=== PATIENT | female | born 1930 | race Caucasian/White ===

== ENCOUNTER 2016-11-11 08:35 | Inpatient (IN) | payer MEDICARE ==
[~2016-11-11] VITALS: Ht 152.4 cm; Wt 49.9 kg
[2016-11-11] VITALS (16 sets, daily range): BP systolic 138–165; BP diastolic 67–100
[~2016-11-11 08:35] MED LIST: AMT25T PO; APIX5TAB2 PO; ASPI-266 PO; ATRV10T PO; BETA1TAB15 PO; BIOTIN; BIOTIN 5000MCG PO; CALC-80 PO; CALCIUM 1000 MG PO; CONJUGATED ESTROGENS; CORAL CALCIUM; DILT240C PO; DILT240T10 PO; ESTR0.5T3 VG; FISH1CAP15 PO; LISI10TA PO; LSNP20T PO; LVT.05T PO; MCLZ25TRX; MPR22T TP; MTP25TSR PO; NFBIOT1000 PO; OMEP20CA12 PO; OMG1KC PO; SULF1TAB35 PO; [UNRECOGNIZED DRUG - OTHER]
--- OUTSIDE RECORDS SUMMARY | 2016-11-11 08:41 | XMS REPORT | Continuity of Care Document ---
Author Author [facility] Organization [facility] Address Unknown Phone Unavailable Care Team Providers Care Associate Accountant Name Role Phone NALINI ZARCO DO PCP Insurance Providers Payer Name Policy Number Subscriber Name Relationship [employer] Medicare [id number] Cristal Howard 18 Self / Same As Patient [employer] [facility] Supp [id number] Cristal Howard 18 Self / Same As Patient Advance Directives Directive Response Recorded Date/Time Advance Directives Yes 10/23/16 7:57pm Health Care Power of Magazine Supervisor No 10/23/16 7:57pm Organ Donor No 10/23/16 7:57pm Resuscitation Status Full Code 10/23/16 7:57pm Chief Complaint and Reason for Visit Chief Complaint Trauma-Non Activation Reason for Visit Status post fall Pahizqbvvb-jbizhphxf-tzoprkf (DPT) vaccination administeredat current visit Head contusion MINOR LACERATION TO LEFT 5TH FINGER MINOR LACERATION TO SCALP Problems Active Problems Medical Problem Onset Date Status Acute myocardial infarction Unknown Acute Pyccmppxqu-odsalymun-aovjgpk (DPT) vaccination administeredat current visit Unknown Acute Head contusion Unknown Acute Head injury, acute Unknown Acute Head injury, acute Unknown Acute Status post fall Unknown Acute Medications Current Home Medications Medication Dose Units Route Directions Days/Qty Instructions Start Date Atorvastatin Calcium 10 Mg 10 Mg Oral Mon, Wed, Fri 07/21/08 Amitriptyline Hcl 25 Mg 25 Mg Oral Bedtime 07/21/08 Omeprazole 20 Mg 20 Mg Oral Daily 07/21/08 Levothyroxine Sodium (Levothroid) 50 Mcg 50 Mcg Oral Daily 03/12/13 Fish Oil/Dha/Epa 1 Each 1,200 Mg Oral Twice A Day 01/06/14 [Biotin 5000MCG] 5,000 Mcg Oral Daily 01/06/14 Calcium Carbonate/Vitamin D3 1 Each 1 Tab Oral Twice A Day 01/06/14 Vit A/Vit C/Vit E/Zinc/Copper 1 Each 1 Tab Oral Daily 01/06/14 Apixaban 5 Mg 5 Mg Oral Twice A Day 12/15/14 Diltiazem Hcl 240 Mg 240 Mg Oral Daily 12/16/14 Past Home Medications Medication Directions Ordered Status [Occivite] , 07/21/08 Discontinued [Biotin] , 07/21/08 Discontinued [Premarin 3MG] , 07/21/08 Discontinued Fish Oil 1,000 Mg Cap, 1000 Mg Oral Daily 07/21/08 Discontinued [Coral Calcium 1000] , 07/21/08 Discontinued Meclizine Hcl 25 Mg Tab, 07/21/08 Discontinued Lisinopril (Zestril) 10 Mg Tablet, 10 Mg Oral Daily 10/02/09 Discontinued Mupirocin 22 Gm Tube, 0 Topical Three Times A Day 10/02/09 Discontinued Trimethoprim/Sulfamethoxazole 1 Each Tablet, 1 Each Oral Twice A Day Discontinued Biotin 1,000 Mcg Tablet, 1000 Mcg Oral Daily 01/06/14 Discontinued Estradiol 0.5 Mg Tablet, 0.5 Mg Vaginal 01/06/14 Discontinued [Calcium 1000MG] , 1000 Mg Oral Daily 01/06/14 Discontinued Lisinopril 20 Mg Tab, 20 Mg Oral Daily@0900 01/07/14 Discontinued Metoprolol Succinate (Metoprolol Er 25MG) 25 Mg Tab, 25 Mg Oral Daily Discontinued Diltiazem Hcl (Cardizem Cd) 240 Mg Cap.sr.24h, 240 Mg Oral Daily 12/15/14 Discontinued Aspirin 81 Mg Tablet.dr, 81 Mg Oral Daily 12/15/14 Discontinued Social History Social History Problem Response Recorded Date/Time Alcohol Use Denies Use 12/15/2014 8:15pm Recreational Drug Use No 12/15/2014 8:15pm Recent Foreign Travel No 10/23/2016 7:57pm Recent Infectious Disease Exposure No 10/23/2016 7:57pm Hospitalization with Isolation Denies 10/23/2016 7:57pm Sexually Transmitted Disease No 10/23/2016 7:57pm HIV/AIDS No 10/23/2016 7:57pm Smoking Status Never a Smoker 10/23/2016 7:57pm Recent Hopitalizations No 10/23/2016 7:57pm Sexually Transmitted Disease No 10/23/2016 7:57pm Hospitalization with Isolation Denies 10/23/2016 7:57pm Query Response Start Date Stop Date Smoking Status Never a Smoker Hospital Discharge Instructions No hospital discharge instructions. Plan of Care Discharge Date 10/23/16 9:20pm Disposition 01 HOME, SELF-CARE Condition at Discharge Stable Instructions/Education Provided Diphtheria and Tetanus Toxoids, and Acellular Pertussis Vaccine Preventing Falls in the Older Adult Minor Head Injury (DC) Skin Abrasions (DC) Getting Up From a Fall Prescriptions See Medication Section Referrals NALINI ZARCO DO - Primary Care Physician Additional Instructions/Education USE WALKER AT ALL TIMES TYLENOL NEEDED FOR PAIN FOLLOW UP WITH YOUR DR NEEDED All discharge instructions reviewed with patient and/or family. Voiced understanding. Functional Status No functional status results. Allergies, Adverse Reactions, Alerts Allergen Type Severity Reaction Status Last Updated egg ([id number]) Allergy Mild Active 07/19/08 Immunizations Name Given Type DTaP-Tetanus, Dipth, Pertuss P/F (Boostrix) 10/23/16 Administered Vital Signs Acute Vital Signs Vital Response Date/Time Temperature (Fahrenheit) 97.2 degrees F (97.6 - 99.5) 10/23/2016 7:57pm Temperature (Calculated Celsius) 36.83323 degrees C (36.4 - 37.5) 10/23/2016 7:57pm Temperature Source Temporal 10/23/2016 7:57pm Pulse Rate (adult) 87 bpm (60 - 90) 10/23/2016 7:57pm Respiratory Rate 14 bpm (12 - 24) 10/23/2016 7:57pm O2 Sat by Pulse Oximetry 97 % (88 - 100) 10/23/2016 7:57pm Blood Pressure 177/102 mm Hg 10/23/2016 7:57pm Blood Pressure Mean 127 mm Hg 10/23/2016 7:57pm Pain Height (Feet) 4 feet 10/23/2016 7:57pm Height (Inches) 11.00 inches 10/23/2016 7:57pm Height (Calculated Centimeters) 149.783894 cm 10/23/2016 7:57pm Weight (Pounds) 120 pounds 10/23/2016 7:57pm Weight (Ounces) 2.0 oz 10/23/2016 7:57pm Weight (Calculated Grams) 96570.784 gm 10/23/2016 7:57pm Weight (Calculated Kilograms) 54.502761 kilograms 10/23/2016 7:57pm Calculated BMI 24.23 10/23/2016 7:57pm Capillary Refill Capillary Refill Less Than 3 Seconds 10/23/2016 7:57pm Results No known relevant diagnostic tests, laboratory data and/or discharge summary. Procedures No known history of procedures. Encounters Encounter Location Arrival/Admit Date Discharge/Depart Date Attending Provider Departed Emergency Room [facility] 10/23/16 7:19pm 10/23 9:20pm EDIL PHELPS DO Recent Diagnosis
[2016-11-11] MEDS ORDERED: DILTIAZEM 25 MG/5 ML INJ (CARDIZEM) VIAL ONE (08:42)
--- NOTE | 2016-11-11 08:57 | ED Cardiac General ---
History of Present Illness General Chief Complaint: Cardiac/General Problems Stated Complaint: HEART PALPITATIONS Source: patient (SOMEWHAT LIMITED HISTORIAN) History of Present Illness Time seen by provider: 08:35 Initial Comments PT ARRIVES VIA POV--WAS FOUND BY RADIOLOGY STAFF TO BE WALKING DOWN THE [place], STATING SHE WAS TRYING TO GET TO DR. OCAMPO'S OFFICE ( PT WAS UNAWARE THAT IT WAS A SATURDAY OR NOVEMBER FIRST) PT STATES SHE FELT FINE ALL DAY YESTERDAY AND WHEN SHE WENT TO BED, BUT WOKE UP SOME TIME DURING THE NIGHT WITH PALPITATIONS--STATES IT WOKE HER UP AND HER HEART WAS RACING INITIALLY STATED THAT SHE HAD CHEST PAIN ALL NIGHT, BUT THEN LATER STATES SHE DID NOT HAVE ANY PAIN --ONLY PALPITATIONS NO SHORTNESS OF BREATH NO SWEATS NO SWELLING IN LEGS/FEET OR PAIN IN CALVES NO NAUSEA NO HISTORY OF IRREGULAR HEART BEAT PER PT, BUT OLD RECORDS REPORT A FIB/FLUTTER PT SEEN HERE 10/23/16 AFTER A FALL WHEN AT THE [employer] [facility] ( PT STATES IT WAS ON THE ) --HAS FREQUENT FALLS, DOES NOT USE A WALKER EVEN THOUGH SHE HAS 2 AT HOME, AND WAS GIVEN ONE LAST TIME TO KEEP IN HER VEHICLE. Allergies and Home Medications Allergies Coded Allergies: egg (Unverified Allergy, Mild, 07/19/08) Home Medications 5,000 MCG PO DAILY (Reported) Amitriptyline Hcl 25 Mg Tablet 25 MG PO HS (Reported) Apixaban 5 Mg Tablet 5 MG PO BID (Reported) Atorvastatin Calcium 10 Mg Tablet 10 MG PO MON, WED, FRI (Reported) Calcium Carbonate/Vitamin D3 1 Each Tablet 1 TAB PO BID (Reported) Diltiazem HCl 240 Mg Tab.er.24h 240 MG PO DAILY (Reported) Fish Oil/Dha/Epa 1 Each Capsule 1,200 MG PO BID (Reported) Levothyroxine Sodium 50 Mcg Tablet 50 MCG PO DAILY (Reported) Omeprazole 20 Mg Capsule.dr 20 MG PO DAILY (Reported) Vit A/Vit C/Vit E/Zinc/Copper 1 Each Tablet 1 TAB PO DAILY (Reported) Review of Systems Constitutional: no symptoms reported Respiratory: No Symptoms Reported Cardiovascular: See HPI Gastrointestinal: No Symptoms Reported Genitourinary: No Symptoms Reported Musculoskeletal: no symptoms reported Skin: no symptoms reported Psychiatric/Neurological: No Symptoms Reported Endocrine: No Symptoms Reported Hematologic/Lymphatic: No Symptoms Reported Past Kdvqrvk-Kzjqyt-Syijzz Hx Patient Social History Alcohol Use: Denies Use Recreational Drug Use: No Smoking Status: Never a Smoker Recent Hopitalizations: No Immunizations Up To Date Tetanus Booster (TDap): Unknown Seasonal Allergies Seasonal Allergies: No Surgeries HX Surgeries: Yes (CARDIAC CATH 2013--NO INTERVENTION; HEMORRHOIDECTOMY; HYST/ BSO; CATARACTS; ANTERIOR REPAIR WITH CYSTOSCOPY) Surgeries: Appendectomy, Bladder Surgery, Cardiac, Eye Surgery, Gallbladder, Hysterectomy, Oophorectomy, Rectal Respiratory Hx Respiratory Disorders: No Cardiovascular Hx Cardiac Disorders: Yes (CATH 2013--NO INTERVENTION, MILD TO MODERATE DISEASE ) Cardiac Disorders: Atrial Fibrillation, Coronary Artery Disease, Heart Attack, High Cholesterol, Hypertension Neurological Hx Neurological Disorders: No Reproductive System Hx Reproductive Disorders: No Sexually Transmitted Disease: No HIV/AIDS: No Female Reproductive Disorders: Denies Genitourinary Hx Genitourinary Disorders: Yes (CYSTOCELE AND INCONTINENCE) Gastrointestinal Hx Gastrointestinal Disorders: No Musculoskeletal Hx Musculoskeletal Disorders: Yes (FALLS) Musculoskeletal Disorders: Arthritis Endocrine Hx Endocrine Disorders: Yes Endocrine Disorders: Hypothyroidsim HEENT HX ENT Disorders: Yes HEENT Disorders: Cataract Cancer Hx Cancer: No Psychosocial Hx Psychiatric Problems: No Integumentary HX Skin/Integumentary Disorder: No Blood Transfusions Hx Blood Disorders: No Adverse Reaction to a Blood Tr: No Physical Exam Vital Signs Vital Sign - Last 12Hours 11/11/16 08:35 Temp 98.0 Pulse 120 Resp 18 B/P 144/60 Pulse Ox 96 O2 Delivery Nasal Cannula O2 Flow Rate 2 Capillary Refill : General Appearance: No Apparent Distress WD/WN Other (WELL GROOMED) HEENT: PERRL/EOMI Neck: Full Range of Motion Normal Inspection Non Tender Supple Respiratory: Normal Breath Sounds No Accessory Muscle Use No Respiratory Distress Cardiovascular: No Edema No JVD Normal Peripheral Pulses Systolic Murmur (11/16 ) Irregularly Irregular Tachycardia Gastrointestinal: Normal Bowel Sounds No Organomegaly No Pulsatile Mass Non Tender Soft Extremity: Normal Capillary Refill Normal Inspection Normal Range of Motion Non Tender No Calf Tenderness No Pedal Edema Neurologic/Psychiatric: Alert No Motor/Sensory Deficits Normal Mood/Affect vat packer II-XII Norm as Tested Other (SOMEWAHT DISORIENTED TO TIME/DATE) Skin: Normal Color Warm/Dry Other (OLD BRUISING TO BACK FROM FALL 2 WEEKS AGO) Progress/Results/Core Measures Results/Orders Lab Results Laboratory Tests Test 11/11/16 08:50 Range/Units Activated Partial Thromboplast Time 36 H 24-35 SEC Alanine Aminotransferase (ALT/SGPT) 14 0-55 U/L Albumin 4.0 3.2-4.5 G/DL Alkaline Phosphatase 113 40-136 U/L Anion Gap 12 5-14 MMOL/L Aspartate Amino Transf (AST/SGOT) 20 5-34 U/L B-Type Natriuretic Peptide 86.8 <100.0 PG/ML BUN/Creatinine Ratio 18 Basophils # (Auto) 0.0 0.0-0.1 10^3/uL Basophils (%) (Auto) 0 0-10 % Blood Urea Nitrogen 23 H 7-18 MG/DL Calcium Level 9.6 8.5-10.1 MG/DL Carbon Dioxide Level 22 21-32 MMOL/L Chloride Level 108 H 98-107 MMOL/L Creatine Kinase MB 2.7 <6.6 NG/ML Creatinine 1.27 0.60-1.30 MG/DL Eosinophils # (Auto) 0.1 0.0-0.3 10^3/uL Eosinophils (%) (Auto) 2 0-10 % Estimat Glomerular Filtration Rate 40 Glucose Level 89 70-105 MG/DL Hematocrit 40 35-52 % Hemoglobin 12.8 11.5-16.0 G/DL INR Comment 1.6 H 0.8-1.4 Lymphocytes # (Auto) 1.8 1.0-4.0 X 10^3 Lymphocytes (%) (Auto) 24 12-44 % Magnesium Level 2.1 1.8-2.4 MG/DL Mean Corpuscular Hemoglobin 29 25-34 PG Mean Corpuscular Hemoglobin Concent 32 32-36 G/DL Mean Corpuscular Volume 91 80-99 FL Mean Platelet Volume 9.5 7.4-10.4 FL Monocytes # (Auto) 0.6 0.0-1.0 X 10^3 Monocytes (%) (Auto) 9 0-12 % Neutrophils # (Auto) 4.9 1.8-7.8 X 10^3 Neutrophils (%) (Auto) 65 42-75 % Platelet Count 290 130-400 10^3/uL Potassium Level 4.4 3.6-5.0 MMOL/L Prothrombin Time 18.6 H 12.2-14.7 SEC Red Blood Count 4.35 4.35-5.85 10^6/uL Red Cell Distribution Width 14.2 10.0-14.5 % Sodium Level 142 135-145 MMOL/L TSH [place] Testing 3.38 0.35-4.94 UIU/ML Total Bilirubin 0.4 0.1-1.0 MG/DL Total Creatine Kinase 100 29-168 U/L Total Protein 7.0 6.4-8.2 G/DL Troponin I < 0.30 <0.30 NG/ML White Blood Count 7.5 4.3-11.0 10^3/uL My Orders Orders-EDIL PHELPS DO Diltiazem Injection (Cardizem Injection) (11/11/16 09:00) Sodium Chloride (Ad... W/Diltiazem Drip (11/11/16 09:00) Aspirin Chewable Tablet (Baby Aspirin Ch (11/11/16 09:00) Enoxaparin Injection (Lovenox Injection) (11/11/16 09:00) Cbc With Automated Diff (11/11/16 08:48) Comprehensive Metabolic Panel (11/11/16 08:48) Creatine Kinase (11/11/16 08:48) Creatine Kinase Mb (11/11/16 08:48) Partial Thromboplastin Time (11/11/16 08:48) Protime With Inr (11/11/16 08:48) Troponin I (11/11/16 08:48) Chest 1 View, Ap/Pa Only (11/11/16 08:48) O2 (11/11/16 08:48) Ekg Tracing (11/11/16 08:48) BNP (11/11/16 08:48) Monitor-Rhythm Ecg Trace Only (11/11/16 08:48) Magnesium (11/11/16 08:48) Thyroid Analyzer (11/11/16 08:48) Diltiazem Injection (Cardizem Injection) (11/11/16 08:42) Medications Given in ED Current Medications Medications Dose Ordered Sig/Janiya Route Start Time Stop Time Status Last Admin Dose Admin Aspirin 324 mg ONCE ONCE PO 11/11/16 09:00 11/11/16 09:01 DC 11/11/16 08:58 324 MG Diltiazem HCl 25 mg STK-MED ONCE .ROUTE 11/11/16 08:42 11/11/16 08:49 DC 11/11/16 08:52 10 MG Enoxaparin Sodium 70 mg ONCE ONCE SC 11/11/16 09:00 11/11/16 09:01 DC 11/11/16 08:59 70 MG Vital Signs/I&O Vital Sign - Last 12Hours 11/11/16 11/11/16 11/11/16 11/11/16 08:35 08:35 08:58 09:35 Temp 98.0 Pulse 120 78 100 Resp 18 18 B/P 144/60 144/80 151/78 Pulse Ox 96 100 O2 Delivery Nasal Cannula Room Air O2 Flow Rate 2 Progress Note : Progress Note RATE DOWN WITH CARDIZEM DRIP UNEVENTFUL ER STAY ECG Initial ECG Impression Time: 08:46 Initial ECG Rate: 108 Initial ECG Rhythm: A Fib/Flutter Initial ECG Comparisson: Changed (FROM NSR) Diagnostic Imaging Comments CXR --NO ACUTE PROCESS, PER RADIOLOGIST REPORT @ 0955 Reviewed: Reviewed by Me Departure Communication Progress Notes 0955--SPOKE WITH DR. BOOTHE, SUPERVISOR UNLOADING FOR DR. ZARCO, ACCEPTS PT FOR ADMIT 0956--SPOKE WITH DR. MARQUEZ FOR CARDIOLOGY CONSULT Impression Impression: Primary Impression: Atrial fibrillation with RVR Additional Impression: Hx of coronary artery disease Disposition: ADMITTED INPATIENT Condition: Improved Decision to Admit Reason: Admit from ER (General) Decision to Admit/Date: Nov 11, 2016 Time/Decision to Admit Time: 10:00 Departure-Patient Inst. Referrals: NALINI ZARCO DO (PCP/Family) Primary Care Physician EDIL PHELPS DO Nov 11, 2016 08:57
[2016-11-11] MEDS ORDERED: ASPIRIN 81 MG CHEW (CHILDREN'S ASA) PO ONE (09:00)
[2016-11-11] MEDS ORDERED: DILTIAZEM 25 MG/5 ML INJ (CARDIZEM) VIAL IVP ONE (09:00)
[2016-11-11] MEDS ORDERED: ENOXAPARIN 80 MG/0.8 ML (LOVENOX) SYR SC ONE (09:00)
[2016-11-11] MEDS ORDERED: DILTIAZEM DRIP 100 MG in SODIUM CHLORIDE (ADD-VANTAGE) 100 ML IV SCH (09:00)
[2016-11-11 09:02] LABS: BASOPHILS % (AUTO) 0 % (0-10); EOSINOPHILS # (AUTO) 0.1 10^3/uL (0.0-0.3); EOSINOPHILS % (AUTO) 2 % (0-10); LYMPHOCYTES # (AUTO) 1.8 X 10^3 (1.0-4.0); LYMPHOCYTES % (AUTO) 24 % (12-44); MEAN CORPUSCULAR HEMOGLOBIN 29 PG (25-34); MEAN CORPUSCULAR HGB CONC 32 G/DL (32-36); MEAN CORPUSCULAR VOLUME 91 FL (80-99); MEAN PLATELET VOLUME 9.5 FL (7.4-10.4); MONOCYTES # (AUTO) 0.6 X 10^3 (0.0-1.0); MONOCYTES % (AUTO) 9 % (0-12); NEUTROPHILS # (AUTO) 4.9 X 10^3 (1.8-7.8); NEUTROPHILS % (AUTO) 65 % (42-75); PLATELET COUNT 290 10^3/uL (130-400); RED BLOOD COUNT 4.35 10^6/uL (4.35-5.85); RED CELL DISTRIBUTION WIDTH 14.2 % (10.0-14.5); WHITE BLOOD COUNT 7.5 10^3/uL (4.3-11.0)
[2016-11-11 09:13] LABS: INR 1.6 (0.8-1.4); PROTHROMBIN TIME PATIENT 18.6 SEC (12.2-14.7)
[2016-11-11 09:19] LABS: ALANINE AMINOTRANSFERASE 14 U/L (0-55); ANION GAP 12 MMOL/L (5-14); ASPARTATE AMINO TRANSFERASE 20 U/L (5-34); BILIRUBIN,TOTAL 0.4 MG/DL (0.1-1.0); BLOOD UREA NITROGEN 23 MG/DL (7-18); BUN/CREATININE RATIO 18; CALCIUM 9.6 MG/DL (8.5-10.1); CARBON DIOXIDE 22 MMOL/L (21-32); CHLORIDE 108 MMOL/L (98-107); CREATINE KINASE 100 U/L (29-168); CREATININE SERUM 1.27 MG/DL (0.60-1.30); GFR ESTIMATED 40; GLUCOSE 89 MG/DL (70-105); MAGNESIUM 2.1 MG/DL (1.8-2.4); POTASSIUM 4.4 MMOL/L (3.6-5.0); SODIUM 142 MMOL/L (135-145)
[2016-11-11 09:38] LABS: TROPONIN I < 0.30 NG/ML (<0.30)
--- NOTE | 2016-11-11 09:43 | Diagnostic Imaging Report ---
Indication: Heart palpitations Indication: Arrhythmia Portable chest 9:30 AM Heart size and pulmonary vascularity are normal. Lungs are clear. There are no effusions or pneumothoraces. Impression: Negative chest Dictated by: Dictated on workstation # [id number]
[2016-11-11] MEDS ORDERED: CATHETER FLUSH 10 ML SYR IV PRN (11:30)
[2016-11-11] MEDS: DILTIAZEM DRIP 100 MG/NS 100 ML IV SCH ×2 (11:30)
--- NOTE | 2016-11-11 13:44 | Consultation-Cardiology ---
HPI-Cardiology Cardiology Consultation: Date of Consultation 11/11/16 Date of Admission Attending Physician Lucas Pantoja DO Admitting Physician Jessica Girard DO Consulting Physician Keena ARELLANO MD HPI: Chief Complaint: Palpitations This is a pleasant 86-year-old lady who is a patient of Dr. Pantoja and Dr. Santiago. She has history of atrial fibrillation. She has mild to moderate coronary artery disease on coronary angiography which showed a 50 percent stenosis in the RCA. She's been on Cardizem and Eliquis for atrial fibrillation. She had a recent syncopal episode when the dose of Cardizem was reduced. She presented with increased palpitations. She denies any shortness of breath or chest pain. Review of Systems-Cardiology Review of Systems Constitutional: No As described under HPI, No no symptoms reported, No chills, No fever, No lightheadedness, No malaise, No tiredness, No weight loss, No weight gain, No other Eyes: No As described under HPI, No no symptoms reported, No blindness, No blurred vision, No contact lenses, No drainage, No decreased acuity, No foreign body sensation, No glasses, No inflammation, No pain, No photophobia, No previous injury, No shadows, No tunnel vision, No other, No vision change Ears/Nose/Throat: No As described under HPI, No no symptoms reported, No chronic hearing loss, No epistaxis, No ear discharge, No ear pain, No loose teeth, No mouth pain, No mouth swelling, No nasal drainage, No nose pain, No recent hearing loss, No throat pain, No throat swelling, No ulcerations, No other Respiratory: No no symptoms reported, No As described under HPI, No cough, No orthopnea, No shortness of breath, No SOB with excertion, No SOB at rest, No stridor, No wheezing, No other Cardiovascular: palpitations Gastrointestinal: No no symptoms reported, No As described under HPI, No abdomen distended, No abdominal pain, No blood streaked bowels, No constipation , No diarrhea, No difficulty swallowing, No nausea, No poor appetite, No poor fluid intake, No rectal bleeding, No vomiting, No other, No nausea/vomiting/ diarrhea, No stool coloration changes Genitourinary: No no symptoms reported, No As described under HPI, No burning, No dysuria, No discharge, No frequency, No flank pain, No hematuria, No incontinence, No pain, No urgency, No other, No urine frequency changes, No urine coloration changes Musculoskeletal: No no symptoms reported, No As describe under HPI, No back pain, No gout, No joint pain, No joint swelling, No muscle pain, No muscle stiffness, No neck pain, No other Skin: No no symptoms reported, No As described under HPI, No change in color, No change in hair/nails, No dryness, No lesions, No lumps, No rash, No other, No skin related problems, No ulcerations, No rash on exposed areas, No ulcerations on exposed areas Psychiatric/Neurological: No As described under HPI, No anxiety, No depression , No emotional problems, No focal weakness, No headache, No no symptoms reported , No numbness, No other, No pre-existing deficit, No seizure, No syncope, No tingling, No tremors, No weakness Hematologic: No no symptoms reported, No As described under HPI, No anemia, No blood clots, No easy bleeding, No easy bruising, No swollen glands, No other, No bleeding abnormalities [id number]-[id number] Hx Patient Social History Alcohol Use: Denies Use Recreational Drug Use: No Smoking Status: Never a Smoker Recent Foreign Travel: No Recent Infectious Disease Expo: No Hospitalization with Isolation: Denies Physical Abuse Screen: No Sexual Abuse: No Immunizations Up To Date Tetanus Booster (TDap): Unknown Past Medical History PMH As described under Assessment. Allergies and Home Medications Allergies Coded Allergies: No Known Drug Allergies (Unverified , 11/11/16) Home Medications 5,000 MCG PO DAILY (Reported) Amitriptyline Hcl 25 Mg Tablet 25 MG PO HS (Reported) Apixaban 5 Mg Tablet 5 MG PO BID (Reported) Atorvastatin Calcium 10 Mg Tablet 10 MG PO MON, WED, FRI (Reported) Calcium Carbonate/Vitamin D3 1 Each Tablet 1 TAB PO BID (Reported) Diltiazem HCl 240 Mg Tab.er.24h 240 MG PO DAILY (Reported) Fish Oil/Dha/Epa 1 Each Capsule 1,200 MG PO BID (Reported) Levothyroxine Sodium 50 Mcg Tablet 50 MCG PO DAILY (Reported) Omeprazole 20 Mg Capsule.dr 20 MG PO DAILY (Reported) Vit A/Vit C/Vit E/Zinc/Copper 1 Each Tablet 1 TAB PO DAILY (Reported) Physical Exam-Cardiology Physical Exam Vital Signs/I&O Vital Sign - Last 12Hours 11/11/16 11/11/16 11/11/16 11/11/16 08:35 08:35 08:58 09:35 Temp 98.0 Pulse 120 78 100 Resp 18 18 B/P 144/60 144/80 151/78 Pulse Ox 96 100 O2 Delivery Nasal Cannula Room Air O2 Flow Rate 2 11/11/16 11/11/16 11/11/16 11/11/16 10:39 10:50 12:00 13:00 Pulse 85 96 73 80 Resp 18 12 11 12 B/P 165/84 158/90 153/86 Pulse Ox 98 98 98 98 O2 Delivery Nasal Cannula Room Air Room Air Room Air O2 Flow Rate 2 Capillary Refill : Less Than 3 Seconds Constitutional: No appears stated age, No AAO x 3, No apparent distress, No PERRL, No well-developed, No well-nourished, No other HEENT: No PERRL, No normal ENT inspection, No TMs normal, No pharynx normal, No scleral icterus (R), No scleral icterus (L), No pale conjunctivae (R), No pale conjunctivae (L), No photophobia, No TM abnormal (R), No TM abnormal (L), No pharyngeal erythema, No tonsillar exudate, No other, No discharge, No EOMI, No hearing is well preserved, No hard of hearing, No oral hygience is good, No ulceration, No xanthelasmas are seen Neck: No non-tender, No full range of motion, No supple, No normal inspection, No carotid bruit, No limited range of motion, No lymphadenopathy (R), No lymphadenopathy (L), No tender lateral, No tender midline, No thyromegaly, No other, No carotid pulses are 2 + bilaterally, No with good upstrokes Respiratory: No accessory muscle use, No respiratory distress, No chest tender , No chest expansion is symmetric, No chest is bilaterally symmetric, No lungs clear to percussion, No lungs clear to auscultation, No crackles, No rhonchi, No rales, No stridor, No wheezing, No pleural rub, No other Cardiovascular: No regular rate-rhythm, irregularly irregularNo extra beats, No parasternal heave is noted, No JVD, No edema, No bradycardia, No tachycardia , No point of maximal impulse, No cardiac thrills are palpable, No S1 and S2, No gallop/S3, No gallop/S4, No diastolic murmur, No systolic murmur, No friction rub, No click, No other Gastrointestinal: No tender, No soft, No round, No distended, No pulsatile mass , No organomegaly, No guarding, No rebound, No tenderness, No hernia, No mass, No audible bowel sounds, No abnormal bowel sounds, No abdominal bruits, No spleenomegaly, No other Rectal: deferred Extremities: No normal range of motion, No non-tender, No normal inspection, No pedal edema, No calf tenderness, No normal capillary refill, No pelvis stable , No calf tenderness, No inflammation, No pedal edema, No slow capillary refill , No swelling, No other, No abrasion, No clubbing, No cyanosis, No ecchymosis, No laceration, No no lower extremity edema bilateral, No significant edema, No tenderness, No wound Neurologic/Psychiatric: No wheel aligner II-XII nml as tested, No no motor/sensory deficits, No alert, No normal mood/affect, No oriented x 3, No abnormal cerebellar tests, No abnormal wheel aligner II-XII, No abnormal gait, No aphasia, No EOM palsy, No facial droop, No motor weakness, No sensory deficit, No depressed affect, No disoriented x 3, No other, No grossly intact, No power is 5/5 both on sides Skin: No normal color, No warm/dry, No cyanosis, No cool, No diaphoresis, No damp, No ecchymosis, No jaundice, No mottled, No pallor, No rash, No tattoos/ piercings, No ulcerations, No rash on exposed areas, No ulcerations on exposed areas, No other Lymphatic: No no adenopathy, No axilla node tender (R), No axilla node tender ( L), No inguinal node tender (R), No inguinal node tender (L), No other Data Review Labs Laboratory Tests 11/11/16 08:50: Activated Partial Thromboplast Time 36H, Alanine Aminotransferase (ALT/SGPT) 14 , Albumin 4.0, Alkaline Phosphatase 113, Anion Gap 12, Aspartate Amino Transf ( AST/SGOT) 20, B-Type Natriuretic Peptide 86.8, BUN/Creatinine Ratio 18, Basophils # (Auto) 0.0, Basophils (%) (Auto) 0, Blood Urea Nitrogen 23H, Calcium Level 9.6, Carbon Dioxide Level 22, Chloride Level 108H, Creatine Kinase MB 2.7, Creatinine 1.27, Eosinophils # (Auto) 0.1, Eosinophils (%) (Auto ) 2, Estimat Glomerular Filtration Rate 40, Glucose Level 89, Hematocrit 40, Hemoglobin 12.8, INR Comment 1.6H, Lymphocytes # (Auto) 1.8, Lymphocytes (%) ( Auto) 24, Magnesium Level 2.1, Mean Corpuscular Hemoglobin 29, Mean Corpuscular Hemoglobin Concent 32, Mean Corpuscular Volume 91, Mean Platelet Volume 9.5, Monocytes # (Auto) 0.6, Monocytes (%) (Auto) 9, Neutrophils # (Auto) 4.9, Neutrophils (%) (Auto) 65, Platelet Count 290, Potassium Level 4.4, Prothrombin Time 18.6H, Red Blood Count 4.35, Red Cell Distribution Width 14.2, Sodium Level 142, TSH Morrill Testing 3.38, Total Bilirubin 0.4, Total Creatine Kinase 100, Total Protein 7.0, Troponin I < 0.30, White Blood Count 7.5 ECG Impression ECG Initial ECG Impression: Atrial Fibrillation w/RVR A/P-Cardiology Assessment/Admission Diagnosis Atrial fibrillation, coronary artery disease, syncope Plan Give home dose of Cardizem 240 mg. Gradually taper off Cardizem infusion. Continue Eliquis. Discontinue aspirin. History of syncope is concerning, therefore, she will need to go home on an event monitor. Heart rate is much better controlled. Mild to moderate coronary artery disease; continue outpatient medications except aspirin. Thank you for your consultation. Please call me if you have any questions. John Arellano MD, FACP, FACC, FSCAI, FHRS, CCDS Interventional Cardiology Cardiac Electrophysiology Vascular Medicine and Endovascular Interventions Keena ARELLANO MD Nov 11, 2016 1:43 pm
[2016-11-11] MEDS: CATHETER FLUSH 10 ML SYR IV SCH ×2 (14:00→22:20)
[2016-11-11] MEDS ORDERED: ASPI-983 PO (14:17)
[2016-11-11] MEDS ORDERED: METO-270 PO (14:17)
--- NOTE | 2016-11-11 18:45 | History & Physicial ---
History of Present Illness History of Present Illness Reason for visit/HPI patient states she had palpitations. Patient woke up during the night and her heart is beating quick. Patient has history of atrial fibrillation. Patient had a syncopal episodes and the Cardizem dose was decreased. Surgeries appendectomy, gallbladder Date of Admission Nov 11, 2016 at 10:00 I consulted on this patient on 11/11/16 18:41 Attending Physician Lucas Boothe DO Admitting Physician Jessica Girard DO Consult Allergies and Home Medications Allergies Coded Allergies: No Known Drug Allergies (Unverified , 11/11/16) Home Medications 5,000 MCG PO DAILY (Reported) Amitriptyline Hcl 25 Mg Tablet 25 MG PO HS (Reported) Apixaban 5 Mg Tablet 5 MG PO BID (Reported) Aspirin 81 Mg Tablet.dr 81 MG PO DAILY (Reported) Atorvastatin Calcium 10 Mg Tablet 10 MG PO MON, WED, FRI (Reported) Calcium Carbonate/Vitamin D3 1 Each Tablet 1 TAB PO BID (Reported) Diltiazem HCl 240 Mg Tab.er.24h 240 MG PO DAILY (Reported) Fish Oil/Dha/Epa 1 Each Capsule 1,200 MG PO BID (Reported) Levothyroxine Sodium 50 Mcg Tablet 50 MCG PO DAILY (Reported) Metoprolol Succinate 25 Mg Tab.er.24h 25 MG PO DAILY (Reported) Omeprazole 20 Mg Capsule.dr 20 MG PO DAILY (Reported) Vit A/Vit C/Vit E/Zinc/Copper 1 Each Tablet 1 TAB PO DAILY (Reported) Past [id number]-[id number] Hx Patient Social History Alcohol Use: Denies Use Recreational Drug Use: No Smoking Status: Never a Smoker Physical Abuse Screen: No Sexual Abuse: No Recent Foreign Travel: No Contact w/other who traveled: No Recent Hopitalizations: No Recent Infectious Disease Expo: No Immunizations Up To Date Tetanus Booster (TDap): Unknown Seasonal Allergies Seasonal Allergies: No Surgeries HX Surgeries: Yes Surgeries: Appendectomy, Bladder Surgery, Cardiac, Eye Surgery, Gallbladder, Hysterectomy, Oophorectomy, Rectal Respiratory Hx Respiratory Disorders: No Cardiovascular Hx Cardiovascular Disorders: Yes (CATH 2013--NO INTERVENTION, MILD TO MODERATE DISEASE) Cardiac Disorders: Atrial Fibrillation, Coronary Artery Disease, Heart Attack, High Cholesterol, Hypertension Neurological Hx Neurological Disorders: No Reproductive System Hx Reproductive Disorders: No Sexually Transmitted Disease: No HIV/AIDS: No Female Reproductive Disorders: Denies Genitourinary Hx Genitourinary Disorders: Yes (CYSTOCELE AND INCONTINENCE) Gastrointestinal Hx Gastrointestinal Disorders: No Musculoskeletal Hx Musculoskeletal Disorders: Yes (FALLS) Musculoskeletal Disorders: Arthritis Endocrine Hx Endocrine Disorders: Yes Endocrine Disorders: Hypothyroidsim HEENT HX ENT Disorders: Yes HEENT Disorders: Cataract Cancer Hx Cancer: No Psychosocial Hx Psychiatric Problems: No Integumentary HX Skin/Integumentary Disorder: No Blood Transfusions Hx Blood Disorders: No Adverse Reaction to a Blood Tr: No Constitutional: weakness other (heart palpitation) EENTM: no symptoms reported Respiratory: no symptoms reported Cardiovascular: palpitations Gastrointestinal: constipation Genitourinary: no symptoms reported Physical Exam Vital Signs Vital Sign - Last 12Hours 11/11/16 08:35 Temp 98.0 Pulse 120 Resp 18 B/P 144/60 Pulse Ox 96 O2 Delivery Nasal Cannula O2 Flow Rate 2 Capillary Refill : Less Than 3 Seconds General Appearance: No Apparent Distress Thin Eyes: Bilateral Eye Normal Inspection HEENT: Normal ENT Inspection Neck: Full Range of Motion Normal Inspection Respiratory: Chest Non Tender Lungs Clear Normal Breath Sounds No Accessory Muscle Use No Respiratory Distress Cardiovascular: Irregularly Irregular Gastrointestinal: Non Tender Soft Assessment/Plan Assessment and Plan atrial fibrillation with RVR. Coronary artery disease. Hyperlipidemia Clinical Quality Measures DVT/VTE Risk/Contraindication: Risk Factor Score Per Nursin RFS Level Per Nursing on Admit: 4+=Very High LUCAS BOOTHE DO Nov 11, 2016 18:44
[2016-11-11] MEDS ORDERED: ATORVASTATIN CALCIUM 10 MG PO SCH (19:00)
[2016-11-11] MEDS: AMITRIPTYLINE 25 MG (ELAVIL) TAB PO SCH (20:10)
[2016-11-11] MEDS: APIXABAN 5 MG (ELIQUIS) TABLET PO SCH (20:10)
[2016-11-11] MEDS ORDERED: FISH OIL PO SCH (21:00)
[2016-11-11] MEDS ORDERED: DHA PO SCH (21:00)
[2016-11-11] MEDS ORDERED: EPA PO SCH (21:00)
[2016-11-11] MEDS ORDERED: [UNRECOGNIZED DRUG - OTHER] PO SCH (21:00)
[2016-11-12] VITALS (12 sets, daily range): BP systolic 108–152; BP diastolic 65–95
[2016-11-12 04:25] LABS: BASOPHILS % (AUTO) 0 % (0-10); EOSINOPHILS # (AUTO) 0.1 10^3/uL (0.0-0.3); EOSINOPHILS % (AUTO) 1 % (0-10); LYMPHOCYTES # (AUTO) 2.1 X 10^3 (1.0-4.0); LYMPHOCYTES % (AUTO) 28 % (12-44); MEAN CORPUSCULAR HEMOGLOBIN 30 PG (25-34); MEAN CORPUSCULAR HGB CONC 33 G/DL (32-36); MEAN CORPUSCULAR VOLUME 91 FL (80-99); MEAN PLATELET VOLUME 9.4 FL (7.4-10.4); MONOCYTES # (AUTO) 0.7 X 10^3 (0.0-1.0); MONOCYTES % (AUTO) 9 % (0-12); NEUTROPHILS # (AUTO) 4.6 X 10^3 (1.8-7.8); NEUTROPHILS % (AUTO) 62 % (42-75); PLATELET COUNT 279 10^3/uL (130-400); RED BLOOD COUNT 4.36 10^6/uL (4.35-5.85); RED CELL DISTRIBUTION WIDTH 14.3 % (10.0-14.5); WHITE BLOOD COUNT 7.5 10^3/uL (4.3-11.0)
[2016-11-12 04:58] LABS: ALBUMIN 3.7 G/DL (3.2-4.5); BILIRUBIN,TOTAL 0.3 MG/DL (0.1-1.0); CALCIUM 9.2 MG/DL (8.5-10.1); CREATININE SERUM 1.1 MG/DL (0.60-1.30); MAGNESIUM 2.4 MG/DL (1.8-2.4); PHOSPHORUS 2.9 MG/DL (2.3-4.7); POTASSIUM 3.8 MMOL/L (3.6-5.0); TOTAL PROTEIN 6.6 G/DL (6.4-8.2)
[2016-11-12] MEDS ORDERED: POTASSIUM CL 10MEQ/50ML IVPB 50 ML IV SCH (06:00)
[2016-11-12] MEDS ORDERED: KCL 20 MEQ TAB (K-DUR) PO SCH (06:00)
[2016-11-12] MEDS ORDERED: MAGNESIUM 1 GM/100 ML IVPB 100 ML IV SCH (06:00)
[2016-11-12] MEDS: CATHETER FLUSH 10 ML SYR IV SCH ×3 (06:17→20:52)
--- NOTE | 2016-11-12 08:50 | Diagnostic Imaging Report ---
INDICATION: Atrial fibrillation. FINDINGS: The lungs are clear. The heart and vessels are normal. There is no effusion or pneumothorax. Air trapping is a chronic finding. IMPRESSION: Clear hyperexpanded lungs; otherwise, negative. Dictated by: Dictated on workstation # [id number]
[2016-11-12] MEDS ORDERED: NON-FORMULARY MEDICATION 1 EA EA (Diltiazem HCl (Diltiazem ER) 240 MG) PO SCH (09:00)
[2016-11-12] MEDS ORDERED: DILTIAZEM 240 MG (CARDIZEM CD) CAP PO SCH (09:00)
[2016-11-12] MEDS: APIXABAN 5 MG (ELIQUIS) TABLET PO SCH ×2 (10:11→20:52)
[2016-11-12] MEDS: PANTOPRAZOLE 20 MG TABLET (PROTONIX) PO SCH (10:11)
[2016-11-12] MEDS: OMEGA 3 (FISH OIL) 1000 MG CAP PO SCH ×2 (10:11→20:52)
[2016-11-12] MEDS: LEVOTHYROXINE 50 MCG (LEVOTHROID) TAB PO SCH (10:11)
[2016-11-12] MEDS: DILTIAZEM DRIP 100 MG/NS 100 ML IV SCH ×2 (10:20)
[2016-11-12] MEDS ORDERED: DILT300C51 PO (11:55)
[2016-11-12] MEDS: DILTIAZEM 60 MG (CARDIZEM) TAB PO NR ×2 (12:27→12:37)
--- NOTE | 2016-11-12 13:02 | Progress Note (SOAP) ---
Subjective Subjective/Events-last exam Fwup atrial fibrillation with RVR, hypertension, history of CAD, recent syncopal episode. Off Cardizem drip but still complains of palpitations. Objective Exam Vital Signs Date Time Temp Pulse Resp B/P Pulse Ox O2 Delivery O2 Flow Rate FiO2 11/12/16 10:00 116 17 141/90 97 Room Air 11/12/16 09:00 97.5 11/12/16 09:00 102 11 123/79 97 Room Air 11/12/16 08:00 83 16 133/80 95 Room Air 11/12/16 07:00 82 15 149/65 93 Room Air 11/12/16 07:00 80 11/12/16 06:00 79 16 133/95 94 Room Air 11/12/16 05:00 73 15 117/84 95 Room Air 11/12/16 04:00 95 Room Air 11/12/16 04:00 73 17 127/92 94 Room Air 11/12/16 03:00 75 16 134/74 94 Room Air 11/12/16 02:00 73 16 152/87 95 Room Air 11/12/16 01:00 73 11/12/16 01:00 67 16 150/78 95 Room Air 11/12/16 00:00 94 Room Air 11/12/16 00:00 97.0 77 16 146/82 94 Room Air 11/11/16 23:00 80 17 147/92 94 Room Air 11/11/16 22:00 103 18 152/82 93 Room Air 11/11/16 21:00 87 15 138/89 96 Room Air 11/11/16 20:00 108 9 154/100 97 Room Air 11/11/16 20:00 96 Room Air 11/11/16 19:55 97.6 71 18 163/74 97 Room Air 11/11/16 19:00 80 11/11/16 19:00 79 13 156/74 95 Room Air 11/11/16 18:00 75 14 157/74 96 Room Air 11/11/16 17:00 74 13 155/85 96 Room Air 11/11/16 16:52 98.3 11/11/16 16:50 96 Room Air 11/11/16 16:00 75 12 158/75 95 Room Air 11/11/16 15:18 96 Room Air 11/11/16 15:00 73 18 143/70 97 Room Air 11/11/16 14:00 78 16 143/70 96 Room Air 11/11/16 13:10 86 I & O 11/12/16 07:00 Intake Total 800 ml Balance 800 ml Capillary Refill : Less Than 3 Seconds General Appearance: No Apparent Distress Neck: Supple Respiratory: Lungs Clear Cardiovascular: Systolic Murmur Gallop/S3 Irregularly Irregular Extremity: Non Tender No Calf Tenderness No Pedal Edema Neurologic/Psychiatric: Alert Oriented x3 Results Lab Laboratory Tests 11/11/16 14:55: Troponin I < 0.30 11/12/16 04:10: Alanine Aminotransferase (ALT/SGPT) 12, Albumin 3.7, Alkaline Phosphatase 111, Anion Gap 10, Aspartate Amino Transf (AST/SGOT) 18, BUN/Creatinine Ratio 17, Basophils # (Auto) 0.0, Basophils (%) (Auto) 0, Blood Urea Nitrogen 19H, Calcium Level 9.2, Carbon Dioxide Level 24, Chloride Level 108H, Creatinine 1.10 , Eosinophils # (Auto) 0.1, Eosinophils (%) (Auto) 1, Estimat Glomerular Filtration Rate 47, Glucose Level 93, Hematocrit 40, Hemoglobin 13.1, Lymphocytes # (Auto) 2.1, Lymphocytes (%) (Auto) 28, Magnesium Level 2.4, Mean Corpuscular Hemoglobin 30, Mean Corpuscular Hemoglobin Concent 33, Mean Corpuscular Volume 91, Mean Platelet Volume 9.4, Monocytes # (Auto) 0.7, Monocytes (%) (Auto) 9, Neutrophils # (Auto) 4.6, Neutrophils (%) (Auto) 62, Phosphorus Level 2.9, Platelet Count 279, Potassium Level 3.8, Red Blood Count 4.36, Red Cell Distribution Width 14.3, Sodium Level 142, Total Bilirubin 0.3, Total Protein 6.6, White Blood Count 7.5 Assessment/Plan Assessment/Plan Assess & Plan/Chief Complaint 1. Atrial Fibrillation with RVR--off cardizem drip and on oral Cardizem, await any further cardiology recommendations 2. Hypertension--stable 3. History of CAD--stable 4. Recent Syncope--likely due to A Fib with RVR or orthostasis but will consider event monitor on discharge as per cardiology recommendations Diagnosis/Problems: Clinical Quality Measures DVT/VTE Risk/Contraindication: Risk Factor Score Per Nursin RFS Level Per Nursing on Admit: 4+=Very High Contraindications-Pharm: Other *list below* NALINI ZARCO DO Nov 12, 2016 13:02
--- NOTE | 2016-11-12 13:45 | Cardiology Progress Note ---
Cardiology SOAP Progress Note Subjective: stable Objective: I&O/Vital Signs Vital Sign - Last 12Hours 11/12/16 11/12/16 11/12/16 11/12/16 10:00 12:00 13:00 15:55 Temp 97.4 99.1 Pulse 116 73 Resp 17 B/P 141/90 Pulse Ox 97 O2 Delivery Room Air 11/12/16 11/12/16 19:00 20:00 Temp 98.0 Pulse 61 60 Resp 20 B/P 108/76 Pulse Ox 95 O2 Delivery Room Air Intake and Output 11/12/16 00:00 Intake Total 400 ml Balance 400 ml Weight (Pounds): 111 Weight (Ounces): 0.0 Weight (Calculated Kilograms): [id number] Constitutional: No appears stated age, No AAO x 3, No apparent distress, No PERRL, No well-developed, No well-nourished, No other Respiratory: No accessory muscle use, No respiratory distress, No chest tender , No chest expansion is symmetric, No chest is bilaterally symmetric, No lungs clear to percussion, No lungs clear to auscultation, No crackles, No rhonchi, No rales, No stridor, No wheezing, No pleural rub, No other Cardiovascular: No regular rate-rhythm, irregularly irregularNo extra beats, No parasternal heave is noted, No JVD, No edema, No bradycardia, No tachycardia , No point of maximal impulse, No cardiac thrills are palpable, No S1 and S2, No gallop/S3, No gallop/S4, No diastolic murmur, No systolic murmur, No friction rub, No click, No other Gastrointestional: No tender, No soft, No round, No distended, No pulsatile mass, No organomegaly, No guarding, No rebound, No tenderness, No hernia, No mass, No audible bowel sounds, No abnormal bowel sounds, No abdominal bruits, No spleenomegaly, No other Extremities: No normal range of motion, No non-tender, No normal inspection, No pedal edema, No calf tenderness, No normal capillary refill, No pelvis stable , No calf tenderness, No inflammation, No pedal edema, No slow capillary refill , No swelling, No other, No abrasion, No clubbing, No cyanosis, No ecchymosis, No laceration, No no lower extremity edema bilateral, No significant edema, No tenderness, No wound Neurologic/Psychiatric: No registered midwife II-XII nml as tested, No no motor/sensory deficits, No alert, No normal mood/affect, No oriented x 3, No abnormal cerebellar tests, No abnormal registered midwife II-XII, No abnormal gait, No aphasia, No EOM palsy, No facial droop, No motor weakness, No sensory deficit, No depressed affect, No disoriented x 3, No other, No grossly intact, No power is 5/5 both on sides Skin: No normal color, No warm/dry, No cyanosis, No cool, No diaphoresis, No damp, No ecchymosis, No jaundice, No mottled, No pallor, No rash, No tattoos/ piercings, No ulcerations, No rash on exposed areas, No ulcerations on exposed areas, No other Results/Procedures: Labs Laboratory Tests 11/12/16 04:10: Alanine Aminotransferase (ALT/SGPT) 12, Albumin 3.7, Alkaline Phosphatase 111, Anion Gap 10, Aspartate Amino Transf (AST/SGOT) 18, BUN/Creatinine Ratio 17, Basophils # (Auto) 0.0, Basophils (%) (Auto) 0, Blood Urea Nitrogen 19H, Calcium Level 9.2, Carbon Dioxide Level 24, Chloride Level 108H, Creatinine 1.10 , Eosinophils # (Auto) 0.1, Eosinophils (%) (Auto) 1, Estimat Glomerular Filtration Rate 47, Glucose Level 93, Hematocrit 40, Hemoglobin 13.1, Lymphocytes # (Auto) 2.1, Lymphocytes (%) (Auto) 28, Magnesium Level 2.4, Mean Corpuscular Hemoglobin 30, Mean Corpuscular Hemoglobin Concent 33, Mean Corpuscular Volume 91, Mean Platelet Volume 9.4, Monocytes # (Auto) 0.7, Monocytes (%) (Auto) 9, Neutrophils # (Auto) 4.6, Neutrophils (%) (Auto) 62, Phosphorus Level 2.9, Platelet Count 279, Potassium Level 3.8, Red Blood Count 4.36, Red Cell Distribution Width 14.3, Sodium Level 142, Total Bilirubin 0.3, Total Protein 6.6, White Blood Count 7.5 A/P: Assessment/Dx: afib, mild to moderate CAD Plan: increase Cardizem to 300 mg. Gradually taper off Cardizem infusion. Continue Eliquis. Discontinue aspirin. History of syncope is concerning, therefore, she will need to go home on an event monitor. however, patient refused to wear an event monitor. She will see Dr Santiago/Sandy as outpatient and they can decide whether she needs to be monitored or not. Heart rate is much better controlled. Mild to moderate coronary artery disease; continue outpatient medications except aspirin. ok to discharge Keena ARELLANO MD Nov 12, 2016 1:45 pm Give home dose of Cardizem 240 mg. Gradually taper off Cardizem infusion. Continue Eliquis. Discontinue aspirin. History of syncope is concerning, therefore, she will need to go home on an event monitor. Heart rate is much better controlled. Mild to moderate coronary artery disease; continue outpatient medications except aspirin. Thank you for your consultation. Please call me if you have any questions. John Arellano MD, FACP, FACC, FSCAI, FHRS, CCDS Interventional Cardiology Cardiac Electrophysiology Vascular Medicine and Endovascular Interventions Keena ARELLANO MD Nov 12, 2016 1:45 pm
[2016-11-12] MEDS: AMITRIPTYLINE 25 MG (ELAVIL) TAB PO SCH (20:52)
[2016-11-12] MEDS ORDERED: ATORVASTATIN 10 MG (LIPITOR) TABLET PO SCH (21:00)
[2016-11-13] VITALS: BP 146/75
[2016-11-13] MEDS: DILTIAZEM DRIP 100 MG/NS 100 ML IV SCH ×2 (03:30)
[2016-11-13 03:54] LABS: BASOPHILS % (AUTO) 0 % (0-10); EOSINOPHILS # (AUTO) 0.2 10^3/uL (0.0-0.3); EOSINOPHILS % (AUTO) 2 % (0-10); LYMPHOCYTES # (AUTO) 2.6 X 10^3 (1.0-4.0); LYMPHOCYTES % (AUTO) 31 % (12-44); MEAN CORPUSCULAR HEMOGLOBIN 30 PG (25-34); MEAN CORPUSCULAR HGB CONC 33 G/DL (32-36); MEAN CORPUSCULAR VOLUME 91 FL (80-99); MEAN PLATELET VOLUME 9.7 FL (7.4-10.4); MONOCYTES # (AUTO) 0.8 X 10^3 (0.0-1.0); MONOCYTES % (AUTO) 9 % (0-12); NEUTROPHILS # (AUTO) 4.9 X 10^3 (1.8-7.8); NEUTROPHILS % (AUTO) 58 % (42-75); PLATELET COUNT 284 10^3/uL (130-400); RED BLOOD COUNT 4.51 10^6/uL (4.35-5.85); RED CELL DISTRIBUTION WIDTH 14.2 % (10.0-14.5); WHITE BLOOD COUNT 8.5 10^3/uL (4.3-11.0)
[2016-11-13 04:00] VITALS: BP 132/88
[2016-11-13 04:17] LABS: CALCIUM 9.1 MG/DL (8.5-10.1); CREATININE SERUM 1.27 MG/DL (0.60-1.30); MAGNESIUM 2.3 MG/DL (1.8-2.4); PHOSPHORUS 3.1 MG/DL (2.3-4.7); POTASSIUM 4.1 MMOL/L (3.6-5.0)
[2016-11-13] MEDS: CATHETER FLUSH 10 ML SYR IV SCH (06:08)
[2016-11-13 08:00] VITALS: BP 150/82
--- NOTE | 2016-11-13 08:22 | Discharge Inst-Simple/Standard ---
Discharge Inst-Standard Discharge Medications New, Converted or Re-Newed RX: Transmitted to Pharmacy Patient Instructions/Follow Up Plan of Care/Instructions/FU: Fwup with Dr. Santiago in 1-2weeks Activity as Tolerated: Yes Discharge Diet: Cardiac Diet Planned Outpatient Orders/Ref. Pneu Vac Indicated: Yes NALINI ZARCO DO Nov 13, 2016 8:22 am
[2016-11-13] MEDS: PANTOPRAZOLE 20 MG TABLET (PROTONIX) PO SCH (08:45)
[2016-11-13] MEDS: OMEGA 3 (FISH OIL) 1000 MG CAP PO SCH (08:45)
[2016-11-13] MEDS: APIXABAN 5 MG (ELIQUIS) TABLET PO SCH (08:45)
[2016-11-13] MEDS: LEVOTHYROXINE 50 MCG (LEVOTHROID) TAB PO SCH (08:45)
[2016-11-13] MEDS ORDERED: ASPIRIN E.C. 81 MG (ECOTRIN) TAB PO SCH (09:00)
[2016-11-13] MEDS ORDERED: DILTIAZEM 300 MG (CARDIZEM CD) CAP PO SCH (09:00)
[2016-11-13 10:35] VITALS: BP 150/82
--- NOTE | 2016-11-15 12:41 | Physician Query-Final Dx ---
KAPIL STINSON 11/15/16 1241: Final Diagnosis Give Final Diagnosis Please give Final Diagnosis NALINI ZARCO DO 11/20/16 1910: Final Diagnosis Give Final Diagnosis See Discharge Summary KAPIL STINSON Nov 15, 2016 12:41 NALINI ZARCO DO Nov 20, 2016 19:10
--- NOTE | 2016-11-20 19:09 | Discharge Summary ---
Diagnosis/Chief Complaint Date of Admission Nov 11, 2016 at 10:00 Date of Discharge Nov 13, 2016 at 10:55 Discharge Date: Nov 13, 2016 Admission Diagnosis Admission Diagnosis atrial fibrillation with RVR. Coronary artery disease. Hyperlipidemia Discharge Diagnosis 1. Atrial Fibrillation with RVR--improved 2. Hypertension 3. History of CAD 4. Hyperlipidemia 5. Recent Syncope 6. Hypothyroidism Discharge Summary Hospital Course Hospital Course This is an 86 year old female admitted to the ICU with atrial fibrillation with RVR. The patient is in chronic atrial fibrillation but presented to the emergency room due to worsening palpitations as well as recent syncopal episode. She was found to be in atrial fibrillation with RVR and was placed on a Cardizem drip. By the following day she was taken off the cardizem drip and switched back to oral cardizem. She continued to have heart rates up to the low 100s and continued to complain of palpitations so she was kept another day and her oral cardizem dose was increased. She was continued on her eliquis and all of her other home medications were resumed. By the day of discharge, her heart rate was ranging from 70s to 90s and she was having no further palpitations. Cardiology recommended she go home on an event monitor but the patient refused this and stated she would followup with Dr. Santiago in his office and discuss this with him. Procedures None. Consultations Dr. Arellano Discharge Physical Examination Allergies: Coded Allergies: No Known Drug Allergies (Unverified , 11/11/16) General Appearance: Alert, Oriented X3, Cooperative, No Acute Distress Respiratory: Clear to Auscultation Cardiovascular: Other (irregularly irregular) Extremities: No Clubbing, No Cyanosis, No Edema Neuro: Normal Gait, Normal Speech Psych/Mental Status: Mental Status NL, Mood NL Discharge Home Medications Reviewed and agree with Discharge Medication list on patient's Discharge Instruction sheet Instructions to Patient/Family Please see electonic discharge instructions given to patient. Clinical Quality Measures DVT/VTE Risk/Contraindication: Risk Factor Score Per Nursin RFS Level Per Nursing on Admit: 4+=Very High Contraindications-Pharm: Other *list below* NALINI ZARCO DO Nov 20, 2016 19:09
== END 2016-11-13 10:55 | disposition home or self-care (01) | DRG 310 ==
LOC: EDUNIT# 08:35 → ER 08:37 → ICU 10:00
PROVIDERS: ADMIT Family Medicine; ATTEND Family Medicine
DX: I48.91 Unspecified atrial fibrillation (principal); I25.10 Atherosclerotic heart disease of native coronary artery without angina pectoris; E78.5 Hyperlipidemia, unspecified; E03.9 Hypothyroidism, unspecified; I10 Essential (primary) hypertension; E78.00 Pure hypercholesterolemia, unspecified; I25.2 Old myocardial infarction; R29.6 Repeated falls; Z91.81 History of falling
CPT/HCPCS: 36415; 71010; 80048; 80053; 82550; 82553; 83735; 83880; 84100; 84443; 84484; 85025; 85610; 85730; 93005; 93041; 96365; 96366; 96372

== ENCOUNTER → 2017-08-28 | Outpatient (CLI) | payer MEDICARE ==
[~2017-08-28] MED LIST changes: +ASPI-983 PO; +DILT300C51 PO; +METO-270 PO
== END ==
LOC: CARD 08:36
PROVIDERS: ATTEND Internal Medicine Cardiovascular Disease
DX: I48.0 Paroxysmal atrial fibrillation (principal); I10 Essential (primary) hypertension; E78.2 Mixed hyperlipidemia; I27.20 Pulmonary hypertension, unspecified
CPT/HCPCS: 93306

== ENCOUNTER 2018-06-03 12:14 | Observation (INO) | payer MEDICARE ==
[~2018-06-03] VITALS: Ht 152.4 cm; Wt 50.8 kg
[~2018-06-03 12:14] MED LIST changes: -METO-270 PO; +METO-387 PO
--- NOTE | 2018-06-03 12:34 | ED Fall/Injury ---
General Chief Complaint: Trauma-Non Activation Stated Complaint: FALL,LEFT LEG INJ Source: patient Exam Limitations: no limitations History of Present Illness Date Seen by Provider: Jun 03, 2018 Time Seen by Provider: 12:15 Initial Comments Here with report of fall. Patient was exiting her car when she fell backward and landed on her left hip/pelvis and hit her head. Denies neck or back pain. Denies abdominal chest pain. Denies loss of consciousness. Does have swelling to the back of the head on the left. No bleeding. No bruising noted. Patient is on Eliquis. Occurred: just prior to arrival (proximal 30 minutes ago) Severity: moderate Injuries/Pain Location: head, pelvis Context: unknown Loss of Consciousness: no loss of consciousness Modifying Factors: Worse With Immobilization; Improves With Movement Associated Symptoms (Fall): No Chest Pain, No Confusion; Headache; No Lightheadedness, No Muscle Spasms, No Neck Pain, No Shortness of Air, No Slurred Speech Allergies and Home Medications Allergies Coded Allergies: No Known Drug Allergies (Unverified , 11/11/16) Home Medications Apixaban 5 Mg Tablet, 5 MG PO BID, (Reported) Aspirin 81 Mg Tablet.dr, 81 MG PO DAILY, (Reported) Atorvastatin Calcium 10 Mg Tablet, 10 MG PO MON, WED, FRI, (Reported) Calcium Carbonate/Vitamin D3 1 Each Tablet, 1 TAB PO BID, (Reported) Diltiazem HCl 300 Mg Cap.er.24h, 300 MG PO DAILY Prescribed by: SYDNIE TOMLIN on 11/12/16 1155 Fish Oil/Dha/Epa 1 Each Capsule, 1,200 MG PO BID, (Reported) Levothyroxine Sodium 50 Mcg Tablet, 50 MCG PO DAILY, (Reported) Metoprolol Succinate 25 Mg Tab.er.24h, 25 MG PO DAILY, (Reported) Omeprazole 20 Mg Capsule.dr, 20 MG PO DAILY, (Reported) Vit A/Vit C/Vit E/Zinc/Copper 1 Each Tablet, 1 TAB PO DAILY, (Reported) [Biotin 5000MCG] , 5,000 MCG PO DAILY, (Reported) Patient Home Medication List Home Medication List Reviewed: Yes Review of Systems Constitutional: see HPI; No chills, No fever Eyes: No Symptoms Reported Ears, Nose, Mouth, Throat: no symptoms reported; denies nose pain, denies mouth pain Respiratory: No short of breath, No wheezing Cardiovascular: No chest pain, No edema Gastrointestinal: No abdominal pain, No nausea, No vomiting Genitourinary: no symptoms reported Musculoskeletal: No back pain; joint pain; No muscle stiffness, No neck pain Skin: No change in color, No lesions Psychiatric/Neurological: Headache; Denies Weakness Past Ojhbajv-Annigk-Jstdud Hx Past Med/Social Hx: Reviewed Nursing Past Med/Soc Hx Patient Social History Alcohol Use: Denies Use Recreational Drug Use: No Smoking Status: Never a Smoker Recent Hopitalizations: No Immunizations Up To Date Tetanus Booster (TDap): Unknown Seasonal Allergies Seasonal Allergies: No Past Medical History Surgeries: Yes Appendectomy, Bladder Surgery, Cardiac, Eye Surgery, Gallbladder, Hysterectomy, Oophorectomy, Rectal Cardiac: Yes Atrial Fibrillation, Coronary Artery Disease, Heart Attack, High Cholesterol, Hypertension Reproductive Disorders: Yes Female Reproductive Disorders: Denies Sexually Transmitted Disease: No HIV/AIDS: No Gastrointestinal: No Musculoskeletal: No Arthritis Endocrine: Yes Hypothyroidsim HEENT: Yes Cataract Psychosocial: Yes Adverse Reaction/Blood Tranf: No Family Medical History Reviewed Nursing Family Hx No Pertinent Family Hx Physical Exam Vital Signs Vital Signs - First Documented Capillary Refill : Height, Weight, BMI Height: 5'0.00" Weight: 110lbs. 0.0oz. [id number]; 21.5 BMI Method:Stated General Appearance: WD/WN, no apparent distress HEENT: PERRL/EOMI, TMs normal, pharynx normal, other (small 3 x 3 cm area of contusion posterior scalp on the left side. No bleeding noted.) Neck: full range of motion, supple; No tender lateral, No tender midline Cardiovascular: regular rate, rhythm, no murmur Respiratory: lungs clear, normal breath sounds Peripheral Pulses: 2+ Dorsalis Pedis (R), 2+ Left Dors-Pedis (L), 2+ Radial Pulses (R), 2+ Radial Pulses (L) Gastrointestinal: non tender, soft Back: normal inspection, no CVA tenderness, no vertebral tenderness Extremities: pelvis stable, other (tender to the low pelvis posterior medial to the hip. No bruising or abrasions noted. Complains of pain to the left elbow and small amount of bruising noted there.) Neurologic/Psychiatric: alert, oriented x 3 Skin: normal color, warm/dry, ecchymosis (left lateral elbow) Jessa Coma Score Best Eye Response: (4) Open Spontaneously Best Verbal Response: (5) Oriented Best Motor Response: (6) Obeys Commands Progress/Results/Core Measures Results/Orders Lab Results Laboratory Tests Test 06/03/18 14:10 06/03/18 15:25 06/03/18 16:00 Range/Units Urine Color YELLOW Urine Clarity CLEAR Urine pH 7 5-9 Urine Specific [place] 1.005 L 1.016-1.022 Urine Protein NEGATIVE NEGATIVE Urine Glucose (UA) NEGATIVE NEGATIVE Urine Ketones NEGATIVE NEGATIVE Urine Nitrite NEGATIVE NEGATIVE Urine Bilirubin NEGATIVE NEGATIVE Urine Urobilinogen NORMAL NORMAL MG/DL Urine Leukocyte Esterase 3+ H NEGATIVE Urine RBC (Auto) NEGATIVE NEGATIVE Urine RBC NONE /HPF Urine WBC 5-10 H /HPF Urine Squamous Epithelial Cells 2-5 /HPF Urine Renal Epithelial Cells 0-2 /HPF Urine Crystals NONE /LPF Urine Bacteria TRACE /HPF Urine Casts NONE /LPF Urine Mucus NEGATIVE /LPF Urine Culture Indicated YES White Blood Count 10.2 4.3-11.0 10^3/uL Red Blood Count 4.49 4.35-5.85 10^6/uL Hemoglobin 13.9 11.5-16.0 G/DL Hematocrit 42 35-52 % Mean Corpuscular Volume 93 80-99 FL Mean Corpuscular Hemoglobin 31 25-34 PG Mean Corpuscular Hemoglobin Concent 33 32-36 G/DL Red Cell Distribution Width 14.2 10.0-14.5 % Platelet Count 288 130-400 10^3/uL Mean Platelet Volume 9.9 7.4-10.4 FL Neutrophils (%) (Auto) 82 H 42-75 % Lymphocytes (%) (Auto) 12 12-44 % Monocytes (%) (Auto) 5 0-12 % Eosinophils (%) (Auto) 1 0-10 % Basophils (%) (Auto) 0 0-10 % Neutrophils # (Auto) 8.4 H 1.8-7.8 X 10^3 Lymphocytes # (Auto) 1.2 1.0-4.0 X 10^3 Monocytes # (Auto) 0.5 0.0-1.0 X 10^3 Eosinophils # (Auto) 0.1 0.0-0.3 10^3/uL Basophils # (Auto) 0.0 0.0-0.1 10^3/uL Sodium Level 142 135-145 MMOL/L Potassium Level 4.5 3.6-5.0 MMOL/L Chloride Level 108 H 98-107 MMOL/L Carbon Dioxide Level 23 21-32 MMOL/L Anion Gap 11 5-14 MMOL/L Blood Urea Nitrogen 17 7-18 MG/DL Creatinine 1.23 0.60-1.30 MG/DL Estimat Glomerular Filtration Rate 41 BUN/Creatinine Ratio 14 Glucose Level 105 70-105 MG/DL Calcium Level 10.6 H 8.5-10.1 MG/DL Total Bilirubin 0.4 0.1-1.0 MG/DL Aspartate Amino Transf (AST/SGOT) 25 5-34 U/L Alanine Aminotransferase (ALT/SGPT) 13 0-55 U/L Alkaline Phosphatase 116 40-136 U/L Total Protein 8.7 H 6.4-8.2 GM/DL Albumin 4.4 3.2-4.5 GM/DL TSH [place] Testing 1.82 0.35-4.94 UIU/ML Lactic Acid Level 0.73 0.50-2.00 MMOL/L Micro Results Microbiology 06/03/18 Urine Culture - Preliminary, Resulted Sent To [facility] My Orders Orders - SANDER RASHID MD Ct Head/Cervical Spine Wo (06/03/18 12:21) Pelvis With Left Hip 2-3 Views (06/03/18 12:21) Elbow, Left, 3 Views (06/03/18 12:52) Cbc With Automated Diff (06/03/18 15:27) Thyroid Analyzer (06/03/18 15:27) Comprehensive Metabolic Panel (06/03/18 15:27) Ua Culture If Indicated (06/03/18 15:27) Urine Culture (06/03/18 14:10) Lactic Acid Analyzer (06/03/18 15:54) Blood Culture (06/03/18 15:54) Ceftriaxone Injection (Rocephin Injectio (06/03/18 16:00) Medications Given in ED Current Medications Medications Dose Ordered Sig/Janiya Route Start Time Stop Time Status Last Admin Dose Admin Ceftriaxone Sodium 1000 mg/ Sodium Chloride 50 ml @ 100 mls/hr ONCE ONCE IV 06/03/18 16:00 06/03/18 16:29 DC 06/03/18 16:43 100 MLS/HR Vital Signs/I&O 06/03/18 06/03/18 12:15 12:15 Temp 97.3 97.3 Pulse 60 60 Resp 15 15 B/P (MAP) 150/76 (100) 150/76 (100) Pulse Ox 98 98 O2 Delivery Room Air Room Air Progress Progress Note : Progress Note Seen and evaluated. CT head and neck ordered. X-ray left hip and pelvis ordered. Monitor patient. 1252: Patient complaining of left elbow pain. Does have small amount of bruising to the lateral aspect so we will add x-ray for that as well. 1530: Patient has had multiple urinations and she reports overactive bladder but we will check UA. We did attempt to stand her and she is too dizzy to stand on her own feet without significant assistance. Patient is not safe to go home and I do believe she has head injury with concussion findings with the persistent dizziness. I did discuss the case with Dr. Erika Palencia patient for admission to the trauma service due to fall and head injury on [facility]. 153 I discussed the case with Dr. Girard and she will see the patient in consult. Admit, observation status. Patient agrees with plan. 1550 : UA noted question urinary tract infection. We will get blood cultures and lactic acid and initiate Rocephin afterwards. Dr. Girard updated. Diagnostic Imaging Diagonstic Imaging: Xray Plain Films/CT/US/NM/MRI: elbow Comments VIA [facility], [facility]. [place], [place] NAME: BERTHA HOWARD [facility] REC#: [id number] PT STATUS: REG ER : 1930 PHYSICIAN: SANDER RASHID MD ADMIT DATE: 06/03/18/ER Draft Date of Exam:06/03/18 ELBOW, LEFT, 3 VIEWS INDICATION: Fall with left elbow pain. AP, oblique, and lateral views of left elbow are obtained. No fracture or acute bony abnormality is seen. IMPRESSION: Negative left elbow. Dictated on workstation # [id number] Dict: 06/03/18 1313 Trans: 06/03/18 1315 [facility] [id number] Interpreted by: TALYA LIRA MD Electronically signed by: Diagonstic Imaging: CT Plain Films/CT/US/NM/MRI: c-spine, head Comments PHYSICIAN: SANDER RASHID MD ADMIT DATE: 06/03/18/ER Draft Date of Exam:06/03/18 CT HEAD/CERVICAL SPINE WO PROCEDURE: CT head and CT cervical spine without contrast. TECHNIQUE: Multiple contiguous axial images were obtained through the brain and cervical spine without the use of intravenous contrast. Sagittal and coronal reformations through the cervical spine were then performed. INDICATION: Head injury with pain. COMPARISON: Head CT compared to 10/23/2016. FINDINGS: Substantial symmetrical periventricular white matter hypodensities, most suggestive of chronic small vessel disease, this appears unchanged. 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 No hemorrhage. No acute extra-axial fluid collection. No edema. No mass or mass effect. Orbits, sinuses, and calvarium appeared nonacute. CT cervical spine: Body heights are maintained. No acute or suspicious endplate irregularity. The spinal canal patent. There are degenerative changes to the cervical facets without facet joint widening, perching, or dislocation. No cervical fracture or paravertebral hemorrhage. There are vascular calcifications of the carotids, chronic. The bony skull base appeared intact. There is no mastoid effusion and the middle ear cavities are clear. IMPRESSION: 1. CT head: Chronic senescent changes. There is chronic white matter disease and old ischemic sequelae, stable. No hemorrhage, fracture, or acute finding. 2. CT cervical spine: Degenerative changes without fracture, stenosis, or traumatic malalignment. Dictated on workstation # [id number] Dict: 06/03/18 1315 Trans: 06/03/18 1325 [id number] Interpreted by: PHILIPP JONES Electronically signed by: Diagonstic Imaging: Xray Plain Films/CT/US/NM/MRI: pelvis, hip Comments VIA [facility]. [place], [place] NAME: BERTHA HOWARD [facility] REC#: [id number] PT STATUS: REG ER : 1930 PHYSICIAN: SANDER RASHID MD ADMIT DATE: 06/03/18/ER Draft Date of Exam:06/03/18 PELVIS WITH LEFT HIP 2-3 VIEWS INDICATION: Fall with left hip pain. TECHNIQUE: An AP pelvis and AP and oblique views of the left hip were obtained. FINDINGS: No fracture or acute bony abnormality is seen. A stimulator device over the right hemipelvis is noted. IMPRESSION: Negative pelvis and left hip. Dictated on workstation # [id number] Dict: 06/03/18 1314 Trans: 06/03/18 1317 [id number] Interpreted by: TALYA LIRA MD Electronically signed by: Departure Communication (Admissions) Time/Spoke to Admitting Phy: 15:30 Time/Spoke to Consulting Phy: 15:33 Impression Primary Impression: Head injury, closed, with concussion Qualified Codes: S06.0X0A - Concussion without loss of consciousness, initial encounter Additional Impressions: Dizziness UTI (urinary tract infection) Qualified Codes: N30.00 - Acute cystitis without hematuria Disposition: ADMITTED INPATIENT Condition: Stable Admissions Decision to Admit Reason: Admit from ER (Trauma) Decision to Admit/Date: Jun 03, 2018 Time/Decision to Admit Time: 15:30 Departure-Patient Inst. Referrals: NALINI GIRARD DO (PCP/Family) Primary Care Physician SANDER RASHID MD Jun 03, 2018 12:34
--- NOTE | 2018-06-03 13:15 | Diagnostic Imaging Report ---
INDICATION: Fall with left elbow pain. AP, oblique, and lateral views of left elbow are obtained. No fracture or acute bony abnormality is seen. IMPRESSION: Negative left elbow. Dictated by: Dictated on workstation # [id number]
--- NOTE | 2018-06-03 13:18 | Diagnostic Imaging Report ---
INDICATION: Fall with left hip pain. TECHNIQUE: An AP pelvis and AP and oblique views of the left hip were obtained. FINDINGS: No fracture or acute bony abnormality is seen. A stimulator device over the right hemipelvis is noted. IMPRESSION: Negative pelvis and left hip. Dictated by: Dictated on workstation # [id number]
--- NOTE | 2018-06-03 13:26 | Diagnostic Imaging Report ---
PROCEDURE: CT head and CT cervical spine without contrast. TECHNIQUE: Multiple contiguous axial images were obtained through the brain and cervical spine without the use of intravenous contrast. Sagittal and coronal reformations through the cervical spine were then performed. INDICATION: Head injury with pain. COMPARISON: Head CT compared to 10/23/2016. FINDINGS: Substantial symmetrical periventricular white matter hypodensities, most suggestive of chronic small vessel disease, this appears unchanged. 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 No hemorrhage. No acute extra-axial fluid collection. No edema. No mass or mass effect. Orbits, sinuses, and calvarium appeared nonacute. CT cervical spine: Body heights are maintained. No acute or suspicious endplate irregularity. The spinal canal patent. There are degenerative changes to the cervical facets without facet joint widening, perching, or dislocation. No cervical fracture or paravertebral hemorrhage. There are vascular calcifications of the carotids, chronic. The bony skull base appeared intact. There is no mastoid effusion and the middle ear cavities are clear. IMPRESSION: 1. CT head: Chronic senescent changes. There is chronic white matter disease and old ischemic sequelae, stable. No hemorrhage, fracture, or acute finding. 2. CT cervical spine: Degenerative changes without fracture, stenosis, or traumatic malalignment. Dictated by: Dictated on workstation # [id number]
[2018-06-03 15:35] LABS: BILIRUBIN,URINE NEGATIVE (NEGATIVE); CLARITY,URINE CLEAR; COLOR,URINE YELLOW; GLUCOSE, URINE (UA) NEGATIVE (NEGATIVE); KETONES,URINE NEGATIVE (NEGATIVE); LEUKOCYTE ESTERASE ,URINE 3+ (NEGATIVE); NITRITE,URINE NEGATIVE (NEGATIVE); PH,URINE 7 (5-9); PROTEIN,URINE NEGATIVE (NEGATIVE); UROBILINOGEN,URINE NORMAL (NORMAL)
[2018-06-03 15:36] LABS: BASOPHILS % (AUTO) 0 % (0-10); EOSINOPHILS # (AUTO) 0.1 10^3/uL (0.0-0.3); EOSINOPHILS % (AUTO) 1 % (0-10); HEMATOCRIT 42 % (35-52); HEMOGLOBIN 13.9 G/DL (11.5-16.0); LYMPHOCYTES # (AUTO) 1.2 X 10^3 (1.0-4.0); LYMPHOCYTES % (AUTO) 12 % (12-44); MEAN CORPUSCULAR HEMOGLOBIN 31 PG (25-34); MEAN CORPUSCULAR HGB CONC 33 G/DL (32-36); MEAN CORPUSCULAR VOLUME 93 FL (80-99); MEAN PLATELET VOLUME 9.9 FL (7.4-10.4); MONOCYTES # (AUTO) 0.5 X 10^3 (0.0-1.0); MONOCYTES % (AUTO) 5 % (0-12); NEUTROPHILS # (AUTO) 8.4 X 10^3 (1.8-7.8); NEUTROPHILS % (AUTO) 82 % (42-75); PLATELET COUNT 288 10^3/uL (130-400); RED BLOOD COUNT 4.49 10^6/uL (4.35-5.85); RED CELL DISTRIBUTION WIDTH 14.2 % (10.0-14.5); WHITE BLOOD COUNT 10.2 10^3/uL (4.3-11.0)
[2018-06-03 15:43] LABS: BACTERIA,URINE TRACE /HPF; RENAL EPITHELIAL CELLS,URINE 0-2 /HPF
[2018-06-03 15:59] LABS: ALBUMIN 4.4 GM/DL (3.2-4.5); BILIRUBIN,TOTAL 0.4 MG/DL (0.1-1.0); CALCIUM 10.6 MG/DL (8.5-10.1); CREATININE SERUM 1.23 MG/DL (0.60-1.30); POTASSIUM 4.5 MMOL/L (3.6-5.0); TOTAL PROTEIN 8.7 GM/DL (6.4-8.2)
[2018-06-03] MEDS ORDERED: cefTRIAXone INJECTION 1,000 MG in NS (IVPB) 50 ML IV ONE (16:00)
[2018-06-03 16:19] LABS: TSH (THYROID ANALYZER) 1.82 UIU/ML (0.35-4.94)
[2018-06-03 17:00] VITALS: BP 144/80
[2018-06-03] MEDS ORDERED: ACETAMINOPHEN 325 MG TABLET PO PRN (17:45)
[2018-06-03] MEDS ORDERED: CATHETER FLUSH 10 ML SYR IV PRN (17:45)
--- NOTE | 2018-06-03 19:10 | History & Physical-Surgical ---
History of Present Illness History of Present Illness Reason for visit/HPI CC: Fall Patient is an 87 year old female who got out of car and fell backwards. Patient landed on her left hip and hit the left back side of her head. She denies any loss of consciousness. She has some pain in the left hip, left elbow and back of head. Her GCS 15 . SHe had a ct scan head and cspine that does not show any acute injury. Left elbow x ray no and pelvis x ray no abnormality. Patient still having some dizziness when standing. She is on Eliquis. Denies fever sweats chills shortness of breath, chest pain abdominal pain. Date of Admission Jun 03, 2018 at 16:25 Date Seen by Provider: Jun 03, 2018 Time Seen by Provider: 17:33 I consulted on this patient on 06/03/18 18:56 Attending Physician Jessica Girard DO Admitting Physician Jessica Girard DO Consult Allergies and Home Medications Allergies Coded Allergies: No Known Drug Allergies (Unverified , 11/11/16) Home Medications Apixaban 5 Mg Tablet, 5 MG PO BID, (Reported) Aspirin 81 Mg Tablet.dr, 81 MG PO DAILY, (Reported) Atorvastatin Calcium 10 Mg Tablet, 10 MG PO MON, WED, SAT, (Reported) Calcium Carbonate/Vitamin D3 1 Each Tablet, 1 TAB PO BID, (Reported) Diltiazem HCl 300 Mg Cap.er.24h, 300 MG PO DAILY Prescribed by: SYDNIE TOMLIN on 11/12/16 1155 Fish Oil/Dha/Epa 1 Each Capsule, 1,200 MG PO BID, (Reported) Levothyroxine Sodium 50 Mcg Tablet, 50 MCG PO DAILY, (Reported) Metoprolol Succinate 25 Mg Tab.er.24h, 25 MG PO DAILY, (Reported) Omeprazole 20 Mg Capsule.dr, 20 MG PO DAILY, (Reported) Vit A/Vit C/Vit E/Zinc/Copper 1 Each Tablet, 1 TAB PO DAILY, (Reported) [Biotin 5000MCG] , 5,000 MCG PO DAILY, (Reported) Patient Home Medication List Home Medication List Reviewed: Yes Past Siqkera-Okmunb-Eyyzjh Hx Patient Social History Alcohol Use: Denies Use Recreational Drug Use: No Smoking Status: Never a Smoker 2nd Hand Smoke Exposure: No Recent Foreign Travel: No Contact w/Someone Who Travel: No Recent Infectious Disease Expo: No Recent Hopitalizations: No Physical Abuse Screen: No Sexual Abuse: No Immunizations Up To Date Tetanus Booster (TDap): Unknown Seasonal Allergies Seasonal Allergies: No Surgeries History of Surgeries: Yes Surgeries: Appendectomy, Bladder Surgery, Cardiac, Eye Surgery, Gallbladder, Hysterectomy, Oophorectomy, Rectal Respiratory History of Respiratory Disorde: No Cardiovascular History of Cardiac Disorders: Yes Cardiac Disorders: Atrial Fibrillation, Coronary Artery Disease, Heart Attack, High Cholesterol, Hypertension Neurological History of Neurological Disord: Yes Reproductive System Hx Reproductive Disorders: Yes Sexually Transmitted Disease: No HIV/AIDS: No Female Reproductive Disorders: Denies Genitourinary History of Genitourinary Disor: Yes (OVERACTIVE BLADDER) Gastrointestinal History of Gastrointestinal Di: No Musculoskeletal History of Musculoskeletal Dis: No Musculoskeletal Disorders: Arthritis Endocrine History of Endocrine Disorders: No Endocrine Disorders: Hypothyroidsim HEENT History of HEENT Disorders: Yes HEENT Disorders: Cataract Hearing Impairment: Hard of Hearing, Hearing Aide Left Cancer History of Cancer: No Psychosocial History of Psychiatric Problem: No Integumentary History of Skin or Integumenta: No Blood Transfusions History of Blood Disorders: No Adverse Reaction to a Blood Tr: No Family Medical History Significant Family History: No Pertinent Family Hx Constitutional: dizziness EENTM: no symptoms reported Respiratory: no symptoms reported Cardiovascular: no symptoms reported Gastrointestinal: no symptoms reported Genitourinary: no symptoms reported Musculoskeletal: see HPI Skin: no symptoms reported Psychiatric/Neurological: No Symptoms Reported Physical Exam Vital Signs Vital Signs - First Documented Capillary Refill : Less Than 3 Seconds Height, Weight, BMI Height: 5'0" Weight: 112lbs. 0.0oz. 50.649221ls; 21.5 BMI Method:Stated General Appearance: No Apparent Distress HEENT: PERRL/EOMI, Normal ENT Inspection (swelling posterior scalp) Neck: Non Tender, Supple Respiratory: Chest Non Tender, Lungs Clear, No Accessory Muscle Use, No Respiratory Distress Cardiovascular: Regular Rate, Rhythm Gastrointestinal: Non Tender, Soft Back: Normal Inspection, No Vertebral Tenderness Extremity: No Calf Tenderness, Other (left elbow hematoma) Neurologic/Psychiatric: Alert, Oriented x3, No Motor/Sensory Deficits, Normal Mood/Affect, sewing demonstrator II-XII Norm as Tested Skin: Normal Color, Warm/Dry Lymphatic: No Adenopathy Data Review Labs Laboratory Tests 06/03/18 14:10: Urine Color YELLOW, Urine Clarity CLEAR, Urine pH 7, Urine Specific [place] 1.005L, Urine Protein NEGATIVE, Urine Glucose (UA) NEGATIVE, Urine Ketones NEGATIVE, Urine Nitrite NEGATIVE, Urine Bilirubin NEGATIVE, Urine Urobilinogen NORMAL, Urine Leukocyte Esterase 3+H, Urine RBC (Auto) NEGATIVE, Urine RBC NONE , Urine WBC 5-10H, Urine Squamous Epithelial Cells 2-5, Urine Renal Epithelial Cells 0-2, Urine Crystals NONE, Urine Bacteria TRACE, Urine Casts NONE, Urine Mucus NEGATIVE, Urine Culture Indicated YES 06/03/18 15:25: White Blood Count 10.2, Red Blood Count 4.49, Hemoglobin 13.9, Hematocrit 42, Mean Corpuscular Volume 93, Mean Corpuscular Hemoglobin 31, Mean Corpuscular Hemoglobin Concent 33, Red Cell Distribution Width 14.2, Platelet Count 288, Mean Platelet Volume 9.9, Neutrophils (%) (Auto) 82H, Lymphocytes (%) (Auto) 12 , Monocytes (%) (Auto) 5, Eosinophils (%) (Auto) 1, Basophils (%) (Auto) 0, Neutrophils # (Auto) 8.4H, Lymphocytes # (Auto) 1.2, Monocytes # (Auto) 0.5, Eosinophils # (Auto) 0.1, Basophils # (Auto) 0.0, Sodium Level 142, Potassium Level 4.5, Chloride Level 108H, Carbon Dioxide Level 23, Anion Gap 11, Blood Urea Nitrogen 17, Creatinine 1.23, Estimat Glomerular Filtration Rate 41, BUN/ Creatinine Ratio 14, Glucose Level 105, Calcium Level 10.6H, Total Bilirubin 0.4 , Aspartate Amino Transf (AST/SGOT) 25, Alanine Aminotransferase (ALT/SGPT) 13, Alkaline Phosphatase 116, Total Protein 8.7H, Albumin 4.4, TSH [place] Testing 1.82 06/03/18 16:00: Lactic Acid Level 0.73 Microbiology 06/03/18 Urine Culture - Preliminary, Resulted Sent To [facility] Assessment/Plan Assessment/Plan Admission Diagonsis Fall from standing traumatic head injury Fall on anticoagulant Patient with traumatic head injury and with dizziness . Patient will be admitted for observation. Neurochecks Repeat ct head in am since Patient on Eliquis in case of delayed bleed. Dr. Girard consulted fro medical management. Admission Status: Observation Assessment/Plan Fall from standing traumatic head injury Fall on anticoagulant Patient with traumatic head injury and with dizziness . Patient will be admitted for observation. Neurochecks Repeat ct head in am since Patient on Eliquis in case of delayed bleed. Dr. Girard consulted fro medical management. Clinical Quality Measures DVT/VTE Risk/Contraindication: Risk Factor Score Per Nursin RFS Level Per Nursing on Admit: 4+=Very High DEANNA PACE DO Jun 03, 2018 19:10
[2018-06-03 19:35] VITALS: BP 178/72
--- NOTE | 2018-06-03 19:57 | Consultation ---
History of Present Illness History of Present Illness Patient Consulted On(lynda/time) 06/03/18 19:52 Date Seen by Provider: Jun 03, 2018 Time Seen by Provider: 19:52 History of Present Illness This is an 87 year old female who was getting out of her car at a local laboratory when she fell backwards striking the back of her head, her left elbow and left hip. She was brought to the emergency room where she was found to have a posterior head contusion, a left hip contusion and left elbow contusion. Her CT head was negative for acute bleed and her left elbow, left hip and pelvis x-rays showed no fracture. She was having ongoing dizziness therefore she was admitted for observation under trauma and I am asked to consult for medical management. She currently complains of headache in the area of her contusion and dizziness when she turns her head. Allergies and Home Medications Allergies Coded Allergies: No Known Drug Allergies (Unverified , 11/11/16) Home Medications Apixaban 5 Mg Tablet, 5 MG PO BID, (Reported) Aspirin 81 Mg Tablet.dr, 81 MG PO DAILY, (Reported) Atorvastatin Calcium 10 Mg Tablet, 10 MG PO MON, WED, SAT, (Reported) Calcium Carbonate/Vitamin D3 1 Each Tablet, 1 TAB PO BID, (Reported) Diltiazem HCl 300 Mg Cap.er.24h, 300 MG PO DAILY Prescribed by: SYDNIE TOMLIN on 11/12/16 1155 Fish Oil/Dha/Epa 1 Each Capsule, 1,200 MG PO BID, (Reported) Levothyroxine Sodium 50 Mcg Tablet, 50 MCG PO DAILY, (Reported) Metoprolol Succinate 25 Mg Tab.er.24h, 25 MG PO DAILY, (Reported) Omeprazole 20 Mg Capsule.dr, 20 MG PO DAILY, (Reported) Vit A/Vit C/Vit E/Zinc/Copper 1 Each Tablet, 1 TAB PO DAILY, (Reported) [Biotin 5000MCG] , 5,000 MCG PO DAILY, (Reported) Patient Home Medication List Home Medication List Reviewed: Yes Past Efhuqbm-Llseai-Tqflct Hx Past Med/Social Hx: Reviewed Nursing Past Med/Soc Hx Patient Social History Alcohol Use: Denies Use Recreational Drug Use: No Smoking Status: Former Smoker 2nd Hand Smoke Exposure: No Recent Foreign Travel: No Contact w/Someone Who Travel: No Recent Infectious Disease Expo: No Recent Hopitalizations: No Physical Abuse: No Sexual Abuse: No Immunizations Up To Date Tetanus Booster (TDap): Unknown Seasonal Allergies Seasonal Allergies: No Past Medical History Surgeries: Yes Appendectomy, Bladder Surgery, Cardiac, Eye Surgery, Gallbladder, Hysterectomy, Oophorectomy, Rectal Respiratory: No Cardiac: Yes Atrial Fibrillation, Coronary Artery Disease, Heart Attack, High Cholesterol, Hypertension Neurological: Yes Reproductive Disorders: Yes Female Reproductive Disorders: Denies Sexually Transmitted Disease: No HIV/AIDS: No Genitourinary: Yes (OVERACTIVE BLADDER) Gastrointestinal: No Musculoskeletal: No Arthritis Endocrine: No Hypothyroidsim HEENT: Yes Cataract Hearing Impairment: Hard of Hearing, Hearing Aide Left Cancer: No Psychosocial: No Nursing Suicide Risk Score: 0 Integumentary: No Blood Disorders: No Adverse Reaction/Blood Tranf: No Family Medical History Reviewed Nursing Family Hx No Pertinent Family Hx Review of Systems-General Constitutional: weakness EENTM: No see HPI, No no symptoms reported, No ear discharge, No hearing loss, No ear pain, No blurred vision, No double vision, No eye pain, No tearing, No vision loss, No dental problems, No hoarseness, No mouth pain, No mouth swelling , No epistaxis, No nose congestion, No nose pain, No throat pain, No throat swelling, No other Respiratory: No no symptoms reported, No see HPI, No cough, No dyspnea on exertion, No hemoptysis, No orthopnea, No phlegm, No short of breath, No stridor , No wheezing, No other Cardiovascular: No no symptoms reported, No see HPI, No chest pain, No edema, No Hx of Intervention, No palpitations, No syncope, No vascular heart diseas, No other Gastrointestinal: No RUQ, No LUQ, No RLQ, No LLQ, No no symptoms reported, No see HPI, No abdominal pain, No constipation, No diarrhea, No dysphagia, No hematemesis, No heartburn, No jaundice, No loss of appetite, No melena, No nausea, No vomiting, No other Genitourinary: frequency Musculoskeletal: joint pain (left elbow and left hip) Skin: other (head contusion) Psychiatric/Neurological: Headache, Weakness, Other (dizziness) Physical Exam-General Problems Physical Exam Vital Signs Vital Signs - First Documented Capillary Refill : Less Than 3 Seconds General Appearance: WD/WN, no apparent distress HEENT: other (contusion to left posterior scalp) Neck: supple Respiratory: lungs clear Cardiovascular: regular rate, rhythm, gallop/S4 Gastrointestinal: normal bowel sounds, non tender, soft Rectal: deferred Back: no CVA tenderness Extremities: non-tender, no pedal edema, no calf tenderness Neurologic/Psychiatric: alert, normal mood/affect, oriented x 3, other ( nystagmus with EOMs) Skin: ecchymosis (left elbow and hip) Comments Laboratory Tests 06/03/18 14:10: Urine Color YELLOW, Urine Clarity CLEAR, Urine pH 7, Urine Specific [place] 1.005L, Urine Protein NEGATIVE, Urine Glucose (UA) NEGATIVE, Urine Ketones NEGATIVE, Urine Nitrite NEGATIVE, Urine Bilirubin NEGATIVE, Urine Urobilinogen NORMAL, Urine Leukocyte Esterase 3+H, Urine RBC (Auto) NEGATIVE, Urine RBC NONE , Urine WBC 5-10H, Urine Squamous Epithelial Cells 2-5, Urine Renal Epithelial Cells 0-2, Urine Crystals NONE, Urine Bacteria TRACE, Urine Casts NONE, Urine Mucus NEGATIVE, Urine Culture Indicated YES 06/03/18 15:25: White Blood Count 10.2, Red Blood Count 4.49, Hemoglobin 13.9, Hematocrit 42, Mean Corpuscular Volume 93, Mean Corpuscular Hemoglobin 31, Mean Corpuscular Hemoglobin Concent 33, Red Cell Distribution Width 14.2, Platelet Count 288, Mean Platelet Volume 9.9, Neutrophils (%) (Auto) 82H, Lymphocytes (%) (Auto) 12 , Monocytes (%) (Auto) 5, Eosinophils (%) (Auto) 1, Basophils (%) (Auto) 0, Neutrophils # (Auto) 8.4H, Lymphocytes # (Auto) 1.2, Monocytes # (Auto) 0.5, Eosinophils # (Auto) 0.1, Basophils # (Auto) 0.0, Sodium Level 142, Potassium Level 4.5, Chloride Level 108H, Carbon Dioxide Level 23, Anion Gap 11, Blood Urea Nitrogen 17, Creatinine 1.23, Estimat Glomerular Filtration Rate 41, BUN/ Creatinine Ratio 14, Glucose Level 105, Calcium Level 10.6H, Total Bilirubin 0.4 , Aspartate Amino Transf (AST/SGOT) 25, Alanine Aminotransferase (ALT/SGPT) 13, Alkaline Phosphatase 116, Total Protein 8.7H, Albumin 4.4, TSH [place] Testing 1.82 06/03/18 16:00: Lactic Acid Level 0.73 Microbiology 06/03/18 Urine Culture - Preliminary, Resulted Sent To [facility] Assessment/Plan Assessment/Plan Admission Diagnosis/Plan 1. Fall with Head Injury and left elbow and left hip contusion--patient will undergo neurochecks and repeat CT scan of head in AM due to being on eliquis 2. Hypertension--toprol and clonidine now 3. Vertigo with nystagmus--meclizine now 4. UTI--started on rocephin Admission Status: Observation Clinical Quality Measures DVT/VTE Risk/Contraindication: Risk Factor Score Per Nursin RFS Level Per Nursing on Admit: 4+=Very High NALINI ZARCO DO Jun 03, 2018 19:57
[2018-06-03] MEDS ORDERED: ONDANSETRON 4 MG/2 ML (SDV) Z0FRAN IVP PRN (20:00)
[2018-06-03] MEDS ORDERED: cloNIDine 0.1 MG (CATAPRES) TAB PO NR (20:00)
[2018-06-03] MEDS ORDERED: MECLIZINE 25 MG (ANTIVERT) TAB PO NR (20:00)
[2018-06-03 21:04] VITALS: BP 170/70
[2018-06-03] MEDS: CATHETER FLUSH 10 ML SYR IV SCH (21:09)
[2018-06-03 23:35] VITALS: BP 124/65
[2018-06-04 03:25] VITALS: BP 118/61
[2018-06-04] MEDS: CATHETER FLUSH 10 ML SYR IV SCH ×3 (06:08→20:16)
[2018-06-04 06:23] LABS: BASOPHILS % (AUTO) 0 % (0-10); EOSINOPHILS # (AUTO) 0.1 10^3/uL (0.0-0.3); EOSINOPHILS % (AUTO) 2 % (0-10); HEMATOCRIT 38 % (35-52); HEMOGLOBIN 12.3 G/DL (11.5-16.0); LYMPHOCYTES # (AUTO) 1.6 X 10^3 (1.0-4.0); LYMPHOCYTES % (AUTO) 27 % (12-44); MEAN CORPUSCULAR HEMOGLOBIN 30 PG (25-34); MEAN CORPUSCULAR HGB CONC 33 G/DL (32-36); MEAN CORPUSCULAR VOLUME 93 FL (80-99); MEAN PLATELET VOLUME 9.8 FL (7.4-10.4); MONOCYTES # (AUTO) 0.6 X 10^3 (0.0-1.0); MONOCYTES % (AUTO) 10 % (0-12); NEUTROPHILS # (AUTO) 3.6 X 10^3 (1.8-7.8); NEUTROPHILS % (AUTO) 61 % (42-75); PLATELET COUNT 268 10^3/uL (130-400); RED BLOOD COUNT 4.04 10^6/uL (4.35-5.85); RED CELL DISTRIBUTION WIDTH 14.5 % (10.0-14.5); WHITE BLOOD COUNT 5.9 10^3/uL (4.3-11.0)
[2018-06-04 06:44] LABS: CALCIUM 9.6 MG/DL (8.5-10.1); CREATININE SERUM 1.15 MG/DL (0.60-1.30); POTASSIUM 3.9 MMOL/L (3.6-5.0)
[2018-06-04 08:00] VITALS: BP 136/60
[2018-06-04] MEDS: cefTRIAXone 1 GM/NS 50 ML IVPB IV SCH ×2 (08:26)
[2018-06-04] MEDS ORDERED: ATOR10TA66 PO (08:44)
[2018-06-04] MEDS ORDERED: DILT300C26 PO (08:44)
[2018-06-04] MEDS ORDERED: OMEP20CA12 PO (08:44)
[2018-06-04] MEDS ORDERED: AMIT25TA9 PO (08:44)
[2018-06-04] MEDS ORDERED: APIX5TAB PO (08:55)
[2018-06-04] MEDS ORDERED: LEVO50TA6 PO (08:55)
[2018-06-04] MEDS ORDERED: CALC-9 PO (08:55)
[2018-06-04] MEDS ORDERED: VIT1CAPS9 PO (08:55)
[2018-06-04] MEDS ORDERED: OMEG1CAP24 PO (08:55)
--- NOTE | 2018-06-04 08:57 | Diagnostic Imaging Report ---
PROCEDURE: CT head without contrast. TECHNIQUE: Multiple contiguous axial images were obtained through the brain without the use of intravenous contrast. INDICATION: Fell, headache. FINDINGS: The recent exam of 06/03/2018 noted senescent changes involving the brain but failed to show any sign of an acute intracranial abnormality. On this exam, there is still no mass, shift of midline or hemorrhage to suggest an acute abnormality. The ventricles are not abnormally dilated and stable in size when compared to the prior exam. As on the previous study, there are diffuse areas of low density in the periventricular white matter bilaterally. These findings are probably secondary to encephalomalacia from microvascular ischemia. There is also some diminished density within the octaviano on the left. This too may be a sequela of a prior infarct. The cortical atrophy seen on the prior study is again visualized and no different. The bone windows show no sign of a fracture or destructive lesion. There is soft tissue edema along the posterior aspect of the left parietal bone near the vertex of the skull. The orbits are symmetrical and within normal limits. The sinuses are generally clear. IMPRESSION: 1. There is still no evidence for an acute intracranial abnormality. 2. If clinical concern regarding an underlying abnormality persists, then MRI would be recommended for further study. Dictated by: Dictated on workstation # [id number]
[2018-06-04 12:00] VITALS: BP 128/56
--- NOTE | 2018-06-04 12:10 | Occupational Therapy Eval ---
OT Evaluation-General/PLF Medical Diagnosis Admission Date Jun 03, 2018 at 16:25 Medical Diagnosis: Traumatic head injury Onset Date: Jun 03, 2018 Therapy Diagnosis Therapy Diagnosis: Weakness Height/Weight Height (Feet): 5 Height (Inches): 0.00 Weight (Pounds): 112 Weight (Ounces): 0.0 Precautions Precautions/Isolations: Fall Prevention, Standard Precautions Safety Interventions: Bed Exit Alarm Weight Bear Status Weight Bearing Restriction: Weight Bearing/Tolerated Referral Physician: Dr. James Referral Reason: Activity Tolerance, Self Care, Evaluation/Treatment, Strengthening/ROM Referral Comments Two orders from yesterday..... 1. Pt. on bedrest with bathroom privileges with assistance. 2. Pt. to ambulate TID. Will clarify orders. Medical History Additional Medical History Appendectomy, bladder surgery, hysterectomy Current History Pt. fell getting out of car. Hit left hip, left elbow, and head. No fx noted but pt. does get dizzy with movement. Reviewed History: Yes Social History Home: Apartment Current Living Status: Alone Entry Into Home: Level Entry ADL-Prior Level of Function ADL PLOF Comments Pt. states that she uses a walker, and is independent with all ADLs. DME/Equipment: Bath Chair, Shower DME/Equipment Comments Pt. has a walker. Drive Self: Yes OT Current Status Subjective Pt. reports stewart in left hip, but does not report pain level. Appearance Pt. has put her light on when OT enters room. Pt. is on bedpan and requesting to get off. Mental Status/Objective Patient Orientation: Person Pt. is distracted by her IV in left arm. Also states that her hearing aide is not working, therefore she is [place]. Current Glasses/Contacts: Yes Hearing Aids: Yes Upper Extremity ROM WFL ADL-Treatment Functional [place] Measure 0=Not Assessed/NA 4=Minimal Assistance 1=Total Assistance 5=Supervision or Setup 2=Maximal Assistance 6=Modified [place] 3=Moderate Assistance 7=Complete IndependenceIRFPAI Quality Coding Scale 6 Independent with activity with or without an assistive device 5 Patient requires set up or clean up by helper. Patient completes activity by themselves 4 Supervision or touching assist (CGA). Kemp provide cues , steadying assist 3 The helper provides less than half the effort to complete the activity 2 The helper provides more than half the effort to complete the activity 1 Dependent. The helper does all the effort to complete an activity 7 Patient refused to complete or attempt activity 9 The patient did not perform the activity before the current illness or injury 88 Not attempted due to Medical conditions or safety concerns Lower Body Dressing (FIM): 1 (Pt. attempts to doff left sock, but is unable to pull leg up to her or bend over to it.) Toileting (FIM): 1 (Pt. is on bed stewart. Does roll for OT to take off. However , is unable to pull up her pants. OT attempts to do this in bed, but pt. states that they "don't feel right." Agrees to transfer to side of bed so that OT can adjust underwear and pad.) Transfers (B, C, W/C) (FIM): 3 (Mod assist supine-sit and sit-stand. SBA sit- supine.) Other Treatments When pt. stood at bedside for OT to adjust underwear, pt. had great difficulty standing without mod assist. Does require multiple cues and demonstrates decreased balance. OT assisted pt. back to supine. Education OT Patient Education: Correct positioning, Modified ADL techniques, Progress toward Goal/Update tx plan, Purpose of tx/functional activities, Reviewed precautions, Rehab process, Transfer techniques Teaching Recipient: Patient Teaching Methods: Demonstration, Discussion Response to Teaching: Verbalize Understanding, Return Demonstration OT Short Term Goals Short Term Goals Time Frame: Jun 11, 2018 Eating(FIM): 5 Grooming(FIM): 5 Bathing(FIM): 4 Upper Body Dressing(FIM): 4 Lower Body Dressing(FIM): 4 Toileting(FIM): 4 Transfers (B,C,W/C) (FIM): 4 Toilet/Commode Transfer(FIM): 4 Additional Short Term Goals: 1-Demonstrate ADL Tasks, 2-Verbalize Understanding , 3-ImproveStrength/Frank 1=Demonstrate adherence to instructed precautions during ADL tasks. 2=Patient will verbalize/demonstrate understanding of assistive devices/ modifications for ADL. 3=Patient will improve strength/tolerance for activity to enable patient to perform ADL's. OT Food Service Order Clerk Goals Food Service Order Clerk Goals Time Frame: Jun 18, 2018 Eating (FIM): 6 Grooming(FIM): 6 Bathing(FIM): 5 Upper Body Dressing(FIM): 5 Lower Body Dressing(FIM): 5 Toileting(FIM): 6 Transfers (B,C,W/C) (FIM): 6 Toilet/Commode Transfer(FIM): 6 Shower Transfer(FIM): 5 Additional Goals: 1-Demonstrate ADL Tasks, 2-Verbalize Understanding, 3- ImproveStrength/Frank 1=Demonstrate adherence to instructed precautions during ADL tasks. 2=Patient will verbalize/demonstrate understanding of assistive devices/ modifications for ADL. 3=Patient will improve strength/tolerance for activity to enable patient to perform ADL's. OT Education/Plan Problem List/Assessment Assessment: Decreased Activ Tolerance, Decreased Safety Aware, Dependent Transfers, Impaired Bed Mobility, Impaired Cognition, Impaired Funct Balance, Impaired I ADL's, Impaired Self-Care Skills Bed alarm set after treatment. Discharge Recommendations Plan/Recommendations: Continue POC Therapy D/C Recommendations: 24 hr Supervision Comment Discharge location to be determined. Treatment Plan/Plan of Care Treatment,Training & Education: Yes Patient would benefit from OT for education, treatment and training to promote independence in ADL's, mobility, safety and/or upper extremity function for ADL' s. Plan of Care: ADL Retraining, Cognitive Retraining, Functional Mobility, UE Funct Exercise/Act Treatment Duration: Jun 18, 2018 Frequency: 5 times per week Estimated Hrs Per Day: .25 hour per day Agreement: Yes Rehab Potential: Fair Time/GCodes Start Time: 11:15 Stop Time: 11:40 Total Time Billed (hr/min): 25 Billed Treatment Time 1, EVH x 10minutes, ADL x 15minutes Selfcur- CM Selfgoal-CI G Codes Necessary: Yes MALINI MCKEE OT Jun 04, 2018 12:10
--- NOTE | 2018-06-04 12:45 | Progress Note (SOAP) ---
Subjective Date Seen by Provider: Jun 04, 2018 Time Seen by Provider: 12:42 Subjective/Events-last exam Fwup fall with head contusion, left elbow contusion and left hip contusion. Feels better but still gets dizzy with movement. Head not hurting as bad. Focused Exam Lactate Level 06/03/18 16:00: Lactic Acid Level 0.73 Objective Exam Vital Signs Date Time Temp Pulse Resp B/P (MAP) Pulse Ox O2 Delivery O2 Flow Rate FiO2 06/04/18 08:00 96 Room Air 06/04/18 08:00 97.2 60 18 136/60 (85) 95 Room Air 06/04/18 03:25 97.3 60 18 118/61 (80) 96 Room Air 06/03/18 23:35 97.5 63 18 124/65 (84) 95 Room Air 06/03/18 21:04 74 170/70 (103) 06/03/18 19:50 Room Air 06/03/18 19:35 98.7 73 18 178/72 (107) 97 Room Air 06/03/18 17:00 98.4 78 18 144/80 (101) 96 Room Air 06/03/18 16:55 98.7 67 18 163/76 (100) 97 Room Air I & O 06/04/18 07:00 Intake Total 320 ml Output Total 750 ml Balance -430 ml Capillary Refill : Less Than 3 Seconds General Appearance: No Apparent Distress Respiratory: Lungs Clear Cardiovascular: Regular Rate, Rhythm, Gallop/S4 Gastrointestinal: normal bowel sounds, non tender, soft Extremity: Non Tender, No Calf Tenderness, No Pedal Edema Neurologic/Psychiatric: Alert, Oriented x3 Skin: Ecchymosis (left elbow and left hip) Results Lab Laboratory Tests 06/03/18 14:10: Urine Color YELLOW, Urine Clarity CLEAR, Urine pH 7, Urine Specific [place] 1.005L, Urine Protein NEGATIVE, Urine Glucose (UA) NEGATIVE, Urine Ketones NEGATIVE, Urine Nitrite NEGATIVE, Urine Bilirubin NEGATIVE, Urine Urobilinogen NORMAL, Urine Leukocyte Esterase 3+H, Urine RBC (Auto) NEGATIVE, Urine RBC NONE , Urine WBC 5-10H, Urine Squamous Epithelial Cells 2-5, Urine Renal Epithelial Cells 0-2, Urine Crystals NONE, Urine Bacteria TRACE, Urine Casts NONE, Urine Mucus NEGATIVE, Urine Culture Indicated YES 06/03/18 15:25: White Blood Count 10.2, Red Blood Count 4.49, Hemoglobin 13.9, Hematocrit 42, Mean Corpuscular Volume 93, Mean Corpuscular Hemoglobin 31, Mean Corpuscular Hemoglobin Concent 33, Red Cell Distribution Width 14.2, Platelet Count 288, Mean Platelet Volume 9.9, Neutrophils (%) (Auto) 82H, Lymphocytes (%) (Auto) 12 , Monocytes (%) (Auto) 5, Eosinophils (%) (Auto) 1, Basophils (%) (Auto) 0, Neutrophils # (Auto) 8.4H, Lymphocytes # (Auto) 1.2, Monocytes # (Auto) 0.5, Eosinophils # (Auto) 0.1, Basophils # (Auto) 0.0, Sodium Level 142, Potassium Level 4.5, Chloride Level 108H, Carbon Dioxide Level 23, Anion Gap 11, Blood Urea Nitrogen 17, Creatinine 1.23, Estimat Glomerular Filtration Rate 41, BUN/ Creatinine Ratio 14, Glucose Level 105, Calcium Level 10.6H, Total Bilirubin 0.4 , Aspartate Amino Transf (AST/SGOT) 25, Alanine Aminotransferase (ALT/SGPT) 13, Alkaline Phosphatase 116, Total Protein 8.7H, Albumin 4.4, TSH [place] Testing 1.82 06/03/18 16:00: Lactic Acid Level 0.73 06/04/18 05:45: White Blood Count 5.9, Red Blood Count 4.04L, Hemoglobin 12.3, Hematocrit 38, Mean Corpuscular Volume 93, Mean Corpuscular Hemoglobin 30, Mean Corpuscular Hemoglobin Concent 33, Red Cell Distribution Width 14.5, Platelet Count 268, Mean Platelet Volume 9.8, Neutrophils (%) (Auto) 61, Lymphocytes (%) (Auto) 27, Monocytes (%) (Auto) 10, Eosinophils (%) (Auto) 2, Basophils (%) (Auto) 0, Neutrophils # (Auto) 3.6, Lymphocytes # (Auto) 1.6, Monocytes # (Auto) 0.6, Eosinophils # (Auto) 0.1, Basophils # (Auto) 0.0, Sodium Level 144, Potassium Level 3.9, Chloride Level 110H, Carbon Dioxide Level 27, Anion Gap 7, Blood Urea Nitrogen 18, Creatinine 1.15, Estimat Glomerular Filtration Rate 44, BUN/ Creatinine Ratio 16, Glucose Level 89, Calcium Level 9.6 Microbiology 06/03/18 Urine Culture - Final, Complete NO GROWTH Assessment/Plan Assessment/Plan Assess & Plan/Chief Complaint 1. Fall with Head Injury and left elbow and left hip contusion--repeat CT of head shows no evidence of bleed 2. Hypertension--resume home meds 3. Vertigo with nystagmus--up with PT to evaluate ambulation/dizziness, did discuss possible rehab eval 4. UTI--on [facility] Clinical Quality Measures DVT/VTE Risk/Contraindication: Risk Factor Score Per Nursin RFS Level Per Nursing on Admit: 4+=Very High NALINI ZARCO DO Jun 04, 2018 12:45
--- NOTE | 2018-06-04 15:14 | Physical Therapy Evaluation ---
PT Evaluation-General Medical Diagnosis Admission Date Jun 03, 2018 at 16:25 Medical Diagnosis: Traumatic head injury Onset Date: Jun 03, 2018 Therapy Diagnosis Therapy Diagnosis: weakness; abn gait Height/Weight Height (Feet): 5 Height (Inches): 0.00 Weight (Pounds): 112 Weight (Ounces): 0.0 Precautions Precautions/Isolations: Fall Prevention, Standard Precautions Referral Physician: Dr. James Reason for Referral: Evaluation/Treatment Medical History Pertinent Medical History: Atrial Fib, CAD, HTN, [place] Current History Pt was getting out of her car when she fell over backwards, hitting her head and sustaining a left hip and elbow contusion. She was transported to the hospital and also found to have an UTI> Reviewed History: Yes Social History Home: Apartment ([facility]) Current Living Status: Alone Entry Into Home: Level Entry Prior/Core FIM Prior Level of Function Functional [place] Measure 0=Not Assessed/NA 4=Minimal Assistance 1=Total Assistance 5=Supervision or Setup 2=Maximal Assistance 6=Modified [place] 3=Moderate Assistance 7=Complete [place] Bed Mobility: 6 Transfers (B,C,W/C) (FIM): 6 Gait: [address] community ambulator PT Evaluation-Current Subjective Agreeable to PT. Hopeful to return home soon. Daughter present and states she will be here until Saturday. Pt reports feeling dizzy with sitting EOB and standing. Reports it does clear somewhat after a few minutes. Pain Numeric Pain Scale: 5-Moderate Pain Location: Left Location Body Site: Hip Pain Description: Ache (sore) Pt/Family Goals Pt wants to return home alone when able. Objective Patient Orientation: Person, Place, Time, Situation Problem Solving: Good ROM/Strength ROM Lower Extremities wFL Strength Lower Extremities Grossly 4-/5 throughout Integumentary/Posture Integumentary Refer to nursing notes. Bowel Incontinence: No Bladder Incontinence: Yes Posture slight rounded shoulders but symmetrical Neuromuscular (Tone, Coordination, Reflexes) WFL Sensory Vision: Wears Glasses Hearing: Functional Hand Dominance: Right Sensation Right Lower Extremit: Intact Sensation Left Lower Extremity: Intact Transfers Functional [place] Measure 0=Not Assessed/NA 4=Minimal Assistance 1=Total Assistance 5=Supervision or Setup 2=Maximal Assistance 6=Modified [place] 3=Moderate Assistance 7=Complete [place] Transfers (B, C, W/C) (FIM): 4 Supine to/from Sit: 4 (skilled cues for sequencing. ) Sit to/from Stand: 4 upon initial standing, pt needs min assist for balance; she is retropulsive. Gait Mode of Locomotion: Walk Anticipated Mode of Locomotion: Walk Gait (FIM): 2 Distance (FIM): 1=up to 49 ft Distance: 25 ft Gait Level of Assist: 4 (min assist with gait for balance and safety) Gait Assistive Device: FWW Comments/Gait Description slow and unsteady, requires min assist to stay upright; tends to lean to the right as well; decreased step length and velocity Balance Sitting Static: Fair Sitting Dynamic: Fair Standing Static: Fair Standing Dynamic: Fair Treatment up in chair post treatment with needs met Assessment/Needs Pt presents post fall with contusion to head as well as left hip and elbow. She requires assist with all mobiolity and is unsafe to ambulate or transfer without assist and even needs assist to stay upright with gait. She will benefit from skilled PT services to work on functional strength and mobility as well as balance and safety to allow her to return home living by herself. She has good potential to make gains and is cooperative with therapy services. Rehab Potential: Good PT Short Term Goals Short Term Goals Transfers (B,C,W/C) (FIM): 4 PT [employer] Goals Fpc Goals PT Fpc Goals Time Frame: Jun 06, 2018 Transfers (B,C,W/C) (FIM): 5 Gait (FIM): 2 Gait distance (FIM): 8=806-65 ft Gait Assistive Device: FWW PT Plan Problem List Problem List: Activity Tolerance, Functional Strength, Safety, Balance, Gait, Transfer, Bed Mobility Treatment/Plan Treatment Plan: Continue Plan of Care Treatment Plan: Bed Mobility, Education, Functional Activity Frank, Functional Strength, Gait, Safety, Therapeutic Exercise, Other Treatment Duration: Jun 06, 2018 Frequency: 6 times per week Estimated Hrs Per Day: .5 hour per day Patient and/or Family Agrees t: Yes Safety Risks/Education Patient Education: Transfer Techniques Teaching Recipient: Patient Teaching Methods: Demonstration, Discussion Response to Teaching: Reinforcement Needed Discharge Recommendations Therapy D/C Recommendations: Acute Rehab Time/GCodes Time In: 1415 Time Out: 1435 Total Billed Treatment Time: 20 Total Billed Treatment visit EVM 20 GERARDO MILTON PT Jun 04, 2018 15:14
[2018-06-04 15:53] VITALS: BP 136/63
--- NOTE | 2018-06-04 16:48 | Progress Note ---
Subjective Date Seen by Provider: Jun 04, 2018 Time Seen by Provider: 08:25 Subjective/Events-last exam Patient doing well. She's having less pain in the head. She still having pretty significant dizziness when she attempts to get up. She has no new complaints. She had a repeat CT of the head this morning demonstrating no bleed. Patient denies any nausea vomiting fever sweats chills shortness of breath or chest pain. Focused Exam Lactate Level 06/03/18 16:00: Lactic Acid Level 0.73 Objective Exam Vital Signs Date Time Temp Pulse Resp B/P (MAP) Pulse Ox O2 Delivery O2 Flow Rate FiO2 06/04/18 15:53 97.9 70 16 136/63 (87) 98 Room Air 06/04/18 12:00 98.1 62 18 128/56 (80) 94 Room Air 06/04/18 08:00 96 Room Air 06/04/18 08:00 97.2 60 18 136/60 (85) 95 Room Air 06/04/18 03:25 97.3 60 18 118/61 (80) 96 Room Air 06/03/18 23:35 97.5 63 18 124/65 (84) 95 Room Air 06/03/18 21:04 74 170/70 (103) 06/03/18 19:50 Room Air 06/03/18 19:35 98.7 73 18 178/72 (107) 97 Room Air 06/03/18 17:00 98.4 78 18 144/80 (101) 96 Room Air 06/03/18 16:55 98.7 67 18 163/76 (100) 97 Room Air I & O 06/04/18 07:00 Intake Total 320 ml Output Total 750 ml Balance -430 ml Capillary Refill : Less Than 3 Seconds General Appearance: No Apparent Distress HEENT: PERRL/EOMI, Normal ENT Inspection (swelling posterior scalp) Neck: Non Tender, Supple Respiratory: Lungs Clear Cardiovascular: Regular Rate, Rhythm, Gallop/S4 Peripheral Pulses: 2+ Dorsalis Pedis (R), 2+ Left Dors-Pedis (L), 2+ Radial Pulses (R), 2+ Radial Pulses (L) Gastrointestinal: normal bowel sounds, non tender, soft Extremity: Non Tender, No Calf Tenderness, No Pedal Edema Neurologic/Psychiatric: Alert, Oriented x3 Skin: Ecchymosis (left elbow and left hip) Lymphatic: No Adenopathy Results Lab Laboratory Tests 06/04/18 05:45: White Blood Count 5.9, Red Blood Count 4.04L, Hemoglobin 12.3, Hematocrit 38, Mean Corpuscular Volume 93, Mean Corpuscular Hemoglobin 30, Mean Corpuscular Hemoglobin Concent 33, Red Cell Distribution Width 14.5, Platelet Count 268, Mean Platelet Volume 9.8, Neutrophils (%) (Auto) 61, Lymphocytes (%) (Auto) 27, Monocytes (%) (Auto) 10, Eosinophils (%) (Auto) 2, Basophils (%) (Auto) 0, Neutrophils # (Auto) 3.6, Lymphocytes # (Auto) 1.6, Monocytes # (Auto) 0.6, Eosinophils # (Auto) 0.1, Basophils # (Auto) 0.0, Sodium Level 144, Potassium Level 3.9, Chloride Level 110H, Carbon Dioxide Level 27, Anion Gap 7, Blood Urea Nitrogen 18, Creatinine 1.15, Estimat Glomerular Filtration Rate 44, BUN/ Creatinine Ratio 16, Glucose Level 89, Calcium Level 9.6 Microbiology 06/03/18 Urine Culture - Final, Complete NO GROWTH Assessment/Plan Assessment/Plan Assessment/Plan 87-year-old female with fall from standing. Having vertigo and contusions of the left elbow and left hip. Patient also with ureter tract infection she is currently on Rocephin. Patient's traumatic standpoint is doing well. She had a repeat CT of the head which did not demonstrate any acute bleed. Patient possible DC tomorrow to rehabilitation Clinical Quality Measures DVT/VTE Risk/Contraindication: Risk Factor Score Per Nursin RFS Level Per Nursing on Admit: 4+=Very High DEANNA PACE DO Jun 04, 2018 16:48
[2018-06-04] MEDS: APIXABAN 5 MG (ELIQUIS) TABLET PO SCH (20:16)
[2018-06-04 20:50] VITALS: BP 148/70
[2018-06-04] MEDS ORDERED: ATORVASTATIN 10 MG (LIPITOR) TABLET PO SCH (21:00)
[2018-06-05 00:28] VITALS: BP 163/88
[2018-06-05 04:00] VITALS: BP 169/74
[2018-06-05 05:12] VITALS: BP 169/74
[2018-06-05] MEDS: CATHETER FLUSH 10 ML SYR IV SCH (05:58)
[2018-06-05] MEDS ORDERED: LEVOTHYROXINE 50 MCG (LEVOTHROID) TAB PO SCH (06:30)
[2018-06-05] MEDS ORDERED: PANTOPRAZOLE 20 MG TABLET (PROTONIX) PO SCH (07:00)
[2018-06-05 08:00] VITALS: BP 142/65
--- NOTE | 2018-06-05 08:02 | Discharge Inst-Simple/Standard ---
Discharge Inst-Standard Patient Instructions/Follow Up Plan of Care/Instructions/FU: Patient being transferred to IRF. Patient to follow up with Dr. Girard after being discharged from rehab unit. Activity as Tolerated: Yes Discharge Diet: Regular Diet DEANNA PACE DO Jun 05, 2018 08:01
[2018-06-05] MEDS: APIXABAN 5 MG (ELIQUIS) TABLET PO SCH (08:07)
--- NOTE | 2018-06-05 08:07 | Progress Note ---
Subjective Date Seen by Provider: Jun 05, 2018 Time Seen by Provider: 08:03 Subjective/Events-last exam Patient states doing okay. Slightly less dizziness with movement. Patient having some pain, but seems to be improving. Denies n/v fever sweats chills shortness of breath or chest pain. Focused Exam Lactate Level 06/03/18 16:00: Lactic Acid Level 0.73 Objective Exam Vital Signs Date Time Temp Pulse Resp B/P (MAP) Pulse Ox O2 Delivery O2 Flow Rate FiO2 06/05/18 05:12 98.1 72 16 169/74 (105) 96 Room Air 06/05/18 04:00 98.1 72 16 169/74 (105) 96 Room Air 06/05/18 00:28 97.3 74 16 163/88 (113) 97 Room Air 06/04/18 20:50 97.8 96 16 148/70 (96) 95 Room Air 06/04/18 20:00 Room Air 06/04/18 15:53 97.9 70 16 136/63 (87) 98 Room Air 06/04/18 12:00 98.1 62 18 128/56 (80) 94 Room Air I & O 06/05/18 07:00 Intake Total 1330 ml Output Total 250 ml Balance 1080 ml Capillary Refill : Less Than 3 Seconds General Appearance: No Apparent Distress HEENT: PERRL/EOMI, Normal ENT Inspection (swelling posterior scalp) Neck: Non Tender, Supple Respiratory: Lungs Clear, No Accessory Muscle Use, No Respiratory Distress Cardiovascular: Regular Rate, Rhythm, Gallop/S4 Peripheral Pulses: 2+ Dorsalis Pedis (R), 2+ Left Dors-Pedis (L), 2+ Radial Pulses (R), 2+ Radial Pulses (L) Gastrointestinal: normal bowel sounds, non tender, soft Extremity: Non Tender, No Calf Tenderness, No Pedal Edema Neurologic/Psychiatric: Alert, Oriented x3 Skin: Ecchymosis (left elbow and left hip) Lymphatic: No Adenopathy Results Lab Microbiology 06/03/18 Blood Culture - Preliminary, Resulted No growth 06/03/18 Urine Culture - Final, Complete NO GROWTH Assessment/Plan Assessment/Plan Assessment/Plan 87-year-old female with fall from standing. Having vertigo and contusions of the left elbow and left hip. Patient also with urinary tract infection she was on Rocephin and culture no growth on urine. Patient's traumatic standpoint is doing well. She had a repeat CT of the head which did not demonstrate any acute bleed. Patient DC today to IRF. Patient agreeable at this time. Clinical Quality Measures DVT/VTE Risk/Contraindication: Risk Factor Score Per Nursin RFS Level Per Nursing on Admit: 4+=Very High DEANNA PACE DO Jun 05, 2018 08:07
[2018-06-05] MEDS: cefTRIAXone 1 GM/NS 50 ML IVPB IV SCH ×2 (08:09)
[2018-06-05] MEDS ORDERED: DILTIAZEM 300 MG (CARDIZEM CD) CAP PO SCH (09:00)
[2018-06-05] MEDS ORDERED: OMEPRAZOLE 20 MG (PriLOSEC) CAP NON-FORMULARY PO SCH (09:00)
[2018-06-05] MEDS ORDERED: NON-FORMULARY MEDICATION 1 EA EA (Diltiazem HCl (Cartia Xt) 300 MG) PO SCH (09:00)
--- NOTE | 2018-06-05 10:39 | DISCHARGE SUMMARY ---
DATE OF SERVICE: ADMITTING PHYSICIAN: Deanna James DO. CONSULTING PHYSICIAN: Jessica Girard DO. ADMITTING DIAGNOSES: Fall from standing, traumatic head injury on anticoagulant, vertigo,contusions left elbow and left him and UTI. DISCHARGE DIAGNOSES: Fall from standing, traumatic head injury on anticoagulant, vertigo, contusions left elbow and left hip and urinary tract infection. HOSPITAL COURSE: The patient is an 87-year-old female, who fell getting out of the car, landing on her left hip and elbow and hitting her left posterior head. The patient had a CT scan upon evaluation in the emergency department, which did not demonstrate any bleed. The patient was having significant dizziness when trying to ambulate. She is also on Eliquis. Therefore, the patient was placed in the hospital for observation. The patient had continued vertigo with trying to ambulate. This has improved with her hospital stay, but the patient has had this continued. She had a repeat CT of the head within 24 hours to reevaluate for any bleed, which was negative. The patient worked with physical therapy and we feel that she would benefit from inpatient rehabilitation to decrease the risk of her falling. The patient is in agreement with inpatient rehabilitation at this time. The patient will be transferred today to the inpatient rehabilitation facility. The patient was discharged in stable condition. Job ID: [id number] DocumentID: [id number] Dictated Date: 06/05/2018 08:12:09 Manager Of Tax Date: 06/05/2018 10:38:44 Dictated By: DEANNA JAMES DO MTDD
[2018-06-10] MEDS ORDERED: MELA3TAB PO (20:39)
[2018-06-10] MEDS ORDERED: METO-387 PO (20:39)
[2018-06-10] MEDS ORDERED: TOLTA4 PO (20:39)
== END 2018-06-05 08:00 ==
LOC: EDUNIT# 12:14 → ER 12:15 → UNDOADMOB 16:25 → 4TH 16:25 → UNDODISOB 06-05 09:40
PROVIDERS: ADMIT Surgery; ATTEND Family Medicine
DX: S06.0X0A Concussion without loss of consciousness, initial encounter (principal); R42 Dizziness and giddiness; N39.0 Urinary tract infection, site not specified; S50.02XA Contusion of left elbow, initial encounter; S70.02XA Contusion of left hip, initial encounter; I48.91 Unspecified atrial fibrillation; I25.10 Atherosclerotic heart disease of native coronary artery without angina pectoris; I25.2 Old myocardial infarction; I10 Essential (primary) hypertension; E78.00 Pure hypercholesterolemia, unspecified; E03.9 Hypothyroidism, unspecified; Z79.01 Long term (current) use of anticoagulants; Z79.82 Long term (current) use of aspirin; V48.4XXA Person boarding or alighting a car injured in noncollision transport accident, initial encounter
CPT/HCPCS: 36415; 70450; 72125; 73080; 76937; 80048; 80053; 81000; 83605; 84443; 85025; 87040; 87088; 96365; G0378

== ENCOUNTER 2018-06-05 09:05 | Inpatient (IN) | payer MEDICARE ==
[~2018-06-05] VITALS: Ht 147.3 cm; Wt 51.8 kg
[~2018-06-05 09:05] MED LIST changes: +AMIT25TA9 PO; +APIX5TAB PO; +ATOR10TA66 PO; +CALC-9 PO; +DILT300C26 PO; +LEVO50TA6 PO; +OMEG1CAP24 PO; +VIT1CAPS9 PO
[2018-06-05 09:40] VITALS: BP 154/80
--- NOTE | 2018-06-05 10:40 | HISTORY AND PHYSICAL ---
DATE OF SERVICE: 06/05/2018 CHIEF COMPLAINT: "I fell." HISTORY OF PRESENT ILLNESS: The patient is an 87-year-old female who lives alone in her own apartment in [place], [place], who fell with resulting concussion, left elbow contusion, left hip contusion. The patient had some dizziness related to this and feels she damaged hearing aids as well. She was found to have a UTI and placed on antibiotics. She was admitted to the service of trauma surgeon, Dr. James and seen in consultation by PCP, Dr. Girard. Therapies were begun. The patient was found to be appropriate for inpatient rehabilitation unit and the patient is now transferred. The patient had been modified independent with a walker prior to this. She has some dizziness and vertigo, status post fall, which is improving. Currently, she is min assist dressing and toileting, set up for eating and grooming. She is min assist for gait with a walker AND MOD ASSIST FOR TRANSFERS. PAST MEDICAL HISTORY: Hypertension, recent UTI, atrial fibrillation, coronary artery disease, PR, . PAST SURGICAL HISTORY: Appendectomy, bladder surgery, eye surgery, cholecystectomy, hysterectomy, oophorectomy, and rectal surgery. ALLERGIES: No known medication allergies. FAMILY HISTORY: Noncontributory. SOCIAL HISTORY: She is a . She enjoyed fishing and hunting with her . She has a supportive daughter who presents bedside, but lives in [place], [place]. REVIEW OF SYSTEMS: A 10-point review of systems significant for fall, irregular heartbeat, dizziness, vertigo. MEDICATIONS: Amitriptyline 25 mg p.o. at bedtime, Eliquis 5 mg p.o. b.i.d., lipitor 10 mg p.o. daily, calcium carbonate with vitamin D 1 tablet p.o. b.i.d., diltiazem 300 mg p.o. daily, levothyroxine 50 mcg p.o. daily, fish oil 1000 mg p.o. daily, omeprazole 20 mg p.o. daily, Ocuvite one tablet p.o. daily. PHYSICAL EXAMINATION: GENERAL: Significant for pleasant female, appearing her stated age, alert and oriented, no acute distress. VITAL SIGNS: She is afebrile. Blood pressure 124/65, respirations 20, pulse 74, and O2 sat 95% on room air. HEENT: She has a hearing aid with mildly impaired hearing. Vision and speech grossly intact. No oral lesion is noted. NECK: Supple without mass. HEART: Regular rhythm. CHEST: Clear. ABDOMEN: Soft, nontender, bowel sounds present. EXTREMITIES: She has bruising over both arms. No calf tenderness. No lower leg edema. MUSCULOSKELETAL: She has functional active range of motion of all four limbs. NEUROLOGIC: Sensation is grossly intact to touch. Cognition, alert and oriented BUT HAS MILDLY IMPAIRED MEMORY. She has generalized weakness.sTRENGTH lOWER LIMBS 4-/5,fUNCTIONAL STRENGTH bOTH UPPER LIMBS. IMPRESSION: 1. General debilitation secondary to fall with concussion. 2. UTI. 3. Vertigo. 4. Dizziness, improving. 5. Atrial fibrillation, controlled with medication. 6. mILD MEMORY LOSS 7. htn PLAN: The patient will have a comprehensive program OF inpatient rehabilitation with goal of maximizing level of functional INdependence prior to discharge home with family. The patient will have PT, OT 90 minutes per day each discipline, 5 days a week for 14 days with a goal of returning home, modified independent to supervision with home health care. The patient may need to consider assisted living setting due to lack of the support as she does live in her own apartment in [place] and had been independent prior to this. Please see post-admission physician evaluation, which is a separate document for details of plan of care. Speech therapy to do cognitive assessment and treat as indicated. Rehabilitation nursing assist with bowel, bladder, skin care, medication administration pain management and social economist for discharge planning, community reentry. Continue current medications. Follow up with Dr. Girard, PCP as per hER schedule. ESTIMATED LENGTH OF STAY: 14 days. PROGNOSIS: Rehab prognosis appears good for goals discharging home with home health care, modified independence supervision for ADLs, mobility skills versus to an assisted living facility. DIET: Regular. CODE STATUS: Full code. Job ID: [id number] DocumentID: [id number] Dictated Date: 06/05/2018 09:57:24 Clinical Researcher Date: 06/05/2018 10:39:20 Dictated By: VIELKA MORLEY MD [facility]
--- NOTE | 2018-06-05 12:38 | Physical Therapy Evaluation ---
PT Evaluation-General Medical Diagnosis Admission Date Jun 05, 2018 at 09:40 Medical Diagnosis: head contusion; fall Onset Date: Jun 03, 2018 Therapy Diagnosis Therapy Diagnosis: weakness; abn gait. Height/Weight Height (Feet): 4 Height (Inches): 10.00 Weight (Pounds): 114 Weight (Ounces): 2.0 Precautions Precautions/Isolations: Fall Prevention, Standard Precautions Weight Bear Status Right Lower Extremity: Right Full Weight Bearing Left Lower Extremity: Left Full Weight Bearing Referral Physician: yuli Reason for Referral: Evaluation/Treatment Medical History Pertinent Medical History: Atrial Fib, CAD, HTN, [place] Current History Pt was going to the lab to get blood drawn,she fell getting out of her car and hit her head and sustained a left hip and elbow contusion. Admitted to ARU for skilled PT intervnetion to increase her functioanl strength and mobilityl Reviewed History: Yes Social History Home: Apartment ([facility]) Current Living Status: Alone Entry Into Home: Level Entry Prior/Core FIM Prior Level of Function Functional [place] Measure 0=Not Assessed/NA 4=Minimal Assistance 1=Total Assistance 5=Supervision or Setup 2=Maximal Assistance 6=Modified [place] 3=Moderate Assistance 7=Complete [place] Bed Mobility: 7 Transfers (B,C,W/C) (FIM): 6 Gait: 6 Community ambulator and still drives. PT Evaluation-Current Subjective Agreeable to PT. Tearful and wants to return home but acknowledges that she needs to be stronger before she can go Pain Numeric Pain Scale: 5-Moderate Pain Location: Left Location Body Site: Hip (/glut area) Pain Description: Dull (sore) Pt/Family Goals Return to her apartment when she is able. Objective Patient Orientation: Person, Place, Time, Situation Problem Solving: Fair ROM/Strength ROM Lower Extremities WNL Strenght Lower Extremities grossly 4-/5 throughout Integumentary/Posture Integumentary refer to nursing notes. Bowel Incontinence: No Bladder Incontinence: No Posture normal and symmetrical Neuromuscular (Tone, Coordination, Reflexes) functional Sensory Vision: Wears Glasses Hearing: Hearing Aid/Aides Hand Dominance: Right Sensation Right Lower Extremit: Intact Sensation Left Lower Extremity: Intact Transfers Functional [place] Measure 0=Not Assessed/NA 4=Minimal Assistance 1=Total Assistance 5=Supervision or Setup 2=Maximal Assistance 6=Modified [place] 3=Moderate Assistance 7=Complete IndependenceIRFPAI Quality Coding Scale 6 Independent with activity with or without an assistive device 5 Patient requires set up or clean up by helper. Patient completes activity by themselves 4 Supervision or touching assist (CGA). [place] provide cues , steadying assist 3 The helper provides less than half the effort to complete the activity 2 The helper provides more than half the effort to complete the activity 1 Dependent. The helper does all the effort to complete an activity 7 Patient refused to complete or attempt activity 9 The patient did not perform the activity before the current illness or injury 88 Not attempted due to Medical conditions or safety concerns Transfers (B, C, W/C) (FIM): 3 Scootin Roll Left to Right (QC): 4 Supine to/from Sit: 3 (assist with both legs to get into bed. ) Sit to/from Stand: 4 (CGA for safety with skilled cues for sequencing and hand placement.) Sit to Lying (QC): 3 Lying to Sitting/Side of Bed(Q: 4 Sit to Stand (QC): 4 Chair/Zbg-tq-Lvsqe Xfer(QC): 4 Car Transfer (QC): 4 skilled cues for safety and sequencing. Gait Does the Patient Walk?: Yes Mode of Locomotion: Walk Anticipated Mode of Locomotion: Walk Gait (FIM): 2 Distance (FIM): 5=547-74 ft Walk 10 feet (QC): 4 Walk 50 ft with 2 Turns(QC): 4 Walk 150 ft (QC): 88 Walking 10ft/uneven surface-QC: 4 Distance: 50 ft Gait Assistive Device: FWW Comments/Gait Description decreased step length; slow gait and unsteady. Wheelchair Training Does the Pt Use a Wheelchair?: No Stairs Stairs (FIM): 2 #of Steps: 1 Level of Assist: 3 (mod assist to step up and down) 1 Step (curb) (QC): 3 4 Steps (QC): 88 Assistive Device: Walker 12 Steps (QC): 88 Balance Sitting Static: Fair Sitting Dynamic: Fair Standing Static: Fair Standing Dynamic: Fair Picking up an Object (QC): 88 (unsafe to attempt) Treatment functional gait and transfer training in the room and short distances in the queen; worked on bed mobiltiy as well. Assessment/Needs Pt presents post fall. Her functional transfers and impaired as well as gait requiring min assist. Her activity tolerance and functional strength is impaired as well. She will beneift from skilled PT intervention to work on safety and mobility to allow her to return home alone at a safe level. Rehab Potential: Good PT Short Term Goals Short Term Goals Time Frame: Jun 12, 2018 Transfers (B,C,W/C) (FIM): 5 Gait (FIM): 5 PT Nurse Prn Goals Nurse Prn Goals PT Care Home Goals Time Frame: Jun 19, 2018 Transfers (B,C,W/C) (FIM): 6 Sit to Lying (QC): 6 Lying-Sitting on Side/Bed(QC): 6 Sit to Stand (QC): 6 Roll Left to Right (QC): 6 Chair/Yjz-qz-Zyffk Xfer(QC): 6 Car Transfer (QC): 6 Does the Patient Walk: Yes Gait (FIM): 6 Gait distance (FIM): 3=150 ft Walk 10 feet (QC): 6 Walk 10ft-Uneven Surface(QC): 6 Walk 50ft with 2 Turns (QC): 6 Walk 150 ft (QC): 6 Gait Assistive Device: FWW Stairs (FIM): 5 # of Steps: 4 1 Step (curb) (QC): 6 4 Steps (QC): 6 12 Steps (QC): 88 Picking up an Object (QC): 4 PT Plan Problem List Problem List: Activity Tolerance, Functional Strength, Safety, Balance, Gait, Transfer, Bed Mobility Treatment/Plan Treatment Plan: Continue Plan of Care Treatment Plan: Bed Mobility, Education, Functional Activity Frank, Functional Strength, Group Therapy, Gait, Safety, Therapeutic Exercise, Transfers Treatment Duration: Jun 19, 2018 Frequency: At least 5 of 7 days/Wk (IRF) Estimated Hrs Per Day: 1.5 hours per day Patient and/or Family Agrees t: Yes Safety Risks/Education Patient Education: Transfer Techniques, Safety Issues Teaching Recipient: Patient Teaching Methods: Demonstration, Discussion Response to Teaching: Reinforcement Needed Discharge Recommendations Therapy D/C Recommendations: Physical Therapy Home Care Time/GCodes Time In: 940 Time Out: 1040 Total Billed Treatment Time: 60 Total Billed Treatment visit EVM 30 FA 30 GERARDO MILTON PT Jun 05, 2018 12:38
--- NOTE | 2018-06-05 14:08 | Physical Therapy Daily Note ---
PT Daily Note-Current Subjective Agreeable to PT. Going to [employer] to get her hearing aides fixed. Pain Numeric Pain Scale: 0-No Pain Location: No Pain Reported Mental Status Patient Orientation: Person, Place, Time, Situation Transfers Functional [place] Measure 0=Not Assessed/NA 4=Minimal Assistance 1=Total Assistance 5=Supervision or Setup 2=Maximal Assistance 6=Modified [place] 3=Moderate Assistance 7=Complete IndependenceIRFPAI Quality Coding Scale 6 Independent with activity with or without an assistive device 5 Patient requires set up or clean up by helper. Patient completes activity by themselves 4 Supervision or touching assist (CGA). [place] provide cues , steadying assist 3 The helper provides less than half the effort to complete the activity 2 The helper provides more than half the effort to complete the activity 1 Dependent. The helper does all the effort to complete an activity 7 Patient refused to complete or attempt activity 9 The patient did not perform the activity before the current illness or injury 88 Not attempted due to Medical conditions or safety concerns Transfers (B, C, W/C) (FIM): 4 Sit to/from Stand: 4 (skilled cues for sequencing) Car Transfer (QC): 4 (in her daughter's car with min assist and cues 50% of the time to sequence. ) Toilet transfer with min assist; min assist with clothing management. Min assist for balance to stand to perform pericare and clothing management. Weight Bearing Right Lower Extremity: Right Full Weight Bearing Left Lower Extremity: Left Full Weight Bearing Gait Training Does the Patient Walk?: Yes Gait (FIM): 2 Distance (FIM): 9=251-99 ft Distance: 50 ft and 125 ft Gait Level of Assist: 4 (min assist. ) Gait Assistive Device: FWW decreased step length and decreased velocity. Gait on sidewalk on slight slope down with FWW x 15 ft with Min assist for balance. Assessment Current Status: Good Progress pt's ability to ambulate is improving but still unsteady and needs assist for safety. She is wearing her shoes which does seem to help. PT Short Term Goals Short Term Goals Time Frame: Jun 12, 2018 Transfers (B,C,W/C) (FIM): 5 Gait (FIM): 5 PT Shelter Goals [place] Bone Roller Goals PT [place] Roller Goals Time Frame: Jun 19, 2018 Transfers (B,C,W/C) (FIM): 6 Sit to Lying (QC): 6 Lying-Sitting on Side/Bed(QC): 6 Sit to Stand (QC): 6 Roll Left to Right (QC): 6 Chair/Pcy-dq-Qliqg Xfer(QC): 6 Car Transfer (QC): 6 Does the Patient Walk: Yes Gait (FIM): 6 Gait distance (FIM): 3=150 ft Walk 10 feet (QC): 6 Walk 10ft-Uneven Surface(QC): 6 Walk 50ft with 2 Turns (QC): 6 Walk 150 ft (QC): 6 Gait Assistive Device: FWW Stairs (FIM): 5 # of Steps: 4 1 Step (curb) (QC): 6 4 Steps (QC): 6 12 Steps (QC): 88 Picking up an Object (QC): 4 PT Plan Problem List Problem List: Activity Tolerance, Functional Strength, Safety, Balance, Gait, Transfer, Bed Mobility Treatment/Plan Treatment Plan: Continue Plan of Care Treatment Plan: Bed Mobility, Education, Functional Activity Frank, Functional Strength, Group Therapy, Gait, Safety, Therapeutic Exercise, Transfers Treatment Duration: Jun 19, 2018 Frequency: At least 5 of 7 days/Wk (IRF) Estimated Hrs Per Day: 1.5 hours per day Patient and/or Family Agrees t: Yes Safety Risks/Education Patient Education: Transfer Techniques, Safety Issues Teaching Recipient: Patient Teaching Methods: Discussion Response to Teaching: Reinforcement Needed Time/GCodes Time In: 1245 Time Out: 1315 Total Billed Treatment Time: 30 Total Billed Treatment visit FA 30 GERARDO MILTON PT Jun 05, 2018 14:08
--- NOTE | 2018-06-05 14:33 | Occupational Therapy Eval ---
OT Evaluation-General/PLF Medical Diagnosis Admission Date Jun 05, 2018 at 09:40 Medical Diagnosis: head contusion; fall Onset Date: Jun 03, 2018 Therapy Diagnosis Therapy Diagnosis: Weakness Height/Weight Height (Feet): 4 Height (Inches): 10.00 Weight (Pounds): 114 Weight (Ounces): 2.0 Precautions Precautions/Isolations: Fall Prevention, Standard Precautions Weight Bear Status Weight Bearing Restriction: Weight Bearing/Tolerated Referral Physician: yuli Referral Reason: Activity Tolerance, Self Care, Evaluation/Treatment, Strengthening/ROM Medical History Pertinent Medical History: Atrial Fib, CAD, HTN, [place] Current History Pt. fell going into [facility]. Reviewed History: Yes Social History Home: Apartment ([facility]) Current Living Status: Alone Entry Into Home: Level Entry ADL-Prior Level of Function ADL PLOF Comments Pt. was independent with all ADLs prior to this hospitalization. Pt. is very social, and belongs to multiple card groups. Pt. drives. She lives in an apartment. DME/Equipment: Grab Bars, Tub/Shower DME/Equipment Comments Pt. has a walker. Drive Self: Yes OT Current Status Subjective No pain reported. Appearance Pt. up in chair. Agrees to work with OT. Mental Status/Objective Patient Orientation: Person, Place Attachments: IV Current Glasses/Contacts: Yes Hearing Aids: Yes Hand Dominance: Right Upper Extremity ROM WFL Upper Extremity Strength WFL ADL-Treatment Functional [place] Measure 0=Not Assessed/NA 4=Minimal Assistance 1=Total Assistance 5=Supervision or Setup 2=Maximal Assistance 6=Modified [place] 3=Moderate Assistance 7=Complete IndependenceIRFPAI Quality Coding Scale 6 Independent with activity with or without an assistive device 5 Patient requires set up or clean up by helper. Patient completes activity by themselves 4 Supervision or touching assist (CGA). [place] provide cues , steadying assist 3 The helper provides less than half the effort to complete the activity 2 The helper provides more than half the effort to complete the activity 1 Dependent. The helper does all the effort to complete an activity 7 Patient refused to complete or attempt activity 9 The patient did not perform the activity before the current illness or injury 88 Not attempted due to Medical conditions or safety concerns Grooming (FIM): 5 (SBA to comb hair.) Bathing (FIM): 4 (CGA in stance for balance. Pt. declines showering but agrees to spongebathe.) Shower/Bathe Self (QC): 4 Upper Body Dressing (FIM): 5 Upper Body Dressing (QC): 5 Lower Body Dressing (FIM): 4 (CGA in stance for balance.) Lower Body Dressing (QC): 4 On/Off Footwear (QC): 5 Transfers (B, C, W/C) (FIM): 4 Other Treatments Pt. states that she has had some "dizziness" since a previous fall 3 years ago. Pt. is KLUT[place] KAA[place] right now due to having a broken hearing aide. Has difficulty understanding OT at times. Pt. requires CGA with transfers due to some instability. Education OT Patient Education: Correct positioning, Modified ADL techniques, Progress toward Goal/Update tx plan, Purpose of tx/functional activities, Reviewed precautions, Rehab process, Transfer techniques Teaching Recipient: Patient Teaching Methods: Demonstration, Discussion Response to Teaching: Verbalize Understanding, Return Demonstration OT Short Term Goals Short Term Goals Time Frame: Jun 12, 2018 Eating(FIM): 5 Grooming(FIM): 5 Bathing(FIM): 5 Upper Body Dressing(FIM): 5 Lower Body Dressing(FIM): 5 Toileting(FIM): 5 Transfers (B,C,W/C) (FIM): 5 Toilet/Commode Transfer(FIM): 5 Shower Transfer(FIM): 5 Additional Short Term Goals: 1-Demonstrate ADL Tasks, 2-Verbalize Understanding , 3-ImproveStrength/Frank 1=Demonstrate adherence to instructed precautions during ADL tasks. 2=Patient will verbalize/demonstrate understanding of assistive devices/ modifications for ADL. 3=Patient will improve strength/tolerance for activity to enable patient to perform ADL's. OT Senior Care Goals User Experience Architect Goals Time Frame: Jun 19, 2018 Eating (FIM): 6 Eating (QC): 6 Groomin Oral Hygiene (QC): 6 Bathing(FIM): 6 Shower/Bathe Self (QC): 6 Upper Body Dressing(FIM): 6 Upper Body Dressing (QC): 6 Lower Body Dressing(FIM): 6 Lower Body Dressing (QC): 6 On/Off Footwear (QC): 6 Toileting(FIM): 6 Toileting Hygiene (QC): 6 Transfers (B,C,W/C) (FIM): 6 Toilet/Commode Transfer(FIM): 6 Toilet/Commode Transfer (QC): 6 Shower Transfer(FIM): 6 Additional Goals: 1-Demonstrate ADL Tasks, 2-Verbalize Understanding, 3- ImproveStrength/Frank 1=Demonstrate adherence to instructed precautions during ADL tasks. 2=Patient will verbalize/demonstrate understanding of assistive devices/ modifications for ADL. 3=Patient will improve strength/tolerance for activity to enable patient to perform ADL's. OT Education/Plan Problem List/Assessment Assessment: Decreased Activ Tolerance, Impaired Funct Balance, Impaired I ADL's , Impaired Self-Care Skills Discharge Recommendations Plan/Recommendations: Continue POC Therapy D/C Recommendations: Home w/ Family Support, Occupational Therapy Home Care Equpiment Recommendations-D/C: Bath Chair Patient/Family Goals To return to apartment independently. Treatment Plan/Plan of Care Treatment,Training & Education: Yes Patient would benefit from OT for education, treatment and training to promote independence in ADL's, mobility, safety and/or upper extremity function for ADL' s. Plan of Care: ADL Retraining, Functional Mobility, Group Exercise/Act as Ind, UE Funct Exercise/Act Treatment Duration: Jun 19, 2018 Frequency: At least 5 of 7 days/Wk (IRF) Estimated Hrs Per Day: 1.5 hours per day Agreement: Yes Rehab Potential: Good Time/GCodes Start Time: 11:30 Stop Time: 12:30 Total Time Billed (hr/min): 60 Billed Treatment Time 1, EVM x 15minutes, ADL x 45minutes MALINI MCKEE OT Jun 05, 2018 14:33
[2018-06-05] MEDS: CALCIUM CARB + VIT D 600 MG (CALCARB + D) TAB PO SCH (16:35)
--- NOTE | 2018-06-05 17:29 | Progress Note (SOAP) ---
Subjective Date Seen by Provider: Jun 05, 2018 Time Seen by Provider: 12:30 Subjective/Events-last exam This is an 87 year old female who sustained a recent fall with resulting head trauma, left elbow contusion and left hip contusion. She has had some ongoing dizziness and was also found to have a UTI. It was decided to transfer her to acute rehab for ongoing PT/OT and gait/strengthening. Objective Exam Vital Signs Date Time Temp Pulse Resp B/P (MAP) Pulse Ox O2 Delivery O2 Flow Rate FiO2 06/05/18 10:50 Room Air 06/05/18 09:40 97.6 78 20 154/80 (104) 98 Room Air Capillary Refill : General Appearance: No Apparent Distress Neck: Supple Respiratory: Lungs Clear Cardiovascular: Regular Rate, Rhythm Gastrointestinal: normal bowel sounds, non tender, soft Extremity: Non Tender, No Calf Tenderness, No Pedal Edema Neurologic/Psychiatric: Alert, Oriented x3 Skin: Ecchymosis (left posterior hip/tailbone with bruising/ left elbow contusion) Assessment/Plan Assessment/Plan Assess & Plan/Chief Complaint 1. Fall with Head Trauma--rehab for PT/OT and strengthening 2. Left Elbow contusion--stable 3. Left Hip Contusion--stable 4. Hypertension--back on home meds 5. UTI--on rocephin 6. History of Atrial Fibrillation--in NSR Clinical Quality Measures DVT/VTE Risk/Contraindication: Risk Factor Score Per Nursin RFS Level Per Nursing on Admit: 4+=Very High NALINI ZARCO DO Jun 05, 2018 5:29 pm
[2018-06-05 17:39] VITALS: BP 180/75
[2018-06-05] MEDS ORDERED: ATORVASTATIN 40 MG (LIPITOR) TABLET PO SCH (21:00)
[2018-06-05] MEDS ORDERED: AMITRIPTYLINE 25 MG (ELAVIL) TAB PO SCH (21:00)
[2018-06-05] MEDS: ATORVASTATIN 10 MG (LIPITOR) TABLET PO SCH (21:04)
[2018-06-05] MEDS: APIXABAN 5 MG (ELIQUIS) TABLET PO SCH (21:04)
[2018-06-05] MEDS: POLYETHYLENE GLYCOL 17 GM (MIRALAX) PACK PO SCH (21:04)
[2018-06-06 06:00] VITALS: BP 161/89
[2018-06-06] MEDS: LEVOTHYROXINE 50 MCG (LEVOTHROID) TAB PO SCH (06:48)
[2018-06-06] MEDS: PANTOPRAZOLE 20 MG TABLET (PROTONIX) PO SCH (06:48)
[2018-06-06] MEDS: CALCIUM CARB + VIT D 600 MG (CALCARB + D) TAB PO SCH ×2 (06:48→16:06)
--- NOTE | 2018-06-06 07:11 | PM&R Post Admission Assessment ---
Post Admission Physician Asses Date seen by provider: Jun 05, 2018 Time seen by provider: 11:15 The preadmission screen agrees with the post admission assessment that the patient is a good candidate for inpatient rehabilitation. The patient will have a comprehensive program of inpatient rehabilitation with a goal of maximizing level of functional independence prior to discharge home with [facility]. The patient will have PT/OT ninety minutes per day, each discipline , five days a week for 2 weeks for gait, strengthening, conditioning, balance, ADLs, any patient/family/caregiver training as necessary. Speech therapy to do cognitive assessment and treat as indicated. Rehabilitation nursing to assist with bowel, bladder, skin, wound care, medication administration, pain management. Buy Boat Operator to assist with discharge planning, community reentry. SCD's for DVT prophylaxis. She appears to be well motivated to participate in three hours of therapy a day. She should be able to tolerate three hours of therapy a day from a medical standpoint. She should benefit from the three hours of therapy a day. She has a reasonable discharge plan, reasonable discharge rehabilitation goals and a supportive family. She has various comorbidities that need to be closely monitored with medications and treatments adjusted on a daily basis as needed. These include: HTN UTI Barriers to discharge for this patient who had been independent prior to this are for her to be modified independent to supervision for ADLs and mobility skills prior to discharge home with [facility], so as to lessen the burden of the caregivers.Her daughter lives in [facility] and patient may need to consider PRISON upon discharge or moving closeer to family. Risks for this patient include: 1. Fall 2. Fracture 3. DVT 4. Pulmonary embolism 5. Wound infection 6. Skin breakdown 7. Contractures 8. Poorly controlled pain 9. Urinary retention 10. Recurrent UTI 11. Respiratory infection 12. Aspiration 13. Poorly controlled HTN Estimated Length of Stay: 14 days Prognosis: Rehab prognosis appears good for goal of discharge home with [facility] VS discharge home with family or to an PRISON modified independent to supervision for ADLs and mobility skills. General: Alert, Oriented X3, Cooperative HEENT: Atraumatic, PERRLA, EOMI, Mucous Memb Moist/[place], Other (NUNAKAUYARMIUT heARING AIDE ) Neck: Supple, No JVD Lungs: Clear to Auscultation Heart: Regular Rate Abdomen: Normal Bowel Sounds, Soft, No Tenderness Extremities: No Edema Skin: Other (ECCHYMOSIS BOTH ARMS WITH CONTUSION ELBOW AND HIP) Neuro: Other (GENERALIZED WEAKNESS) VIELKA MORLEY MD Jun 06, 2018 07:10
[2018-06-06] MEDS: DILTIAZEM 300 MG (CARDIZEM CD) CAP PO SCH (08:18)
[2018-06-06] MEDS: OMEGA 3 (FISH OIL) 1000 MG CAP PO SCH (08:18)
[2018-06-06] MEDS: APIXABAN 5 MG (ELIQUIS) TABLET PO SCH ×2 (08:18→20:30)
--- NOTE | 2018-06-06 09:21 | Occupational Ther Daily Note ---
OT Current Status-Daily Note Subjective No pain reported. Appearance Pt. up in chair. Agrees to shower. Mental Status/Objective Patient Orientation: Person, Place Functional [place] Measure 0=Not Assessed/NA 4=Minimal Assistance 1=Total Assistance 5=Supervision or Setup 2=Maximal Assistance 6=Modified [place] 3=Moderate Assistance 7=Complete [place] ADL-Treatment Functional [place] Measure 0=Not Assessed/NA 4=Minimal Assistance 1=Total Assistance 5=Supervision or Setup 2=Maximal Assistance 6=Modified [place] 3=Moderate Assistance 7=Complete IndependenceIRFPAI Quality Coding Scale 6 Independent with activity with or without an assistive device 5 Patient requires set up or clean up by helper. Patient completes activity by themselves 4 Supervision or touching assist (CGA). [place] provide cues , steadying assist 3 The helper provides less than half the effort to complete the activity 2 The helper provides more than half the effort to complete the activity 1 Dependent. The helper does all the effort to complete an activity 7 Patient refused to complete or attempt activity 9 The patient did not perform the activity before the current illness or injury 88 Not attempted due to Medical conditions or safety concerns Grooming (FIM): 5 (Set up at sink.) Oral Hygiene (QC): 4 Bathing (FIM): 4 (CGA in stance due to dizziness and imbalance.) Shower/Bathe Self (QC): 4 Upper Body (FIM): 5 Upper Body Dressing (QC): 4 Lower Body Dressing (FIM): 4 (CGA in stance to pull underwear and pants over hips.) Lower Body Dressing (QC): 4 On/Off Footwear (QC): 4 Transfers (B, C, W/C) (FIM): 4 Shower Transfer(FIM): 4 Other Treatment Pt. reports that when she looks down, she becomes dizzy. After she looks back up though, this corrects itself. Pt. required CGA to stabilize in stance during dynamic tasks. Pt. requires cues at times to sequence and problem solve. All needs met back in chair. Education OT Patient Education: Correct positioning, Modified ADL techniques, Progress toward Goal/Update tx plan, Purpose of tx/functional activities, Reviewed precautions, Rehab process, Transfer techniques Teaching Recipient: Patient Teaching Methods: Demonstration Response to Teaching: Verbalize Understanding, Return Demonstration OT Short Term Goals Short Term Goals Time Frame: Jun 12, 2018 Eating(FIM): 5 Grooming(FIM): 5 Bathing(FIM): 5 Upper Body Dressing(FIM): 5 Lower Body Dressing(FIM): 5 Toileting(FIM): 5 Transfers (B,C,W/C) (FIM): 5 Toilet/Commode Transfer(FIM): 5 Shower Transfer(FIM): 5 Additional Short Term Goals: 1-Demonstrate ADL Tasks, 2-Verbalize Understanding , 3-ImproveStrength/Frank 1=Demonstrate adherence to instructed precautions during ADL tasks. 2=Patient will verbalize/demonstrate understanding of assistive devices/ modifications for ADL. 3=Patient will improve strength/tolerance for activity to enable patient to perform ADL's. OT Aircraft Maintenance Supervisor Goals Assisted Goals Time Frame: Jun 19, 2018 Eating (FIM): 6 Eating (QC): 6 Groomin Oral Hygiene (QC): 6 Bathing(FIM): 6 Shower/Bathe Self (QC): 6 Upper Body Dressing(FIM): 6 Upper Body Dressing (QC): 6 Lower Body Dressing(FIM): 6 Lower Body Dressing (QC): 6 On/Off Footwear (QC): 6 Toileting(FIM): 6 Toileting Hygiene (QC): 6 Transfers (B,C,W/C) (FIM): 6 Toilet/Commode Transfer(FIM): 6 Toilet/Commode Transfer (QC): 6 Shower Transfer(FIM): 6 Additional Goals: 1-Demonstrate ADL Tasks, 2-Verbalize Understanding, 3- ImproveStrength/Frank 1=Demonstrate adherence to instructed precautions during ADL tasks. 2=Patient will verbalize/demonstrate understanding of assistive devices/ modifications for ADL. 3=Patient will improve strength/tolerance for activity to enable patient to perform ADL's. OT Education/Plan Problem List/Assessment Assessment: Decreased Activ Tolerance, Dependent Transfers, Impaired I ADL's, Impaired Self-Care Skills Discharge Recommendations Plan/Recommendations: Continue POC Therapy D/C Recommendations: Home w/ Family Support, Scheduled Assistance Equpiment Recommendations-D/C: Bath Chair Treatment Plan/Plan of Care Treatment,Training & Education: Yes Patient would benefit from OT for education, treatment and training to promote independence in ADL's, mobility, safety and/or upper extremity function for ADL' s. Plan of Care: ADL Retraining, Functional Mobility, Group Exercise/Act as Ind, UE Funct Exercise/Act Treatment Duration: Jun 19, 2018 Frequency: At least 5 of 7 days/Wk (IRF) Estimated Hrs Per Day: 1.5 hours per day Agreement: Yes Rehab Potential: Good Time/GCodes Start Time: 08:15 Stop Time: 09:15 Total Time Billed (hr/min): 60 Billed Treatment Time 1, ADL x 4 MALINI MCKEE OT Jun 06, 2018 09:21
--- NOTE | 2018-06-06 11:36 | Physical Therapy Daily Note ---
PT Daily Note-Current Subjective Pt sitting in recliner upon arrival. Pt agrees to PT. Pain Numeric Pain Scale: 5-Moderate Pain Location: Left, Dorsal Location Body Site: Sacrum Pain Description: Sharp Mental Status Patient Orientation: Person, Place, Situation Transfers Functional [place] Measure 0=Not Assessed/NA 4=Minimal Assistance 1=Total Assistance 5=Supervision or Setup 2=Maximal Assistance 6=Modified [place] 3=Moderate Assistance 7=Complete IndependenceIRFPAI Quality Coding Scale 6 Independent with activity with or without an assistive device 5 Patient requires set up or clean up by helper. Patient completes activity by themselves 4 Supervision or touching assist ([facility]). [place] provide cues , steadying assist 3 The helper provides less than half the effort to complete the activity 2 The helper provides more than half the effort to complete the activity 1 Dependent. The helper does all the effort to complete an activity 7 Patient refused to complete or attempt activity 9 The patient did not perform the activity before the current illness or injury 88 Not attempted due to Medical conditions or safety concerns Scootin Sit to/from Stand: 4 Sit to Stand (QC): 4 Weight Bearing Right Lower Extremity: Right Full Weight Bearing Left Lower Extremity: Left Full Weight Bearing Gait Training Does the Patient Walk?: Yes Distance (FIM): 3=150 ft Distance: 150' Walk 10 feet (QC): 4 Walk 50 ft with 2 Turns(QC): 4 Walk 150 ft (QC): 4 Gait Level of Assist: 4 Gait Persons Needed: 1 Gait Assistive Device: FWW Pt self corrects balance several times during ambulation. Pt is unstable at times so SOFTWARE VALIDATION ENGINEER assists at [facility]. Wheelchair Training Does the Pt Use a Wheelchair?: No Exercises Seated Therapy Exercises: Ankle pumps, Long arc quads, Hip flexion, Kicking activity, Hip abd/add Seated Reps: 20 NuStep Minutes: 10 NuStep Workload: 3 Treatments Pt transfers recliner to standing using FWW at [facility]. Pt uses restroom before leaving for tx. Pt ambulates in hallway using FWW at [facility]. Pt uses NuStep for 10m followed by Seated Ex in chair. Pt takes short rest before ambulating back to room at end of tx. Pt rests in recliner with all needs met, including call light in hand. Assessment Current Status: Good Progress Pt takes extended time to complete tasks although this is improving. Pt still has moments of LOB but is able to self correct. PT Short Term Goals Short Term Goals Time Frame: Jun 12, 2018 Transfers (B,C,W/C) (FIM): 5 Gait (FIM): 5 PT Property Coordinator Goals Property Coordinator Goals PT Property Coordinator Goals Time Frame: Jun 19, 2018 Transfers (B,C,W/C) (FIM): 6 Sit to Lying (QC): 6 Lying-Sitting on Side/Bed(QC): 6 Sit to Stand (QC): 6 Roll Left to Right (QC): 6 Chair/Jxs-oe-Gflus Xfer(QC): 6 Car Transfer (QC): 6 Does the Patient Walk: Yes Gait (FIM): 6 Gait distance (FIM): 3=150 ft Walk 10 feet (QC): 6 Walk 10ft-Uneven Surface(QC): 6 Walk 50ft with 2 Turns (QC): 6 Walk 150 ft (QC): 6 Gait Assistive Device: FWW Stairs (FIM): 5 # of Steps: 4 1 Step (curb) (QC): 6 4 Steps (QC): 6 12 Steps (QC): 88 Picking up an Object (QC): 4 PT Plan Problem List Problem List: Activity Tolerance, Functional Strength, Safety, Balance, Gait, Transfer Treatment/Plan Treatment Plan: Continue Plan of Care Treatment Plan: Bed Mobility, Education, Functional Activity Frank, Functional Strength, Group Therapy, Gait, Safety, Therapeutic Exercise, Transfers Treatment Duration: Jun 19, 2018 Frequency: At least 5 of 7 days/Wk (IRF) Estimated Hrs Per Day: 1.5 hours per day Patient and/or Family Agrees t: Yes Safety Risks/Education Patient Education: Gait Training, Transfer Techniques, Correct Positioning, Safety Issues Teaching Recipient: Patient Teaching Methods: Discussion Response to Teaching: Verbalize Understanding Time/GCodes Time In: 1000 Time Out: 1100 Total Billed Treatment Time: 60 Total Billed Treatment 1, GT (15m), FA (15m) & EX x2 (30m) G Codes Necessary: THAIS Chacon SOFTWARE VALIDATION ENGINEER Jun 06, 2018 11:36
--- NOTE | 2018-06-06 14:07 | Progress Note (SOAP) ---
Subjective Date Seen by Provider: Jun 06, 2018 Time Seen by Provider: 14:04 Subjective/Events-last exam Fwup fall with head trauma, left elbow contusion and left hip contusion, dizziness, HTN, history of atrial fibrillation, UTI. Feeling better. Dizziness improving. Objective Exam Vital Signs Date Time Temp Pulse Resp B/P (MAP) Pulse Ox O2 Delivery O2 Flow Rate FiO2 06/06/18 08:43 Room Air 06/06/18 06:00 97.7 81 18 161/89 (113) 96 Room Air 06/05/18 21:00 98 Room Air 06/05/18 17:39 98.0 71 16 180/75 (110) 98 Room Air I & O 06/06/18 07:00 Intake Total 710 ml Balance 710 ml Capillary Refill : General Appearance: No Apparent Distress Neck: Supple Respiratory: Lungs Clear Cardiovascular: Regular Rate, Rhythm, Systolic Murmur Gastrointestinal: normal bowel sounds, non tender, soft Extremity: Non Tender, No Calf Tenderness, No Pedal Edema Neurologic/Psychiatric: Alert, Oriented x3 Assessment/Plan Assessment/Plan Assess & Plan/Chief Complaint 1. Fall with Head Trauma--rehab for PT/OT and strengthening 2. Left Elbow contusion--stable 3. Left Hip Contusion--stable 4. Hypertension--back on home meds but will add low dose metoprolol due to ongoing elevation 5. UTI--on rocephin 6. History of Atrial Fibrillation--in NSR 7. Insomnia--DC elavil and add melatonin as the elavil may be contributing to grogginess and the dizziness 8. Dizziness--improving, will see if resolves with better BP control and DC of elavil Clinical Quality Measures DVT/VTE Risk/Contraindication: Risk Factor Score Per Nursin RFS Level Per Nursing on Admit: 4+=Very High NALINI ZARCO DO Jun 06, 2018 2:07 pm
--- NOTE | 2018-06-06 14:48 | Therapy Group Daily Note ---
Therapy Daily Group Note Patient Education Topic Other List Below (Memory & Memory Strategies) Exercises LE Seated Exercise, UE Exercise Other/Notes Pt ambulates to Group using FWW at close SBA. Pt participated in PT/OT Group which consisted of Introductions (Name, Where you are from, Favorite childhood memory), Socialization, Memory Strategies, Memory Activity and Seated UE/LE Ex. Pt actively participated in Group by giving personal examples of memory strategies used, participating in Memory Activity & completing Seated Ex. Pt returns to room at the end of Group to rest with all needs met, including call light & phone. Start Time: 13:00 Stop Time: 14:05 Total Billed Treatment Time: 65 Total Billed Treatment 1, GRP THAIS NARAYNA BEAMER HAND Jun 06, 2018 14:48
--- NOTE | 2018-06-06 14:48 | Speech Therapy Daily Note ---
Speech Daily Progress Note Subjective Date Seen by Provider: Jun 06, 2018 Time Seen by Provider: 11:30 Pt pleasant and cooperative. Pain Numeric Pain Scale: 0-No Pain Objective Picture recall. Pt shown picture and asked to describe it. Recall of picture 20 minutes later was 80% accurate. Word List Retention was 60% accurate. Assessment Assessment Current Status: Good Progress Treatment Plan Continue Plan of Care Communication Comprehension: 6 Expression: 7 Social Cognition Social Interaction: 7 Problem Solvin Memory: 4 Speech Short Term Goals Short Term Goals Short Term Goals Pt's accuracy for recall for various memory activities will be at least 85% accurate. Time Frame-ST week Comprehension: 6 Expression: 7 Social Interaction: 7 Problem Solvin Memory: 5 Speech Group Home Goals Material Combiner Goals Pt will exhibit functional memory for independence in the home. Comprehension: 6 Expression: 7 Social Interaction: 7 Problem Solvin Memory: 5 Speech-Plan Patient/Family Goals Patient/Family Goals: to return home Treatment Plan Speech Therapy Treatment Plan: Continue Plan of Care see above Frequency: 5 times per week Estimated Hrs Per Day: .5 hour per day Rehab Potential: Good Pt/Family Agrees to Plan: Yes Time Speech Therapy Time In: 11:30 Speech Therapy Time Out: 12:00 Total Billed Time: 30 Billed Treatment Time 1, ROYCE ANDRES Jun 06, 2018 14:48
--- NOTE | 2018-06-06 15:18 | ST Cognitive Linguistic Eval ---
Speech Evaluation-General Medical Diagnosis head contusion; fall Onset Date: Jun 03, 2018 Therapy Diagnosis Therapy Diagnosis: Cognition Precautions Precautions/Isolations: Fall Prevention, Standard Precautions Referral Referring Physician: Julito Medical History Pertinent Medical History: Atrial Fib, CAD, HTN, [place] Current History Pt fell while getting out of car. Reviewed History: Yes Social History Current Living Status: Alone Speech PLF-Current Status Prior Level of Function pt was independent Subjective pleasant and cooperative. Pain Numeric Pain Scale: 0-No Pain Language Eval: Auditory Comprehends Simple Yes/No Ques: Functional Follows 1-Step Commands: Functional Follows Complex Directions: Functional Follows General Conversations: Functional Language Eval: Verbal Language Completes Spontaneous Greeting: Functional Requests Basic Needs: Functional States Basic Personal Info: Functional Expresses Complex Ideas: Functional Language Evaluation: Reading NA Objective Cognitive Domain Attention: WNL Memory: Mild Problem Solving: Functional Objective Results The MARH was administered to asses cognitive linguistic functioning. Results indicate a mild memory deficit. Impression Mild cognitive impairment Communication/Social Cognition Comprehension: 6 Expression: 7 Social Interaction: 7 Problem Solvin Memory: 4 Speech Patient Assess Expression of Ideas/Wants: Expression (4) Understanding Verbal Content: Understands (4) Brief Interview-Mental Status: Yes Repetition of Three Words: Three (3) Temporal Orientation: Year: Missed by 1 year (2) Temporal Orientation: Month: Accurate within 5 days(2) Temporal Orientation: Day: Correct (1) Recall : Wear to say "Sock": Yes, no cue required (2) Recall : Color: Yes, no cue required (2) Recall : Bed: Yes, no cue required (2) Speech Short Term Goals Short Term Goals Short Term Goals Pt's accuracy for recall for various memory activities will be at least 85% accurate. Time Frame-ST week Comprehension: 6 Expression: 7 Social Interaction: 7 Problem Solvin Memory: 5 Speech Mcfp Goals Mcfp Goals Pt will exhibit functional memory for independence in the home. Comprehension: 6 Expression: 7 Social Interaction: 7 Problem Solvin Memory: 6 Speech-Plan Patient/Family Goals Patient/Family Goals: to return home Treatment Plan Speech Therapy Treatment Plan: Modify Plan, See Comments skilled speech therapy service are indicated. Frequency: 5 times per week Estimated Hrs Per Day: .5 hour per day Rehab Potential: Good Pt/Family Agrees to Plan: Yes Time Speech Therapy Time In: 10:45 Speech Therapy Time Out: 11:50 Total Billed Time: 30 Billed Treatment Time 1, ROYCE Mijares Jun 06, 2018 15:18
[2018-06-06 17:46] VITALS: BP 164/76
[2018-06-06] MEDS: MELATONIN 3 MG TABLET PO SCH (20:30)
[2018-06-06] MEDS: ATORVASTATIN 10 MG (LIPITOR) TABLET PO SCH (20:30)
[2018-06-06] MEDS: POLYETHYLENE GLYCOL 17 GM (MIRALAX) PACK PO SCH (20:31)
[2018-06-07 05:05] VITALS: BP 145/67
[2018-06-07] MEDS: PANTOPRAZOLE 20 MG TABLET (PROTONIX) PO SCH (06:27)
[2018-06-07] MEDS: CALCIUM CARB + VIT D 600 MG (CALCARB + D) TAB PO SCH ×2 (06:27→16:48)
[2018-06-07] MEDS: LEVOTHYROXINE 50 MCG (LEVOTHROID) TAB PO SCH (06:27)
--- NOTE | 2018-06-07 08:30 | Physical Therapy Daily Note ---
PT Daily Note-Current Subjective Patient sitting EOB pre tx, nurse in the room. Patient has no complaints of pain. Appearance Patient in recliner post tx with nurse call, phone, tray, all needs met. Mental Status Patient Orientation: Person, Situation Transfers Functional [place] Measure 0=Not Assessed/NA 4=Minimal Assistance 1=Total Assistance 5=Supervision or Setup 2=Maximal Assistance 6=Modified [place] 3=Moderate Assistance 7=Complete IndependenceIRFPAI Quality Coding Scale 6 Independent with activity with or without an assistive device 5 Patient requires set up or clean up by helper. Patient completes activity by themselves 4 Supervision or touching assist (CGA). [place] provide cues , steadying assist 3 The helper provides less than half the effort to complete the activity 2 The helper provides more than half the effort to complete the activity 1 Dependent. The helper does all the effort to complete an activity 7 Patient refused to complete or attempt activity 9 The patient did not perform the activity before the current illness or injury 88 Not attempted due to Medical conditions or safety concerns Transfers (B, C, W/C) (FIM): 5 Sit to/from Stand: 5 Bed to/from Chair: 5 Weight Bearing Right Lower Extremity: Right Full Weight Bearing Left Lower Extremity: Left Full Weight Bearing Gait Training Gait (FIM): 4 Distance: 150'x2 Gait Level of Assist: 4 Gait Persons Needed: 1 Gait Assistive Device: FWW CGA, patient needs cues for direction but no LOB or unsteadiness Exercises Standing: Hip Abduction, Heel/toe raises, Marching, Mini squats Standing Reps: 15 Treatments transfers, ambulation, functional strengthening Assessment Current Status: Fair Progress PT Short Term Goals Short Term Goals Time Frame: Jun 12, 2018 Transfers (B,C,W/C) (FIM): 5 Gait (FIM): 5 PT Longterm Goals Longterm Goals PT Longterm Goals Time Frame: Jun 19, 2018 Transfers (B,C,W/C) (FIM): 6 Sit to Lying (QC): 6 Lying-Sitting on Side/Bed(QC): 6 Sit to Stand (QC): 6 Roll Left to Right (QC): 6 Chair/Qgo-hi-Fjsde Xfer(QC): 6 Car Transfer (QC): 6 Does the Patient Walk: Yes Gait (FIM): 6 Gait distance (FIM): 3=150 ft Walk 10 feet (QC): 6 Walk 10ft-Uneven Surface(QC): 6 Walk 50ft with 2 Turns (QC): 6 Walk 150 ft (QC): 6 Gait Assistive Device: FWW Stairs (FIM): 5 # of Steps: 4 1 Step (curb) (QC): 6 4 Steps (QC): 6 12 Steps (QC): 88 Picking up an Object (QC): 4 PT Plan Problem List Problem List: Activity Tolerance, Functional Strength, Safety, Balance, Gait, Transfer, Bed Mobility Treatment/Plan Treatment Plan: Continue Plan of Care Treatment Plan: Bed Mobility, Education, Functional Activity Frank, Functional Strength, Group Therapy, Gait, Safety, Therapeutic Exercise, Transfers Treatment Duration: Jun 19, 2018 Frequency: At least 5 of 7 days/Wk (IRF) Estimated Hrs Per Day: 1.5 hours per day Patient and/or Family Agrees t: Yes Safety Risks/Education Patient Education: Gait Training, Transfer Techniques, Correct Positioning, Safety Issues Teaching Recipient: Patient Teaching Methods: Demonstration, Discussion Response to Teaching: Reinforcement Needed Time/GCodes Time In: 0810 Time Out: 08 Total Billed Treatment Time: 16 Total Billed Treatment 1 visit GT 16' SARAHI ARMSTRONG PT Jun 07, 2018 08:30
[2018-06-07] MEDS: OMEGA 3 (FISH OIL) 1000 MG CAP PO SCH (09:44)
[2018-06-07] MEDS: APIXABAN 5 MG (ELIQUIS) TABLET PO SCH ×2 (09:44→21:04)
[2018-06-07] MEDS: DILTIAZEM 300 MG (CARDIZEM CD) CAP PO SCH (09:44)
[2018-06-07] MEDS: POLYETHYLENE GLYCOL 17 GM (MIRALAX) PACK PO SCH (17:20)
[2018-06-07 17:21] VITALS: BP 152/75
[2018-06-07] MEDS: ATORVASTATIN 10 MG (LIPITOR) TABLET PO SCH (21:04)
[2018-06-07] MEDS: MELATONIN 3 MG TABLET PO SCH (21:04)
[2018-06-08] MEDS: PANTOPRAZOLE 20 MG TABLET (PROTONIX) PO SCH (05:22)
[2018-06-08] MEDS: LEVOTHYROXINE 50 MCG (LEVOTHROID) TAB PO SCH (05:22)
[2018-06-08] MEDS: CALCIUM CARB + VIT D 600 MG (CALCARB + D) TAB PO SCH ×2 (05:23→17:26)
[2018-06-08 05:36] VITALS: BP 150/71
[2018-06-08] MEDS: OMEGA 3 (FISH OIL) 1000 MG CAP PO SCH (08:33)
[2018-06-08] MEDS: APIXABAN 5 MG (ELIQUIS) TABLET PO SCH ×2 (08:33→20:24)
[2018-06-08] MEDS: DILTIAZEM 300 MG (CARDIZEM CD) CAP PO SCH (08:33)
--- NOTE | 2018-06-08 16:16 | Individualized Plan of Care ---
Individualized Plan of Care Rehab Nursing IPOC Order Admission Date Jun 05, 2018 at 09:40 Current Orders Orders Pt Evaluate/Treat Request (06/05/18 09:40) Request Ot Evaluate & Treat (06/05/18 09:40) Request For Cognitive Services (06/05/18 09:40) Admission Order(Inpt,Obs,Sdc) (06/05/18 10:38) Vital Signs: Routine (Order) 08,16,00 (06/05/18 10:38) Computer Tech-Inpt Rehab Con (06/05/18 10:38) Rehab Nursing Orders-Ipoc (06/05/18 10:38) General/Regular (06/05/18 Dinner) Turn And Reposition Q2HR (06/05/18 10:38) Intake & Output 06,14,22 (06/05/18 10:38) Weekly Weight (Lbs) WEEK (06/05/18 10:38) Code/Resuscitation (06/05/18 10:38) Consult Physician (06/05/18 10:41) Amitriptyline Tablet (Elavil Tablet) (06/05/18 21:00) Apixaban Tablet (Eliquis Tablet) (06/05/18 21:00) Atorvastatin Tablet (Lipitor) (06/05/18 21:00) Calcium Carbonate W/Vitamin D3 (Calcarb (06/05/18 17:00) Diltiazem Cd 24 Hr Capsule (Cardizem Cd (06/06/18 09:00) Levothyroxine Tablet (Synthroid Tablet) (06/06/18 06:30) [place] 3 Capsule (Fish Oil Capsule) (06/06/18 09:00) Pantoprazole Tablet (Protonix Tablet) (06/06/18 07:00) Atorvastatin Tablet (Lipitor Tablet) (06/05/18 21:00) Ambulate TID (06/05/18 10:57) Sequential Compression Device 08,20 (06/05/18 10:57) Dvt/Vte Risk - Notifiy Physici 08 (06/05/18 10:57) General/Regular (06/05/18 Lunch) Pt Mobility D/C Status (06/04/18 ) Patient Visit (06/05/18 ) Pt Eval Moderate Complexity (06/05/18 ) Functional Activities, Ea 15 (06/05/18 ) Polyethylene Glycol Powder Pkt (Miralax (06/05/18 21:00) Patient Visit (06/05/18 ) Speech Sound Lang Comp (06/05/18 ) Metoprolol Succinate (Xl) Tab (Toprol Xl (06/06/18 14:15) Metoprolol Succinate (Xl) Tab (Toprol Xl (06/07/18 09:00) Melatonin Tablet (Melatonin Tablet) (06/06/18 21:00) Patient Visit (06/06/18 ) Gait Training, Ea 15 Min (06/06/18 ) Functional Activities, Ea 15 (06/06/18 ) Exercise Therap, Ea 15 Min (06/06/18 ) Therapeutic, Group (06/06/18 ) Patient Visit (06/07/18 ) Gait Training, Ea 15 Min (06/07/18 ) Rehab Nursing Orders: Ongoing Assess. of Cognitive Status, Ongoing Assess. of Function Status, DVT Prophylaxis, Fall Prevention, Fluid/Electrolyte/Nutrition Mgmt, Infection Prevention, Medication Management & Education, Management of Risks & Complications, Management of Skin Intergrity, Nutrition Management, Pain Management, Patient/Family Support PT IPOC Problem List: Activity Tolerance, Functional Strength, Safety, Balance, Gait, Transfer, Bed Mobility Treatment Plan: Continue Plan of Care Bed Mobility, Education, Functional Activity Frank, Functional Strength, Group Therapy, Gait, Safety, Therapeutic Exercise, Transfers Treatment Duration: Jun 19, 2018 Frequency: At least 5 of 7 days/Wk (IRF) Estimated Hrs Per Day: 1.5 hours per day OT IPOC Problems: Decreased Activ Tolerance, Dependent Transfers, Impaired I ADL's, Impaired Self-Care Skills OT Treatment, Training and Edu: Yes Plan of Care: ADL Retraining, Functional Mobility, Group Exercise/Act as Ind, UE Funct Exercise/Act Treatment Duration: Jun 19, 2018 Frequency: At least 5 of 7 days/Wk (IRF) Estimated Hrs Per Day: 1.[address] IPOC Speech Therapy Treatment Plan: Modify Plan, See Comments Treatment Duration: Jun 19, 2018 Frequency: 5 times per week Estimated Hrs Per Day: .5 hour per day Computer Tech/Case Mgmt Computer Tech/Case Managemen: Discharge Planning, Patient/Family Counseling Dietitian/Bed Control Specialist Dietitian/Bed Control Specialist to monitor nutritional status and make changes and/or recommendations as needed and work with speech pathology on dietary upgrades as the occur. Physician IPOC Medical Issues being managed closely and that require the 24 hour availability of a physician: cONCUSIION WITH MEMORY LOSS lEFT HIP AND ELBOW CONTUSION htn uti cad Medical Issues: DVT Prophylaxis, Falls Precautions, Infection Protection, Pain Management, Other (List) ( PER ABOVE) Brief Synthesis of Preadmission Screen, Post-Admission Evaluation, and Therapy Evaluations:87 YO FEMALE WHO FELL WITH RESULTING cONCUSSION AND MEMORY LOSS WELL HIP AND ELBOW CONTTUSION WITH A RESULTING DECLINE IN FUNCTIONAL iNDEPENDENCE.hAD BEEN iNDEPENDENT PRIOR TO THIS hAS A DAUGHTER WHO LIVES IN [facility] PER ABOVE Medical Prognosis: gOOD Anticipated Length of Stay: [id number] mODIFIED iNDEPENDENT TO SUPERVISION FOR ADLS AND MOBILITY SKILLS Anticipated d/c Destination: [facility] WITH [facility] OR HOME WITH FAMILY VIELKA MORLEY MD Jun 08, 2018 16:16
[2018-06-08] MEDS: POLYETHYLENE GLYCOL 17 GM (MIRALAX) PACK PO SCH (17:43)
[2018-06-08 18:28] VITALS: BP 153/67
[2018-06-08] MEDS: ATORVASTATIN 10 MG (LIPITOR) TABLET PO SCH (20:24)
[2018-06-08] MEDS: MELATONIN 3 MG TABLET PO SCH (20:24)
[2018-06-09 05:18] VITALS: BP 169/74
[2018-06-09] MEDS: PANTOPRAZOLE 20 MG TABLET (PROTONIX) PO SCH (06:24)
[2018-06-09] MEDS: LEVOTHYROXINE 50 MCG (LEVOTHROID) TAB PO SCH (06:24)
[2018-06-09] MEDS: CALCIUM CARB + VIT D 600 MG (CALCARB + D) TAB PO SCH ×2 (06:25→17:10)
[2018-06-09] MEDS: DILTIAZEM 300 MG (CARDIZEM CD) CAP PO SCH (08:47)
[2018-06-09] MEDS: APIXABAN 5 MG (ELIQUIS) TABLET PO SCH ×2 (08:47→20:26)
[2018-06-09] MEDS: OMEGA 3 (FISH OIL) 1000 MG CAP PO SCH (08:47)
--- NOTE | 2018-06-09 10:12 | Occupational Ther Daily Note ---
OT Current Status-Daily Note Subjective Pt alert, sitting in recliner. Pt agrees to therapy. No c/o pain at this time. Mental Status/Objective Patient Orientation: Person, Time Functional [place] Measure 0=Not Assessed/NA 4=Minimal Assistance 1=Total Assistance 5=Supervision or Setup 2=Maximal Assistance 6=Modified [place] 3=Moderate Assistance 7=Complete [place] Attachments: Other-See Comments (PICC) ADL-Treatment Functional [place] Measure 0=Not Assessed/NA 4=Minimal Assistance 1=Total Assistance 5=Supervision or Setup 2=Maximal Assistance 6=Modified [place] 3=Moderate Assistance 7=Complete IndependenceIRFPAI Quality Coding Scale 6 Independent with activity with or without an assistive device 5 Patient requires set up or clean up by helper. Patient completes activity by themselves 4 Supervision or touching assist (CGA). [place] provide cues , steadying assist 3 The helper provides less than half the effort to complete the activity 2 The helper provides more than half the effort to complete the activity 1 Dependent. The helper does all the effort to complete an activity 7 Patient refused to complete or attempt activity 9 The patient did not perform the activity before the current illness or injury 88 Not attempted due to Medical conditions or safety concerns Eating (FIM): 6 (Dentures. Opens packages/containers by self, uses regular utensils to feed self.) Eating (QC): 6 Grooming (FIM): 5 (Close SBA while standing at sink with FWW to complete grooming.) Oral Hygiene (QC): 4 Bathing (FIM): 5 (Using grabbar, hand held shower and shower bench pt is able to complete bathing with SBA. Assist to adjust water.) Bathing Location: L Arm, R Arm, L Upper Leg, R Upper Leg, L Lower Leg ( including foot), R Lower Leg (including foot), Chest, Abdomen, Buttocks, Perineal Area Shower/Bathe Self (QC): 4 Upper Body (FIM): 5 (Set up then is able to complete by self.) Upper Body Dressing (QC): 5 Lower Body Dressing (FIM): 5 (Set up then able to complete with CGA to hike pants over hips. Pt had multiple LOB backwards. Pt stated that she gets dizzy when head is down to hike pants over hips.) Lower Body Dressing (QC): 4 On/Off Footwear (QC): 5 Toileting (FIM): 5 (Close SBA to complete toileting for safety.) Toileting Hygiene (QC): 4 Toilet/Commode Transfer (FIM): 5 (SBA using FWW, grabbar and BSC.) Toilet Transfer (QC): 4 Tub Transfer(FIM): 3 (Pt has tub shower at home. Pt unable to lift feet into tub at this time. Educating pt on lifting lower leg backward to decrease amount of movement required. Pt continues to need reinforcement to complete this way.) Shower Transfer(FIM): 4 (CGA and verbal directions to transfer into shower.) Other Treatment Pt completed fine motor task with nut/bolt to increase strength of client project coordinator and pinch strength for daily functional tasks. After therapy, pt sitting in recliner with call light/phone in reach. All needs met in room. OT Short Term Goals Short Term Goals Time Frame: Jun 12, 2018 Eating(FIM): 5 Grooming(FIM): 5 Bathing(FIM): 5 Upper Body Dressing(FIM): 5 Lower Body Dressing(FIM): 5 Toileting(FIM): 5 Transfers (B,C,W/C) (FIM): 5 Toilet/Commode Transfer(FIM): 5 Shower Transfer(FIM): 5 Comprehension(FIM): 6 Expression(FIM): 7 Social Interaction(FIM): 7 Problem Solving(FIM): 5 Memory(FIM): 5 Additional Short Term Goals: 1-Demonstrate ADL Tasks, 2-Verbalize Understanding , 3-ImproveStrength/Frank 1=Demonstrate adherence to instructed precautions during ADL tasks. 2=Patient will verbalize/demonstrate understanding of assistive devices/ modifications for ADL. 3=Patient will improve strength/tolerance for activity to enable patient to perform ADL's. OT Elementary Art Teacher Goals Elementary Art Teacher Goals Time Frame: Jun 19, 2018 Eating (FIM): 6 Eating (QC): 6 Groomin Oral Hygiene (QC): 6 Bathing(FIM): 6 Shower/Bathe Self (QC): 6 Upper Body Dressing(FIM): 6 Upper Body Dressing (QC): 6 Lower Body Dressing(FIM): 6 Lower Body Dressing (QC): 6 On/Off Footwear (QC): 6 Toileting(FIM): 6 Toileting Hygiene (QC): 6 Transfers (B,C,W/C) (FIM): 6 Toilet/Commode Transfer(FIM): 6 Toilet/Commode Transfer (QC): 6 Shower Transfer(FIM): 6 Comprehension(FIM): 6 Expression (FIM): 7 Social Interaction(FIM): 7 Problem Solving(FIM): 5 Memory(FIM): 6 Additional Goals: 1-Demonstrate ADL Tasks, 2-Verbalize Understanding, 3- ImproveStrength/Frank 1=Demonstrate adherence to instructed precautions during ADL tasks. 2=Patient will verbalize/demonstrate understanding of assistive devices/ modifications for ADL. 3=Patient will improve strength/tolerance for activity to enable patient to perform ADL's. OT Education/Plan Discharge Recommendations Plan/Recommendations: Continue POC Treatment Plan/Plan of Care Patient would benefit from OT for education, treatment and training to promote independence in ADL's, mobility, safety and/or upper extremity function for ADL' s. Plan of Care: ADL Retraining, Functional Mobility, Group Exercise/Act as Ind, UE Funct Exercise/Act Treatment Duration: Jun 19, 2018 Frequency: At least 5 of 7 days/Wk (IRF) Estimated Hrs Per Day: 1.5 hours per day Agreement: Yes Rehab Potential: Good Time/GCodes Start Time: 08:30 Stop Time: 10:00 Total Time Billed (hr/min): 90 Billed Treatment Time 1 visit-ADL 5 (70 min) FA 1 (20 min) GERARDO JAMES Jun 09, 2018 10:12
--- NOTE | 2018-06-09 12:03 | Physical Therapy Daily Note ---
PT Daily Note-Current Subjective Pt sitting in recliner upon arrival. Pt agrees to PT. Pain Location: No Pain Reported Mental Status Patient Orientation: Person, Place, Situation Transfers Functional [place] Measure 0=Not Assessed/NA 4=Minimal Assistance 1=Total Assistance 5=Supervision or Setup 2=Maximal Assistance 6=Modified [place] 3=Moderate Assistance 7=Complete IndependenceIRFPAI Quality Coding Scale 6 Independent with activity with or without an assistive device 5 Patient requires set up or clean up by helper. Patient completes activity by themselves 4 Supervision or touching assist (CGA). [place] provide cues , steadying assist 3 The helper provides less than half the effort to complete the activity 2 The helper provides more than half the effort to complete the activity 1 Dependent. The helper does all the effort to complete an activity 7 Patient refused to complete or attempt activity 9 The patient did not perform the activity before the current illness or injury 88 Not attempted due to Medical conditions or safety concerns Scootin Sit to/from Stand: 5 Sit to Stand (QC): 5 Weight Bearing Right Lower Extremity: Right Full Weight Bearing Left Lower Extremity: Left Full Weight Bearing Gait Training Does the Patient Walk?: Yes Distance (FIM): 3=150 ft Distance: 200' Walk 10 feet (QC): 5 Walk 50 ft with 2 Turns(QC): 5 Walk 150 ft (QC): 5 Gait Level of Assist: 5 Gait Persons Needed: 1 Gait Assistive Device: FWW Pt walks with slow blanca. Wheelchair Training Does the Pt Use a Wheelchair?: No Exercises Standing: Hip Abduction, Hamstring curls, Heel/toe raises, Marching, Mini squats Standing Reps: 15 Treatments Pt transfers from recliner to standing using FWW at [facility]. Pt uses restroom then ambulates in hallway using FWW at [facility]. Pt completes Standing Ex at //bars with a couple short rest breaks. Pt ambulates back to room and rests in recliner at end of tx with all needs met, including call light & phone in hand. Assessment Current Status: Good Progress Pt fatigues and needs occasional rest breaks. Pt still has moments of off balance when completing dynamic standing activities. PT Short Term Goals Short Term Goals Time Frame: Jun 12, 2018 Transfers (B,C,W/C) (FIM): 5 Gait (FIM): 5 PT Front Office Assistant Goals Custodial Goals PT Front Office Assistant Goals Time Frame: Jun 19, 2018 Transfers (B,C,W/C) (FIM): 6 Sit to Lying (QC): 6 Lying-Sitting on Side/Bed(QC): 6 Sit to Stand (QC): 6 Roll Left to Right (QC): 6 Chair/Xwk-qj-Ybgrp Xfer(QC): 6 Car Transfer (QC): 6 Does the Patient Walk: Yes Gait (FIM): 6 Gait distance (FIM): 3=150 ft Walk 10 feet (QC): 6 Walk 10ft-Uneven Surface(QC): 6 Walk 50ft with 2 Turns (QC): 6 Walk 150 ft (QC): 6 Gait Assistive Device: FWW Stairs (FIM): 5 # of Steps: 4 1 Step (curb) (QC): 6 4 Steps (QC): 6 12 Steps (QC): 88 Picking up an Object (QC): 4 PT Plan Problem List Problem List: Activity Tolerance, Functional Strength, Safety, Balance Treatment/Plan Treatment Plan: Continue Plan of Care Treatment Plan: Bed Mobility, Education, Functional Activity Frank, Functional Strength, Group Therapy, Gait, Safety, Therapeutic Exercise, Transfers Treatment Duration: Jun 19, 2018 Frequency: At least 5 of 7 days/Wk (IRF) Estimated Hrs Per Day: 1.5 hours per day Patient and/or Family Agrees t: Yes Safety Risks/Education Patient Education: Gait Training, Transfer Techniques, Correct Positioning, Safety Issues Teaching Recipient: Patient Teaching Methods: Discussion Response to Teaching: Verbalize Understanding Time/GCodes Time In: 1100 Time Out: 1145 Total Billed Treatment Time: 45 Total Billed Treatment 1, FA (15m), GT (15m) & EX (15m) G Codes Necessary: THAIS Chacon PROVIDER ENGAGEMENT EXECUTIVE Jun 09, 2018 12:03
--- NOTE | 2018-06-09 14:39 | Physical Therapy Daily Note ---
PT Daily Note-Current Subjective Pt sitting in recliner upon arrival. Pt agrees to PT. Pain Location: No Pain Reported Mental Status Patient Orientation: Person, Place, Situation Transfers Functional [place] Measure 0=Not Assessed/NA 4=Minimal Assistance 1=Total Assistance 5=Supervision or Setup 2=Maximal Assistance 6=Modified [place] 3=Moderate Assistance 7=Complete IndependenceIRFPAI Quality Coding Scale 6 Independent with activity with or without an assistive device 5 Patient requires set up or clean up by helper. Patient completes activity by themselves 4 Supervision or touching assist (CGA). [place] provide cues , steadying assist 3 The helper provides less than half the effort to complete the activity 2 The helper provides more than half the effort to complete the activity 1 Dependent. The helper does all the effort to complete an activity 7 Patient refused to complete or attempt activity 9 The patient did not perform the activity before the current illness or injury 88 Not attempted due to Medical conditions or safety concerns Scootin Sit to/from Stand: 5 Sit to Stand (QC): 5 Weight Bearing Right Lower Extremity: Right Full Weight Bearing Left Lower Extremity: Left Full Weight Bearing Gait Training Does the Patient Walk?: Yes Distance (FIM): 3=150 ft Distance: 150' Walk 10 feet (QC): 5 Walk 50 ft with 2 Turns(QC): 5 Walk 150 ft (QC): 5 Gait Level of Assist: 5 Gait Persons Needed: 5 Gait Assistive Device: FWW Pt walks with slow blanca. Pt needs occasional rest breaks with extended distances. Wheelchair Training Does the Pt Use a Wheelchair?: No Exercises NuStep Minutes: 12 NuStep Workload: 4 Treatments Pt transfers from recliner to standing using FWW at [facility]. Pt ambulates in hallway using FWW at [facility]. Pt uses NuStep for 12m at 4. Pt ambulates back to room to rest in recliner at end of tx with all needs met, including call light & phone in hand. Assessment Current Status: Good Progress Pt still has moments when pt gets off balance especially during dynamic standing activities. PT Short Term Goals Short Term Goals Time Frame: Jun 12, 2018 Transfers (B,C,W/C) (FIM): 5 Gait (FIM): 5 PT Alf Goals Alf Goals PT Alf Goals Time Frame: Jun 19, 2018 Transfers (B,C,W/C) (FIM): 6 Sit to Lying (QC): 6 Lying-Sitting on Side/Bed(QC): 6 Sit to Stand (QC): 6 Roll Left to Right (QC): 6 Chair/Ens-ln-Kwhta Xfer(QC): 6 Car Transfer (QC): 6 Does the Patient Walk: Yes Gait (FIM): 6 Gait distance (FIM): 3=150 ft Walk 10 feet (QC): 6 Walk 10ft-Uneven Surface(QC): 6 Walk 50ft with 2 Turns (QC): 6 Walk 150 ft (QC): 6 Gait Assistive Device: FWW Stairs (FIM): 5 # of Steps: 4 1 Step (curb) (QC): 6 4 Steps (QC): 6 12 Steps (QC): 88 Picking up an Object (QC): 4 PT Plan Problem List Problem List: Activity Tolerance, Functional Strength, Balance Treatment/Plan Treatment Plan: Continue Plan of Care Treatment Plan: Bed Mobility, Education, Functional Activity Frank, Functional Strength, Group Therapy, Gait, Safety, Therapeutic Exercise, Transfers Treatment Duration: Jun 19, 2018 Frequency: At least 5 of 7 days/Wk (IRF) Estimated Hrs Per Day: 1.5 hours per day Patient and/or Family Agrees t: Yes Safety Risks/Education Patient Education: Gait Training, Transfer Techniques, Correct Positioning, Safety Issues Teaching Recipient: Patient Teaching Methods: Discussion Response to Teaching: Verbalize Understanding Time/GCodes Time In: 1315 Time Out: 1345 Total Billed Treatment Time: 30 Total Billed Treatment 1, GT (10m) & EX (20m) G Codes Necessary: THAIS Chacon SHIP KEEPER Jun 09, 2018 14:39
[2018-06-09 19:21] VITALS: BP 132/73
--- NOTE | 2018-06-09 19:41 | Progress Note (SOAP) ---
Subjective Date Seen by Provider: Jun 09, 2018 Time Seen by Provider: 12:30 Subjective/Events-last exam Fwup fall with head trauma, left elbow contusion and left hip contusion, dizziness, HTN, history of atrial fibrillation, UTI. Feeling better. Wants to go home. Objective Exam Vital Signs Date Time Temp Pulse Resp B/P (MAP) Pulse Ox O2 Delivery O2 Flow Rate FiO2 06/09/18 19:21 97.3 62 20 132/73 (92) 96 Room Air 06/09/18 09:00 Room Air 06/09/18 05:18 97.1 61 20 169/74 (105) 93 Room Air 06/08/18 20:19 Room Air I & O 06/09/18 07:00 Intake Total 714 ml Balance 714 ml Capillary Refill : General Appearance: No Apparent Distress Respiratory: Lungs Clear Cardiovascular: Regular Rate, Rhythm Gastrointestinal: normal bowel sounds, non tender, soft Extremity: Non Tender, No Calf Tenderness, No Pedal Edema Neurologic/Psychiatric: Alert, Oriented x3 Assessment/Plan Assessment/Plan Assess & Plan/Chief Complaint 1. Fall with Head Trauma--rehab for PT/OT and strengthening 2. Left Elbow contusion--stable 3. Left Hip Contusion--stable 4. Hypertension--back on home meds and BP improved with low dose of metoprolol 5. UTI--on rocephin 6. History of Atrial Fibrillation--in NSR 7. Insomnia--DC elavil and add melatonin as the elavil may be contributing to grogginess and the dizziness 8. Dizziness--resolved Clinical Quality Measures DVT/VTE Risk/Contraindication: Risk Factor Score Per Nursin RFS Level Per Nursing on Admit: 4+=Very High NALINI ZARCO DO Jun 09, 2018 7:41 pm
[2018-06-09] MEDS: MELATONIN 3 MG TABLET PO SCH (20:26)
[2018-06-09] MEDS: ATORVASTATIN 10 MG (LIPITOR) TABLET PO SCH (20:26)
[2018-06-09] MEDS: POLYETHYLENE GLYCOL 17 GM (MIRALAX) PACK PO SCH (20:26)
[2018-06-10 06:00] VITALS: BP 151/73
[2018-06-10] MEDS: PANTOPRAZOLE 20 MG TABLET (PROTONIX) PO SCH (06:09)
[2018-06-10] MEDS: LEVOTHYROXINE 50 MCG (LEVOTHROID) TAB PO SCH (06:09)
[2018-06-10] MEDS: CALCIUM CARB + VIT D 600 MG (CALCARB + D) TAB PO SCH ×2 (06:13→18:08)
[2018-06-10] MEDS: DILTIAZEM 300 MG (CARDIZEM CD) CAP PO SCH (07:56)
[2018-06-10] MEDS: OMEGA 3 (FISH OIL) 1000 MG CAP PO SCH (07:56)
[2018-06-10] MEDS: APIXABAN 5 MG (ELIQUIS) TABLET PO SCH ×2 (07:56→20:30)
--- NOTE | 2018-06-10 08:55 | Occupational Ther Daily Note ---
OT Current Status-Daily Note Subjective Pt alert, sitting in recliner. Pt agrees to therapy. No c/o pain at this time. Mental Status/Objective Patient Orientation: Person, Place, Time, Situation Functional [place] Measure 0=Not Assessed/NA 4=Minimal Assistance 1=Total Assistance 5=Supervision or Setup 2=Maximal Assistance 6=Modified [place] 3=Moderate Assistance 7=Complete [place] ADL-Treatment Pt declines shower today. Pt did ambulated to retrieve clothing and take to recliner. Pt able to don/doff clothing with supervision. Pt is progressing with balance during ADLs. Functional [place] Measure 0=Not Assessed/NA 4=Minimal Assistance 1=Total Assistance 5=Supervision or Setup 2=Maximal Assistance 6=Modified [place] 3=Moderate Assistance 7=Complete IndependenceIRFPAI Quality Coding Scale 6 Independent with activity with or without an assistive device 5 Patient requires set up or clean up by helper. Patient completes activity by themselves 4 Supervision or touching assist (CGA). [place] provide cues , steadying assist 3 The helper provides less than half the effort to complete the activity 2 The helper provides more than half the effort to complete the activity 1 Dependent. The helper does all the effort to complete an activity 7 Patient refused to complete or attempt activity 9 The patient did not perform the activity before the current illness or injury 88 Not attempted due to Medical conditions or safety concerns Upper Body (FIM): 5 Upper Body Dressing (QC): 5 Lower Body Dressing (FIM): 5 Lower Body Dressing (QC): 4 On/Off Footwear (QC): 6 Other Treatment Pt then ambulated to therapy gym to complete arm bike 10 lewis resistance 15 min duration to increase strength and activity tolerance for daily functional tasks, 2 rest breaks. Pt then completed resistive pegs to increase strength of workforce consultant and pinch. Pt then ambulated back to room and sat in recliner after therapy. Call light/phone in reach. All needs met in room. OT Short Term Goals Short Term Goals Time Frame: Jun 12, 2018 Eating(FIM): 5 Grooming(FIM): 5 Bathing(FIM): 5 Upper Body Dressing(FIM): 5 Lower Body Dressing(FIM): 5 Toileting(FIM): 5 Transfers (B,C,W/C) (FIM): 5 Toilet/Commode Transfer(FIM): 5 Shower Transfer(FIM): 5 Comprehension(FIM): 6 Expression(FIM): 7 Social Interaction(FIM): 7 Problem Solving(FIM): 5 Memory(FIM): 5 Additional Short Term Goals: 1-Demonstrate ADL Tasks, 2-Verbalize Understanding , 3-ImproveStrength/Frank 1=Demonstrate adherence to instructed precautions during ADL tasks. 2=Patient will verbalize/demonstrate understanding of assistive devices/ modifications for ADL. 3=Patient will improve strength/tolerance for activity to enable patient to perform ADL's. OT Softball Winder Goals Softball Winder Goals Time Frame: Jun 19, 2018 Eating (FIM): 6 Eating (QC): 6 Groomin Oral Hygiene (QC): 6 Bathing(FIM): 6 Shower/Bathe Self (QC): 6 Upper Body Dressing(FIM): 6 Upper Body Dressing (QC): 6 Lower Body Dressing(FIM): 6 Lower Body Dressing (QC): 6 On/Off Footwear (QC): 6 Toileting(FIM): 6 Toileting Hygiene (QC): 6 Transfers (B,C,W/C) (FIM): 6 Toilet/Commode Transfer(FIM): 6 Toilet/Commode Transfer (QC): 6 Shower Transfer(FIM): 6 Comprehension(FIM): 6 Expression (FIM): 7 Social Interaction(FIM): 7 Problem Solving(FIM): 5 Memory(FIM): 6 Additional Goals: 1-Demonstrate ADL Tasks, 2-Verbalize Understanding, 3- ImproveStrength/Frank 1=Demonstrate adherence to instructed precautions during ADL tasks. 2=Patient will verbalize/demonstrate understanding of assistive devices/ modifications for ADL. 3=Patient will improve strength/tolerance for activity to enable patient to perform ADL's. OT Education/Plan Discharge Recommendations Plan/Recommendations: Continue POC Treatment Plan/Plan of Care Patient would benefit from OT for education, treatment and training to promote independence in ADL's, mobility, safety and/or upper extremity function for ADL' s. Plan of Care: ADL Retraining, Functional Mobility, Group Exercise/Act as Ind, UE Funct Exercise/Act Treatment Duration: Jun 19, 2018 Frequency: At least 5 of 7 days/Wk (IRF) Estimated Hrs Per Day: 1.5 hours per day Agreement: Yes Rehab Potential: Good Time/GCodes Start Time: 08:00 Stop Time: 09:00 Total Time Billed (hr/min): 60 Billed Treatment Time 1 visit-ADL 3 (38 min) EX 1 (22 min) GERARDO JAMES Jun 10, 2018 08:55
--- NOTE | 2018-06-10 10:02 | Physical Therapy Daily Note ---
PT Daily Note-Current Subjective Pt. states she wants to go home and feels great. States she has a system for safety and people who check on her regularly Pain Numeric Pain Scale: 0-No Pain Mental Status Patient Orientation: Normal For Age Transfers Functional [place] Measure 0=Not Assessed/NA 4=Minimal Assistance 1=Total Assistance 5=Supervision or Setup 2=Maximal Assistance 6=Modified [place] 3=Moderate Assistance 7=Complete IndependenceIRFPAI Quality Coding Scale 6 Independent with activity with or without an assistive device 5 Patient requires set up or clean up by helper. Patient completes activity by themselves 4 Supervision or touching assist (CGA). [place] provide cues , steadying assist 3 The helper provides less than half the effort to complete the activity 2 The helper provides more than half the effort to complete the activity 1 Dependent. The helper does all the effort to complete an activity 7 Patient refused to complete or attempt activity 9 The patient did not perform the activity before the current illness or injury 88 Not attempted due to Medical conditions or safety concerns Transfers (B, C, W/C) (FIM): 6 Scootin Rollin Roll Left to Right (QC): 5 Supine to/from Sit: 6 Sit to/from Stand: 6 Sit to Lying (QC): 5 Sit to Stand (QC): 5 Chair/Igw-di-Rhhyg Xfer(QC): 5 Bed to/from Chair: 5 Car Transfer (QC): 5 Weight Bearing Right Lower Extremity: Right Full Weight Bearing Left Lower Extremity: Left Full Weight Bearing Gait Training Does the Patient Walk?: Yes Gait (FIM): 6 Distance (FIM): 3=150 ft (200x2) Walk 10 feet (QC): 5 Walk 50 ft with 2 Turns(QC): 5 Walk 150 ft (QC): 5 Walking 10ft/uneven surface-QC: 5 Gait Level of Assist: 5 Gait Persons Needed: 0 Gait Assistive Device: FWW Stair Training Stair Training: Handrails/: 2 handrails Stairs (FIM): 5 #of Steps: 4 1 Step (curb) (QC): 5 4 Steps (QC): 5 Stairs: Pattern: Step to Level of Assist: 5 reviewed sequence and safety Exercises Supine Ex: Bridging, Ankle pumps, Quad Set, Rolling, Glut sets, Heel Slides, Short Arc Quads, Scooting, Straight leg raise, Hip abd/add Supine Reps: 15 Seated Therapy Exercises: Ankle pumps, Sit to stand, Hip flexion, Hip abd/add Seated Reps: 10 Assessment Current Status: Good Progress has good support at home, is agreeable to PT services, wants to DC soon PT Short Term Goals Short Term Goals Time Frame: Jun 12, 2018 Transfers (B,C,W/C) (FIM): 5 Gait (FIM): 5 PT Half-Way Goals Controller Mechanic Goals PT Controller Mechanic Goals Time Frame: Jun 19, 2018 Transfers (B,C,W/C) (FIM): 6 Sit to Lying (QC): 6 Lying-Sitting on Side/Bed(QC): 6 Sit to Stand (QC): 6 Roll Left to Right (QC): 6 Chair/Rdx-tm-Fehyw Xfer(QC): 6 Car Transfer (QC): 6 Does the Patient Walk: Yes Gait (FIM): 6 Gait distance (FIM): 3=150 ft Walk 10 feet (QC): 6 Walk 10ft-Uneven Surface(QC): 6 Walk 50ft with 2 Turns (QC): 6 Walk 150 ft (QC): 6 Gait Assistive Device: FWW Stairs (FIM): 5 # of Steps: 4 1 Step (curb) (QC): 6 4 Steps (QC): 6 12 Steps (QC): 88 Picking up an Object (QC): 4 PT Plan Treatment/Plan Treatment Plan: Continue Plan of Care Treatment Plan: Bed Mobility, Education, Functional Activity Frank, Functional Strength, Group Therapy, Gait, Safety, Therapeutic Exercise, Transfers Treatment Duration: Jun 19, 2018 Frequency: At least 5 of 7 days/Wk (IRF) Estimated Hrs Per Day: 1.5 hours per day Patient and/or Family Agrees t: Yes Safety Risks/Education Patient Education: Gait Training, Transfer Techniques, Steps Teaching Recipient: Patient Teaching Methods: Demonstration, Discussion Response to Teaching: Verbalize Understanding, Return Demonstration, Reinforcement Needed Time/GCodes Time In: 900 Time Out: 1000 Total Billed Treatment Time: 60 Total Billed Treatment 1,FA25m,GT15m,EX20m G Codes Necessary: HAMIDA Zhang PRODUCTION LINE TECHNICIAN Jun 10, 2018 10:01
--- NOTE | 2018-06-10 11:52 | Occupational Ther Daily Note ---
OT Current Status-Daily Note Subjective Pt in bathroom. Pt agrees to therapy. No c/o pain. Mental Status/Objective Patient Orientation: Person, Place, Time, Situation Functional [place] Measure 0=Not Assessed/NA 4=Minimal Assistance 1=Total Assistance 5=Supervision or Setup 2=Maximal Assistance 6=Modified [place] 3=Moderate Assistance 7=Complete [place] ADL-Treatment Functional [place] Measure 0=Not Assessed/NA 4=Minimal Assistance 1=Total Assistance 5=Supervision or Setup 2=Maximal Assistance 6=Modified [place] 3=Moderate Assistance 7=Complete IndependenceIRFPAI Quality Coding Scale 6 Independent with activity with or without an assistive device 5 Patient requires set up or clean up by helper. Patient completes activity by themselves 4 Supervision or touching assist (CGA). [place] provide cues , steadying assist 3 The helper provides less than half the effort to complete the activity 2 The helper provides more than half the effort to complete the activity 1 Dependent. The helper does all the effort to complete an activity 7 Patient refused to complete or attempt activity 9 The patient did not perform the activity before the current illness or injury 88 Not attempted due to Medical conditions or safety concerns Grooming (FIM): 5 (Standing at sink with supervision, pt able to complete own grooming.) Oral Hygiene (QC): 4 Toileting (FIM): 6 (Using FWW and grabbar, pt able to complete toileting.) Toileting Hygiene (QC): 6 Transfers (B, C, W/C) (FIM): 6 (Using FWW) Toilet/Commode Transfer (FIM): 6 (Using BSC and FWW, pt able to complete transfer.) Toilet Transfer (QC): 6 OT Short Term Goals Short Term Goals Time Frame: Jun 12, 2018 Eating(FIM): 5 Grooming(FIM): 5 Bathing(FIM): 5 Upper Body Dressing(FIM): 5 Lower Body Dressing(FIM): 5 Toileting(FIM): 5 Transfers (B,C,W/C) (FIM): 5 Toilet/Commode Transfer(FIM): 5 Shower Transfer(FIM): 5 Comprehension(FIM): 6 Expression(FIM): 7 Social Interaction(FIM): 7 Problem Solving(FIM): 5 Memory(FIM): 5 Additional Short Term Goals: 1-Demonstrate ADL Tasks, 2-Verbalize Understanding , 3-ImproveStrength/Frank 1=Demonstrate adherence to instructed precautions during ADL tasks. 2=Patient will verbalize/demonstrate understanding of assistive devices/ modifications for ADL. 3=Patient will improve strength/tolerance for activity to enable patient to perform ADL's. OT Leasing Director Goals Leasing Director Goals Time Frame: Jun 19, 2018 Eating (FIM): 6 Eating (QC): 6 Groomin Oral Hygiene (QC): 6 Bathing(FIM): 6 Shower/Bathe Self (QC): 6 Upper Body Dressing(FIM): 6 Upper Body Dressing (QC): 6 Lower Body Dressing(FIM): 6 Lower Body Dressing (QC): 6 On/Off Footwear (QC): 6 Toileting(FIM): 6 Toileting Hygiene (QC): 6 Transfers (B,C,W/C) (FIM): 6 Toilet/Commode Transfer(FIM): 6 Toilet/Commode Transfer (QC): 6 Shower Transfer(FIM): 6 Comprehension(FIM): 6 Expression (FIM): 7 Social Interaction(FIM): 7 Problem Solving(FIM): 5 Memory(FIM): 6 Additional Goals: 1-Demonstrate ADL Tasks, 2-Verbalize Understanding, 3- ImproveStrength/Frank 1=Demonstrate adherence to instructed precautions during ADL tasks. 2=Patient will verbalize/demonstrate understanding of assistive devices/ modifications for ADL. 3=Patient will improve strength/tolerance for activity to enable patient to perform ADL's. OT Education/Plan Discharge Recommendations Plan/Recommendations: Continue POC Treatment Plan/Plan of Care Patient would benefit from OT for education, treatment and training to promote independence in ADL's, mobility, safety and/or upper extremity function for ADL' s. Plan of Care: ADL Retraining, Functional Mobility, Group Exercise/Act as Ind, UE Funct Exercise/Act Treatment Duration: Jun 19, 2018 Frequency: At least 5 of 7 days/Wk (IRF) Estimated Hrs Per Day: 1.5 hours per day Agreement: Yes Rehab Potential: Good Time/GCodes Start Time: 11:10 Stop Time: 11:25 Total Time Billed (hr/min): 15 Billed Treatment Time 1 visit-ADL 1 (15 min) GERARDO JAMES Jun 10, 2018 11:52
--- NOTE | 2018-06-10 12:53 | Speech Therapy Daily Note ---
Speech Daily Progress Note Subjective Date Seen by Provider: Jun 10, 2018 Time Seen by Provider: 10:30 Pt pleasant and cooperative. Pain Numeric Pain Scale: 0-No Pain Objective MEMORY - Picture recall after 20 minutes was 60% accurate. Pt had more detail to it than previous pictures. Pt taught a new learning activity and will determine what she recalls in 24 hours. Assessment Assessment Current Status: Good Progress Treatment Plan Continue Plan of Care Communication Comprehension: 6 Expression: 7 Social Cognition Social Interaction: 7 Problem Solvin Memory: 4 Speech Short Term Goals Short Term Goals Short Term Goals Pt's accuracy for recall for various memory activities will be at least 85% accurate. Time Frame-ST week Comprehension: 6 Expression: 7 Social Interaction: 7 Problem Solvin Memory: 5 Speech Doctor Chiropractic Goals Doctor Chiropractic Goals Pt will exhibit functional memory for independence in the home. Comprehension: 6 Expression: 7 Social Interaction: 7 Problem Solvin Memory: 6 Speech-Plan Treatment Plan Speech Therapy Treatment Plan: Continue Plan of Care Continue with current POC Treatment Duration: Jun 19, 2018 Frequency: 5 times per week Estimated Hrs Per Day: .5 hour per day Rehab Potential: Good Time Speech Therapy Time In: 10:00 Speech Therapy Time Out: 10:30 Total Billed Time: 30 Billed Treatment Time 1, ROYCE Mijares Jun 10, 2018 12:53
--- NOTE | 2018-06-10 13:59 | Physical Therapy Daily Note ---
PT Daily Note-Current Subjective Pt. agrees to Rx. States she is very ready to DC tomorrow Pain Numeric Pain Scale: 0-No Pain Mental Status Patient Orientation: Normal For Age Transfers Functional [place] Measure 0=Not Assessed/NA 4=Minimal Assistance 1=Total Assistance 5=Supervision or Setup 2=Maximal Assistance 6=Modified [place] 3=Moderate Assistance 7=Complete IndependenceIRFPAI Quality Coding Scale 6 Independent with activity with or without an assistive device 5 Patient requires set up or clean up by helper. Patient completes activity by themselves 4 Supervision or touching assist (CGA). [place] provide cues , steadying assist 3 The helper provides less than half the effort to complete the activity 2 The helper provides more than half the effort to complete the activity 1 Dependent. The helper does all the effort to complete an activity 7 Patient refused to complete or attempt activity 9 The patient did not perform the activity before the current illness or injury 88 Not attempted due to Medical conditions or safety concerns all TRFs SBA to Mod I Weight Bearing Right Lower Extremity: Right Full Weight Bearing Left Lower Extremity: Left Full Weight Bearing Gait Training FWW 200ft x 2 Mod I Exercises Seated Therapy Exercises: Ankle pumps, Sit to stand, Long arc quads, Hip flexion, Hip abd/add Seated Reps: 10 NuStep Minutes: 12 NuStep Workload: 2 Assessment Current Status: Excellent Progress PT Short Term Goals Short Term Goals Time Frame: Jun 12, 2018 Transfers (B,C,W/C) (FIM): 5 Gait (FIM): 5 PT It Consultant Goals It Consultant Goals PT Shelter Goals Time Frame: Jun 19, 2018 Transfers (B,C,W/C) (FIM): 6 Sit to Lying (QC): 6 Lying-Sitting on Side/Bed(QC): 6 Sit to Stand (QC): 6 Rollin Roll Left to Right (QC): 6 Chair/Hnd-cp-Edpqp Xfer(QC): 6 Car Transfer (QC): 6 Does the Patient Walk: Yes Gait (FIM): 6 Gait distance (FIM): 3=150 ft Walk 10 feet (QC): 6 Walk 10ft-Uneven Surface(QC): 6 Walk 50ft with 2 Turns (QC): 6 Walk 150 ft (QC): 6 Gait Assistive Device: FWW Stairs (FIM): 5 # of Steps: 4 1 Step (curb) (QC): 6 4 Steps (QC): 6 12 Steps (QC): 88 Picking up an Object (QC): 4 PT Plan Treatment/Plan Treatment Plan: Continue Plan of Care Treatment Plan: Bed Mobility, Education, Functional Activity Frank, Functional Strength, Group Therapy, Gait, Safety, Therapeutic Exercise, Transfers Treatment Duration: Jun 19, 2018 Frequency: At least 5 of 7 days/Wk (IRF) Estimated Hrs Per Day: 1.5 hours per day Patient and/or Family Agrees t: Yes Safety Risks/Education Patient Education: Gait Training, Transfer Techniques Teaching Recipient: Patient Teaching Methods: Demonstration, Discussion Response to Teaching: Verbalize Understanding, Return Demonstration, Reinforcement Needed Time/GCodes Time In: 1330 Time Out: 1400 Total Billed Treatment Time: 30 Total Billed Treatment 1,EX15m,GT15m G Codes Necessary: HAMIDA Zhang ASSEMBLER P[employer]IC [employer]AT Jun 10, 2018 13:59
--- NOTE | 2018-06-10 14:14 | CONSULTATION REPORT ---
DATE OF SERVICE: 06/10/2018 ATTENDING PHYSICIAN: Dr. Vila - Dr. Girard. SUMMARY: An 87-year-old pleasant lady who I had seen as a new patient not too long ago at the office for mixed urinary incontinence, overactive bladder and ISD. She was doing well after her InterStim was put in by Dr. Disla and she was taking Myrbetriq 50 mg daily, which was helping her, but apparently it was too expensive for her, as she was always trying to get some samples. IMPRESSION: Mixed urinary incontinence with overactive bladder and ISD. PLAN: Change the Myrbetriq to Detrol-LA 4 mg daily, and manage accordingly. Job ID: [id number] DocumentID: [id number] Dictated Date: 06/10/2018 10:19:05 [place] Equipment Mechanic Date: 06/10/2018 14:13:26 Dictated By: MAZIN DAVIDSON MD
[2018-06-10 17:10] VITALS: BP 162/81
[2018-06-10] MEDS: MELATONIN 3 MG TABLET PO SCH (20:30)
[2018-06-10] MEDS: POLYETHYLENE GLYCOL 17 GM (MIRALAX) PACK PO SCH (20:30)
[2018-06-10] MEDS: ATORVASTATIN 10 MG (LIPITOR) TABLET PO SCH (20:30)
--- NOTE | 2018-06-10 20:37 | Progress Note (SOAP) ---
Subjective Date Seen by Provider: Jun 10, 2018 Time Seen by Provider: 12:40 Subjective/Events-last exam Fwup fall with head trauma, left elbow contusion and left hip contusion, dizziness, HTN, history of atrial fibrillation, UTI. No further dizziness. Plan is for DC home tomorrow--son gets in town tonight. Objective Exam Vital Signs Date Time Temp Pulse Resp B/P (MAP) Pulse Ox O2 Delivery O2 Flow Rate FiO2 06/10/18 17:10 97.8 62 18 162/81 (108) 96 Room Air 06/10/18 08:48 Room Air 06/10/18 06:00 97.8 61 18 151/73 (99) 94 Room Air I & O 06/10/18 07:00 Intake Total 1100 ml Balance 1100 ml Capillary Refill : General Appearance: No Apparent Distress Neck: Supple Respiratory: Lungs Clear Cardiovascular: Regular Rate, Rhythm, Systolic Murmur Gastrointestinal: normal bowel sounds, non tender, soft Extremity: Non Tender, No Calf Tenderness, No Pedal Edema Neurologic/Psychiatric: Alert, Oriented x3 Assessment/Plan Assessment/Plan Assess & Plan/Chief Complaint 1. Fall with Head Trauma--rehab for PT/OT and strengthening, home in AM 2. Left Elbow contusion--stable 3. Left Hip Contusion--stable 4. Hypertension--back on home meds and BP improved with low dose of metoprolol 5. UTI--on rocephin 6. History of Atrial Fibrillation--in NSR 7. Insomnia--DC elavil and add melatonin as the elavil may be contributing to grogginess and the dizziness 8. Dizziness--resolved Clinical Quality Measures DVT/VTE Risk/Contraindication: Risk Factor Score Per Nursin RFS Level Per Nursing on Admit: 4+=Very High NALINI ZARCO DO Jun 10, 2018 8:37 pm
[2018-06-10] MEDS ORDERED: TOLTA4 PO (20:39)
[2018-06-10] MEDS ORDERED: MELA3TAB PO (20:39)
[2018-06-10] MEDS ORDERED: METO-387 PO (20:39)
[2018-06-10] MEDS ORDERED: TOLTERODINE LA 4 MG (DETROL) CAP PO SCH (21:00)
[2018-06-11 06:11] VITALS: BP 162/74
[2018-06-11] MEDS: LEVOTHYROXINE 50 MCG (LEVOTHROID) TAB PO SCH (06:27)
[2018-06-11] MEDS: CALCIUM CARB + VIT D 600 MG (CALCARB + D) TAB PO SCH (06:28)
[2018-06-11] MEDS: PANTOPRAZOLE 20 MG TABLET (PROTONIX) PO SCH (06:28)
[2018-06-11] MEDS: APIXABAN 5 MG (ELIQUIS) TABLET PO SCH (08:10)
[2018-06-11] MEDS: DILTIAZEM 300 MG (CARDIZEM CD) CAP PO SCH (08:10)
[2018-06-11] MEDS: OMEGA 3 (FISH OIL) 1000 MG CAP PO SCH (08:10)
--- NOTE | 2018-06-11 08:37 | Occupational Ther Daily Note ---
OT Current Status-Daily Note Subjective Pt sleeping in bed, woke to name. Pt agrees to therapy. No c/o pain at this time. Pt to discharge today. Mental Status/Objective Patient Orientation: Person, Place, Time, Situation Functional [place] Measure 0=Not Assessed/NA 4=Minimal Assistance 1=Total Assistance 5=Supervision or Setup 2=Maximal Assistance 6=Modified [place] 3=Moderate Assistance 7=Complete [place] Attachments: IV ADL-Treatment Functional [place] Measure 0=Not Assessed/NA 4=Minimal Assistance 1=Total Assistance 5=Supervision or Setup 2=Maximal Assistance 6=Modified [place] 3=Moderate Assistance 7=Complete IndependenceIRFPAI Quality Coding Scale 6 Independent with activity with or without an assistive device 5 Patient requires set up or clean up by helper. Patient completes activity by themselves 4 Supervision or touching assist (CGA). [place] provide cues , steadying assist 3 The helper provides less than half the effort to complete the activity 2 The helper provides more than half the effort to complete the activity 1 Dependent. The helper does all the effort to complete an activity 7 Patient refused to complete or attempt activity 9 The patient did not perform the activity before the current illness or injury 88 Not attempted due to Medical conditions or safety concerns Eating (FIM): 6 (Dentures. Pt able to open packages/containers by self, using regular utensils to feed self.) Eating (QC): 6 Grooming (FIM): 6 (Standing at sink with FWW, pt able to complete.) Oral Hygiene (QC): 6 Bathing (FIM): 6 (Using shower bench, grabbar and hand held shower pt is able to complete by self. Pt does demonstrate slight LOB, is able to catch self. Safety concerns.) Bathing Location: L Arm, R Arm, L Upper Leg, R Upper Leg, L Lower Leg ( including foot), R Lower Leg (including foot), Chest, Abdomen, Buttocks, Perineal Area Shower/Bathe Self (QC): 6 Upper Body (FIM): 6 (Retrieves clothing using FWW. Pt able to don/doff clothing by self.) Upper Body Dressing (QC): 6 Lower Body Dressing (FIM): 6 (Retrieves clothing using FWW. Pt able to don/ doff clothing by self.) Lower Body Dressing (QC): 6 On/Off Footwear (QC): 6 Toileting (FIM): 6 (Using FWW, BSC and grabbars pt is able to complete by self. ) Toileting Hygiene (QC): 6 Transfers (B, C, W/C) (FIM): 6 Toilet/Commode Transfer (FIM): 6 (Using FWW, grabbars and BSC over toilet.) Toilet Transfer (QC): 6 Shower Transfer(FIM): 6 (Using FWW, grabbars and shower bench.) Pt has demonstrated slight LOB then is able to catch self. Pt does move slowly due to fear of falling, makes sure there is a hand hold or place to grasp. After therapy, pt sitting in recliner drinking coffee. Call light/phone in reach. All needs met in room. OT Short Term Goals Short Term Goals Time Frame: Jun 12, 2018 Eating(FIM): 5 Grooming(FIM): 5 Bathing(FIM): 5 Upper Body Dressing(FIM): 5 Lower Body Dressing(FIM): 5 Toileting(FIM): 5 Transfers (B,C,W/C) (FIM): 5 Toilet/Commode Transfer(FIM): 5 Shower Transfer(FIM): 5 Comprehension(FIM): 6 Expression(FIM): 7 Social Interaction(FIM): 7 Problem Solving(FIM): 5 Memory(FIM): 5 Additional Short Term Goals: 1-Demonstrate ADL Tasks, 2-Verbalize Understanding , 3-ImproveStrength/Frank 1=Demonstrate adherence to instructed precautions during ADL tasks. 2=Patient will verbalize/demonstrate understanding of assistive devices/ modifications for ADL. 3=Patient will improve strength/tolerance for activity to enable patient to perform ADL's. OT Penitentiary Goals Circuit Designer Goals Time Frame: Jun 19, 2018 Eating (FIM): 6 (met-06/11/2018) Eating (QC): 6 (met-06/11/2018) Groomin (met-06/11/2018) Oral Hygiene (QC): 6 (met-06/11/2018) Bathing(FIM): 6 (met-06/11/2018) Shower/Bathe Self (QC): 6 (met-06/11/2018) Upper Body Dressing(FIM): 6 (met-06/11/2018) Upper Body Dressing (QC): 6 (met-06/11/2018) Lower Body Dressing(FIM): 6 (06/11/2018) Lower Body Dressing (QC): 6 (06/11/2018) On/Off Footwear (QC): 6 (06/11/2018) Toileting(FIM): 6 (06/11/2018) Toileting Hygiene (QC): 6 (06/11/2018) Transfers (B,C,W/C) (FIM): 6 (06/11/2018) Toilet/Commode Transfer(FIM): 6 (06/11/2018) Toilet/Commode Transfer (QC): 6 (06/11/2018) Shower Transfer(FIM): 6 (06/11/2018) Comprehension(FIM): 6 Expression (FIM): 7 Social Interaction(FIM): 7 Problem Solving(FIM): 5 Memory(FIM): 6 Additional Goals: 1-Demonstrate ADL Tasks, 2-Verbalize Understanding, 3- ImproveStrength/Frank 1=Demonstrate adherence to instructed precautions during ADL tasks. 2=Patient will verbalize/demonstrate understanding of assistive devices/ modifications for ADL. 3=Patient will improve strength/tolerance for activity to enable patient to perform ADL's. OT Education/Plan Discharge Recommendations Plan/Recommendations: Discharge/Goals Met Treatment Plan/Plan of Care Patient would benefit from OT for education, treatment and training to promote independence in ADL's, mobility, safety and/or upper extremity function for ADL' s. Plan of Care: ADL Retraining, Functional Mobility, Group Exercise/Act as Ind, UE Funct Exercise/Act Treatment Duration: Jun 19, 2018 Frequency: At least 5 of 7 days/Wk (IRF) Estimated Hrs Per Day: 1.5 hours per day Agreement: Yes Rehab Potential: Good Time/GCodes Start Time: 08:00 Stop Time: 09:00 Total Time Billed (hr/min): 60 Billed Treatment Time 1 visit-ADL 4 (60 min) GERARDO JAMES Jun 11, 2018 08:37
--- NOTE | 2018-06-11 09:16 | Progress Note-Urology ---
Progress Note-Urology Progress Notes/Assess & Plan Progress/Assessment & Plan SAYS DETROL 4MG LA DAILY HELPS AND TOLERATED WELL Final Diagnosis MIXED INCONTINENCE, OAB, AND ISD MAZIN DAVIDSON MD Jun 11, 2018 9:16 am
[2018-06-11] MEDS ORDERED: TOLTA4 PO (09:29)
--- NOTE | 2018-06-11 10:26 | Physical Therapy Daily Note ---
PT Daily Note-Current Subjective Agreeable toPT. Happy to be going home today. Mental Status Patient Orientation: Person, Place, Time, Situation Transfers Functional [place] Measure 0=Not Assessed/NA 4=Minimal Assistance 1=Total Assistance 5=Supervision or Setup 2=Maximal Assistance 6=Modified [place] 3=Moderate Assistance 7=Complete IndependenceIRFPAI Quality Coding Scale 6 Independent with activity with or without an assistive device 5 Patient requires set up or clean up by helper. Patient completes activity by themselves 4 Supervision or touching assist (CGA). [place] provide cues , steadying assist 3 The helper provides less than half the effort to complete the activity 2 The helper provides more than half the effort to complete the activity 1 Dependent. The helper does all the effort to complete an activity 7 Patient refused to complete or attempt activity 9 The patient did not perform the activity before the current illness or injury 88 Not attempted due to Medical conditions or safety concerns Transfers (B, C, W/C) (FIM): 6 Roll Left to Right (QC): 6 Sit to Lying (QC): 6 Sit to Stand (QC): 6 Chair/Mrs-bv-Slbfj Xfer(QC): 6 Car Transfer (QC): 6 Pt is mod indep with all functional transfers. Weight Bearing Right Lower Extremity: Right Full Weight Bearing Left Lower Extremity: Left Full Weight Bearing Gait Training Does the Patient Walk?: Yes Gait (FIM): 6 Distance (FIM): 3=150 ft Distance: 200 ft x 2 Walk 10 feet (QC): 6 Walk 50 ft with 2 Turns(QC): 6 Walk 150 ft (QC): 6 Walking 10ft/uneven surface-QC: 6 Gait Assistive Device: FWW Safe and steady gait. Wheelchair Training Does the Pt Use a Wheelchair?: No Stair Training Stair Training: Handrails/: 2 handrails Stairs (FIM): 5 (household distance) #of Steps: 4 1 Step (curb) (QC): 6 4 Steps (QC): 6 12 Steps (QC): 88 Stairs: Pattern: Step to Balance Picking up an Object (QC): 5 Assessment Current Status: Excellent Progress Pt making good progress and meeting PT goals. Pt safe to discharge this date. PT Short Term Goals Short Term Goals Time Frame: Jun 12, 2018 Transfers (B,C,W/C) (FIM): 5 Gait (FIM): 5 PT Applications Processor Goals Applications Processor Goals PT Applications Processor Goals Time Frame: Jun 19, 2018 Transfers (B,C,W/C) (FIM): 6 (met) Sit to Lying (QC): 6 (met) Lying-Sitting on Side/Bed(QC): 6 (met) Sit to Stand (QC): 6 (met) Rollin Roll Left to Right (QC): 6 (met) Chair/Nlr-cu-Qnbue Xfer(QC): 6 (met) Car Transfer (QC): 6 (met) Does the Patient Walk: Yes Gait (FIM): 6 (met) Gait distance (FIM): 3=150 ft Walk 10 feet (QC): 6 (met) Walk 10ft-Uneven Surface(QC): 6 (met) Walk 50ft with 2 Turns (QC): 6 (met) Walk 150 ft (QC): 6 (met) Gait Assistive Device: FWW Stairs (FIM): 5 (met) # of Steps: 4 1 Step (curb) (QC): 6 (met) 4 Steps (QC): 6 (met) 12 Steps (QC): 88 Picking up an Object (QC): 4 (met) PT Plan Problem List Problem List: Activity Tolerance, Functional Strength, Safety Treatment/Plan Treatment Plan: Discontinue PT, goals met Treatment Plan: Bed Mobility, Education, Functional Activity Frank, Functional Strength, Group Therapy, Gait, Safety, Therapeutic Exercise, Transfers Treatment Duration: Jun 19, 2018 Frequency: At least 5 of 7 days/Wk (IRF) Estimated Hrs Per Day: 1.5 hours per day Patient and/or Family Agrees t: Yes Safety Risks/Education Patient Education: Transfer Techniques, Safety Issues Teaching Recipient: Patient Teaching Methods: Demonstration, Discussion Response to Teaching: Verbalize Understanding, Return Demonstration Discharge Recommendations Therapy D/C Recommendations: Physical Therapy Home Care Time/GCodes Time In: 900 Time Out: 930 Total Billed Treatment Time: 30 Total Billed Treatment visit FA 30 GERARDO MILTON PT Jun 11, 2018 10:26
--- NOTE | 2018-06-11 10:30 | Therapy Team Discharge Summary ---
Therapy Discharge Summary Discharge Recommendations Date of Discharge 06/11/2018 Therapy D/C Recommendations: Physical Therapy Home Care Physical Therapy This patient was transferred to ARU post acute stay due to a fall in which she hit her head. Prior to this event, she was mod indep with all mobilty, living alone, driving and walking community distances. Upon admission to this unit, she was min assist with bed mobility, transfers and gait for short distances. Treatment focused on functional strength to improve her gait, transfers, balance , safety and functional activity tolerance. Pt has met all goals set at evaluation and appears ready for discharge this date. She is mod indep with transfers, gait and stairs with improved functional strength and balance. Recommend follow up [facility] PT at discharge. DC from ARU at this time. Occupational Therapy Decreased Activ Tolerance, Dependent Transfers, Impaired I ADL's, Impaired Self- Care Skills PT Lead Painter Goals Group Home Goals PT Group Home Goals Time Frame: Jun 19, 2018 Transfers (B,C,W/C) (FIM): 6 (met) Roll Left to Right (QC): 6 (met) Sit to Lying (QC): 6 (met) Lying-Sitting on Side/Bed(QC): 6 (met) Sit to Stand (QC): 6 (met) Chair/Oqe-ji-Hnuvk Xfer(QC): 6 (met) Car Transfer (QC): 6 (met) Does the Patient Walk: Yes Gait (FIM): 6 (met) Gait distance (FIM): 3=150 ft Walk 10 feet (QC): 6 (met) Walk 10ft-Uneven Surface(QC): 6 (met) Walk 50ft with 2 Turns (QC): 6 (met) Walk 150 ft (QC): 6 (met) Gait Assistive Device: FWW Stairs (FIM): 5 (met) # of Steps: 4 1 Step (curb) (QC): 6 (met) 4 Steps (QC): 6 (met) 12 Steps (QC): 88 Picking up an Object (QC): 4 (met) All goals met to a satisfactory level. OT Group Home Goals Lead Painter Goals Time Frame: Jun 19, 2018 Eating (FIM): 6 (met-06/11/2018) Eating (QC): 6 (met-06/11/2018) Oral Hygiene (QC): 6 (met-06/11/2018) Grooming(FIM): 6 (met-06/11/2018) Bathing(FIM): 6 (06/11/2018) Shower/Bathe Self (QC): 6 (06/11/2018) Upper Body Dressing(FIM): 6 (06/11/2018) Upper Body Dressing (QC): 6 (06/11/2018) Lower Body Dressing(FIM): 6 (06/11/2018) Lower Body Dressing (QC): 6 (06/11/2018) On/Off Footwear (QC): 6 (06/11/2018) Toileting(FIM): 6 (06/11/2018) Toileting Hygiene (QC): 6 (06/11/2018) Transfers (B,C,W/C) (FIM): 6 (06/11/2018) Toilet/Commode Transfer(FIM): 6 (06/11/2018) Toilet/Commode Transfer (QC): 6 (06/11/2018) Shower Transfer(FIM): 6 (06/11/2018) Comprehension(FIM): 6 Expression (FIM): 7 Social Interaction(FIM): 7 Problem Solving(FIM): 5 Memory(FIM): 6 Additional Goals: 1-Demonstrate ADL Tasks, 2-Verbalize Understanding, 3- ImproveStrength/Frank 1=Demonstrate adherence to instructed precautions during ADL tasks. 2=Patient will verbalize/demonstrate understanding of assistive devices/ modifications for ADL. 3=Patient will improve strength/tolerance for activity to enable patient to perform ADL's. Speech Lead Painter Goals Group Home Goals Pt will exhibit functional memory for independence in the home. Comprehension: 6 Expression: 7 Social Interaction: 7 Problem Solvin Memory: 6 GERARDO MILTON PT Jun 11, 2018 10:30
[2018-06-11 10:45] VITALS: BP 162/74
--- NOTE | 2018-06-11 14:18 | Therapy Team Discharge Summary ---
Therapy Discharge Summary Discharge Recommendations Date of Discharge Jun 11, 2018 at 10:45 Therapy D/C Recommendations: Physical Therapy Home Care Occupational Therapy Decreased Activ Tolerance, Dependent Transfers, Impaired I ADL's, Impaired Self- Care Skills Speech-Language Pathology Pt was seen for skilled ST for memory impairments. She was provided with techniques to help recall but pt was not very successful putting them into practice. However, she completed the majority of memory activities with high levels of accuracy...at leas 85% and min cues. She is dc'd from skilled speech services and does not require additional speech tx after discharge. PT Fdc Goals Fdc Goals PT Fdc Goals Time Frame: Jun 19, 2018 Transfers (B,C,W/C) (FIM): 6 (met) Roll Left to Right (QC): 6 (met) Sit to Lying (QC): 6 (met) Lying-Sitting on Side/Bed(QC): 6 (met) Sit to Stand (QC): 6 (met) Chair/Zgj-ix-Hjtit Xfer(QC): 6 (met) Car Transfer (QC): 6 (met) Does the Patient Walk: Yes Gait (FIM): 6 (met) Gait distance (FIM): 3=150 ft Walk 10 feet (QC): 6 (met) Walk 10ft-Uneven Surface(QC): 6 (met) Walk 50ft with 2 Turns (QC): 6 (met) Walk 150 ft (QC): 6 (met) Gait Assistive Device: FWW Stairs (FIM): 5 (met) # of Steps: 4 1 Step (curb) (QC): 6 (met) 4 Steps (QC): 6 (met) 12 Steps (QC): 88 Picking up an Object (QC): 4 (met) OT Fdc Goals Track Patrol Goals Time Frame: Jun 19, 2018 Eating (FIM): 6 (met-06/11/2018) Eating (QC): 6 (met-06/11/2018) Oral Hygiene (QC): 6 (met-06/11/2018) Grooming(FIM): 6 (met-06/11/2018) Bathing(FIM): 6 (met-06/11/2018) Shower/Bathe Self (QC): 6 (met-06/11/2018) Upper Body Dressing(FIM): 6 (met-06/11/2018) Upper Body Dressing (QC): 6 (06/11/2018) Lower Body Dressing(FIM): 6 (06/11/2018) Lower Body Dressing (QC): 6 (06/11/2018) On/Off Footwear (QC): 6 (06/11/2018) Toileting(FIM): 6 (06/11/2018) Toileting Hygiene (QC): 6 (06/11/2018) Transfers (B,C,W/C) (FIM): 6 (06/11/2018) Toilet/Commode Transfer(FIM): 6 (06/11/2018) Toilet/Commode Transfer (QC): 6 (06/11/2018) Shower Transfer(FIM): 6 (06/11/2018) Comprehension(FIM): 6 Expression (FIM): 7 Social Interaction(FIM): 7 Problem Solving(FIM): 5 Memory(FIM): 6 Additional Goals: 1-Demonstrate ADL Tasks, 2-Verbalize Understanding, 3- ImproveStrength/Frank 1=Demonstrate adherence to instructed precautions during ADL tasks. 2=Patient will verbalize/demonstrate understanding of assistive devices/ modifications for ADL. 3=Patient will improve strength/tolerance for activity to enable patient to perform ADL's. Speech Fdc Goals Fdc Goals Pt will exhibit functional memory for independence in the home. Comprehension: 6 Expression: 7 Social Interaction: 7 Problem Solvin Memory: 6 ROYCE XIONG Jun 11, 2018 14:18
--- NOTE | 2018-06-11 15:59 | Therapy Team Discharge Summary ---
Therapy Discharge Summary Discharge Recommendations Date of Discharge Jun 11, 2018 at 10:45 Therapy D/C Recommendations: Home w/ Family Support, Physical Therapy Home Care Occupational Therapy Pt. seen by occupational therapy to increase overall strength and independence with daily skills. Pt. has met all goals, and is able to complete ADLs with Mod I. Pt. is discharging home with family support. Decreased Activ Tolerance, Dependent Transfers, Impaired I ADL's, Impaired Self- Care Skills PT Vacuum Metalizing Supervisor Goals Vacuum Metalizing Supervisor Goals PT Usp Goals Time Frame: Jun 19, 2018 Transfers (B,C,W/C) (FIM): 6 (met) Roll Left to Right (QC): 6 (met) Sit to Lying (QC): 6 (met) Lying-Sitting on Side/Bed(QC): 6 (met) Sit to Stand (QC): 6 (met) Chair/Ojf-el-Dnbft Xfer(QC): 6 (met) Car Transfer (QC): 6 (met) Does the Patient Walk: Yes Gait (FIM): 6 (met) Gait distance (FIM): 3=150 ft Walk 10 feet (QC): 6 (met) Walk 10ft-Uneven Surface(QC): 6 (met) Walk 50ft with 2 Turns (QC): 6 (met) Walk 150 ft (QC): 6 (met) Gait Assistive Device: FWW Stairs (FIM): 5 (met) # of Steps: 4 1 Step (curb) (QC): 6 (met) 4 Steps (QC): 6 (met) 12 Steps (QC): 88 Picking up an Object (QC): 4 (met) OT Usp Goals Vacuum Metalizing Supervisor Goals Time Frame: Jun 19, 2018 Eating (FIM): 6 (met-06/11/2018) Eating (QC): 6 (met-06/11/2018) Oral Hygiene (QC): 6 (met-06/11/2018) Grooming(FIM): 6 (met-06/11/2018) Bathing(FIM): 6 (met-06/11/2018) Shower/Bathe Self (QC): 6 (met-06/11/2018) Upper Body Dressing(FIM): 6 (met-06/11/2018) Upper Body Dressing (QC): 6 (met-06/11/2018) Lower Body Dressing(FIM): 6 (met-06/11/2018) Lower Body Dressing (QC): 6 (06/11/2018) On/Off Footwear (QC): 6 (06/11/2018) Toileting(FIM): 6 (06/11/2018) Toileting Hygiene (QC): 6 (06/11/2018) Transfers (B,C,W/C) (FIM): 6 (06/11/2018) Toilet/Commode Transfer(FIM): 6 (06/11/2018) Toilet/Commode Transfer (QC): 6 (06/11/2018) Shower Transfer(FIM): 6 (06/11/2018) Comprehension(FIM): 6 Expression (FIM): 7 Social Interaction(FIM): 7 Problem Solving(FIM): 5 Memory(FIM): 6 Additional Goals: 1-Demonstrate ADL Tasks, 2-Verbalize Understanding, 3- ImproveStrength/Frank 1=Demonstrate adherence to instructed precautions during ADL tasks. 2=Patient will verbalize/demonstrate understanding of assistive devices/ modifications for ADL. 3=Patient will improve strength/tolerance for activity to enable patient to perform ADL's. Speech Usp Goals Vacuum Metalizing Supervisor Goals Pt will exhibit functional memory for independence in the home. Comprehension: 6 Expression: 7 Social Interaction: 7 Problem Solvin Memory: 6 MALINI MCKEE OT Jun 11, 2018 15:59
--- NOTE | 2018-06-18 07:52 | Speech Therapy Daily Note ---
Speech Daily Progress Note Subjective Date Seen by Provider: Jun 09, 2018 Time Seen by Provider: 14:00 Pt pleasant and cooperative. Pain Numeric Pain Scale: 0-No Pain Objective Memory: Picture recall with pt verbalizing out loud to facilitate recall. Pt was 90% accurate. Reordering words based on each series of words. The pt was 85% accurate with min cues and repetitions x3. Assessment Assessment Current Status: Regressing Treatment Plan Continue Plan of Care Communication Comprehension: 6 Expression: 7 Social Cognition Social Interaction: 7 Problem Solvin Memory: 4 Speech Short Term Goals Short Term Goals Short Term Goals Pt's accuracy for recall for various memory activities will be at least 85% accurate. Time Frame-ST week Comprehension: 6 Expression: 7 Social Interaction: 7 Problem Solvin Memory: 5 Speech Care Home Goals Care Home Goals Pt will exhibit functional memory for independence in the home. Comprehension: 6 Expression: 7 Social Interaction: 7 Problem Solvin Memory: 6 Speech-Plan Patient/Family Goals Patient/Family Goals: to return home. Treatment Plan Speech Therapy Treatment Plan: Continue Plan of Care Pt making progress so continue aleks ST. Treatment Duration: Jun 19, 2018 Frequency: 5 times per week Estimated Hrs Per Day: .5 hour per day Rehab Potential: Good Pt/Family Agrees to Plan: Yes Safety Risks/Education Teaching Recipient: Patient Teaching Methods: Discussion Response to Teaching: Verbalize Understanding Time Speech Therapy Time In: 14:00 Speech Therapy Time Out: 14:30 Total Billed Time: 30 Billed Treatment Time 1SAM This note is for 06/09/18. No (14) ROYCE XIONG Jun 18, 2018 07:52
--- NOTE | 2018-06-25 02:27 | DISCHARGE SUMMARY ---
DATE OF SERVICE: 06/24/2018 HISTORY OF PRESENT ILLNESS: The patient is an 87-year-old female who had been independent living in her own apartment who had a fall with resulting concussion, left elbow contusion, left hip contusion. The patient has some dizziness related to this and as a result she had damaged her hearing aids as well. She was found to have UTI, placed on antibiotics. She was admitted to [facility] and followed by Dr. James and PCP, Dr. Girard and therapies were begun. The patient was felt to be appropriate for inpatient rehabilitation unit. PAST MEDICAL HISTORY: Hypertension, recent UTI, atrial fibrillation, coronary artery disease, [place]. PAST SURGICAL HISTORY: Appendectomy, bladder surgery, eye surgery, cholecystectomy, hysterectomy, oophorectomy, rectal surgery. SOCIAL HISTORY: She is a . She has a supportive daughter who presents bedside, but lives in [place], [place]. MEDICAL COURSE: The patient was followed by Dr. Vila and Dr. Girard while on rehab unit. She gradually improved. She was afebrile during her stay. Her pulse was 69 on 06/11/2018, respirations 18, blood pressure /74, O2 sat 95% on room air. She was seen by Dr. Jimenez on 06/10/2018. His impression was mixed urinary incontinence with overactive bladder and ISD. Plan was to change to Detrol-LA. REHABILITATION COURSE: She was seen by speech therapy. They noted some mild memory impairments. She was provided with techniques to help recall, but the patient had difficulty putting them into practice; however, she completed the majority of memory activities. There is a high level of accuracy at least 85% with minimal cues. PT notes upon admission to rehab unit she was min assist for bed mobility, transfers and gait for short distances. Treatment is focused on functional strength to improve her gait, transfers, balance safety and functional activity tolerance. She has met all the goals and upon discharge she is modified independent with transfers, gait and stairs with improved functional strength and balance. OT notes upon admission, she was set up for grooming and upper body dressing, min assist for lower body dressing and transfers. Upon discharge, she has met all goals and is able to complete ADLs with modified independence. DISCHARGE INSTRUCTIONS: She will have followup with Dr. Jimenez and her PCP. Continue current diet. She will have home health care services. DISCHARGE MEDICATIONS: Melatonin 6 mg p.o. at bedtime, metoprolol 25 mg p.o. daily, Detrol-LA 4 mg p.o. at bedtime, Eliquis 5 mg p.o. b.i.d., Lipitor 10 mg p.o. Saturday, Saturday, Saturday; calcium with vitamin D3 one tablet p.o. b.i.d., diltiazem 300 mg p.o. daily, levothyroxine 50 mcg p.o. daily, fish oil 1 capsule p.o. daily, omeprazole 20 mg p.o. daily, Ocuvite soft gel one capsule p.o. daily. DISCHARGE DIAGNOSES: 1. Rehabilitation concussion, improved. 2. Contusion, left elbow, improved. 3. Contusion, left hip, improved. 4. Hypertension, controlled with medication. 5. Atrial fibrillation, controlled with medication. 6. Coronary artery disease. 7. Insomnia. 8. Old myocardial infarction. 9. Concussion due to fall. 10. Place of fall, apartment. 11. Mixed incontinence. 12. Overactive bladder. 13. ISD. DISCHARGE INSTRUCTIONS: She will follow up with her PCP, Dr. Girard. CONDITION AT DISCHARGE: Improved and stable. PROGNOSIS: Rehab prognosis appears good for continued improvement at home and return to independent living. She may at some point consider an assisted living facility due to her age, history of falls, concussion and multiple comorbidities. Job ID: [id number] DocumentID: [id number] Dictated Date: 06/24/2018 11:55:56 Global Marketing Manager Date: 06/25/2018 02:26:26 Dictated By: VIELKA VILA MD [facility]
== END 2018-06-11 10:45 | disposition home health service (06) | DRG 950 ==
PROVIDERS: ADMIT Physical Medicine & Rehabilitation; ATTEND Physical Medicine & Rehabilitation
DX: S06.0X9D Concussion with loss of consciousness of unspecified duration, subsequent encounter (principal); S50.02XD Contusion of left elbow, subsequent encounter; S70.02XD Contusion of left hip, subsequent encounter; I10 Essential (primary) hypertension; I48.91 Unspecified atrial fibrillation; I25.10 Atherosclerotic heart disease of native coronary artery without angina pectoris; N39.46 Mixed incontinence; N32.81 Overactive bladder; N36.42 Intrinsic sphincter deficiency (ISD); G47.00 Insomnia, unspecified; I25.2 Old myocardial infarction; W19.XXXD Unspecified fall, subsequent encounter; Y92.039 Unspecified place in apartment as the place of occurrence of the external cause